=== PATIENT | female | born 1950 | race Caucasian/White ===

== ENCOUNTER → 2017-08-28 05:00 | Outpatient (REF) | payer MEDICARE, SELFPAY ==
[2017-08-28 09:52] LABS: Valproic Acid (Depakene) Level 62 ug/mL (50-100)
[2017-08-28 09:57] LABS: AST(SGOT) 18 U/L (15-37); Alanine Aminotransfer ALT/SGPT 29 U/L (13-56); Albumin, Serum 3.3 g/dL (3.2-5.0); Alkaline Phosphatase 72 U/L (45-117); Bilirubin, Direct < 0.05 mg/dL (0.00-0.30); Globulin 3.5 g/dL (2.2-4.2); Protein, Total 6.8 g/dL (6.4-8.2)
== END ==
LOC: OLS.WHLBEN 05:00
PROVIDERS: Visit Provider Family Medicine
DX: Z79.899 Other long term (current) drug therapy (principal)
CPT/HCPCS: 36415; 80076; 80164

== ENCOUNTER → 2017-11-21 05:00 | Outpatient (REF) | payer MEDICARE, SELFPAY ==
[2017-11-21 08:14] LABS: Hemoglobin 13.1 g/dl (12.0-15.0); Mean Corp Hgb Conc 33.6 g/gl (32-36); Mean Corpuscular Hgb 31.6 pg (27.0-32.0); Mean Platelet Vol. 10.7 fl (6.2-12.0); Platelet Count 261 K/mm3 (150-450); RBC Distribution Width CV 14.1 % (11.6-14.6); Red Blood Count 4.15 M/mm3 (4.2-5.4); White Blood Count 9.6 K/mm3 (4.4-11.0)
[2017-11-21 08:21] LABS: Scan Indicated on CBC? Y/N NO
[2017-11-21 08:26] LABS: Albumin, Serum 3.5 g/dL (3.2-5.0); BUN 10 mg/dL (7-18); BUN/Creat Ratio 14.9 RATIO (10-20); Creatinine, Serum 0.67 mg/dL (0.55-1.02); EST Glomerular Filtration Rate 93 mL/min (>60); Est Glom Filt Rate - Afr Amer 113 mL/min (>60); Glucose 112 mg/dL (74-106); Protein, Total 7.2 g/dL (6.4-8.2)
[2017-11-21 08:27] LABS: AST(SGOT) 11 U/L (15-37); Alanine Aminotransfer ALT/SGPT 20 U/L (13-56); Alkaline Phosphatase 77 U/L (45-117); Anion Gap 8 (5-15); Bilirubin, Direct < 0.05 mg/dL (0.00-0.30); Calcium,Total 8.9 mg/dL (8.5-10.1); Chloride 98 mmol/L (98-107); Cholesterol 105 mg/dL (200); Globulin 3.7 g/dL (2.2-4.2); High Density Lipoprotein 34 mg/dL; Potassium 4.7 mmol/L (3.5-5.1); Sodium Level 135 mmol/L (136-145); Total Bilirubin < 0.10 mg/dL (0.20-1.00); Triglycerides 156 mg/dL; Very Low Density Lipoprotein 31 mg/dL (5-40)
[2017-11-21 08:28] LABS: Valproic Acid (Depakene) Level 60 ug/mL (50-100)
[2017-11-21 08:49] LABS: Vitamin D,25 Hydroxy 42.1 ng/mL (29.95-100.01)
[2017-11-21 08:50] LABS: Hemoglobin A1c 6.9 % (4.2-6.3)
== END ==
LOC: OLS.WHLBEN 05:00
PROVIDERS: Visit Provider Family Medicine
DX: E11.9 Type 2 diabetes mellitus without complications (principal); I10 Essential (primary) hypertension; E78.5 Hyperlipidemia, unspecified; E55.9 Vitamin D deficiency, unspecified
CPT/HCPCS: 36415; 80048; 80061; 80076; 80164; 82306; 83036; 85027

== ENCOUNTER → 2017-12-22 07:20 | Outpatient (REF) | payer MEDICARE, SELFPAY ==
[2017-12-23 16:24] LABS: Mucous, Urine 0 SEEN /hpf (<or=2+); Red Blood Cells-Urine 0 SEEN /hpf (0-5)
[2017-12-24 08:56] LABS: Anion Gap 10 (5-15); BUN 11 mg/dL (7-18); BUN/Creat Ratio 17.5 RATIO (10-20); Calcium,Total 8.5 mg/dL (8.5-10.1); Chloride 95 mmol/L (98-107); Creatinine, Serum 0.63 mg/dL (0.55-1.02); EST Glomerular Filtration Rate 101 mL/min (>60); Est Glom Filt Rate - Afr Amer 122 mL/min (>60); Glucose 106 mg/dL (74-106); Potassium 4.2 mmol/L (3.5-5.1); Sodium Level 133 mmol/L (136-145)
[2017-12-24 08:57] LABS: Thyroid Stim Hormone (TSH) 2.75 uIU/mL (0.358-3.74)
[2017-12-25 07:11] LABS: Bacteria RARE /hpf (None Seen); Color, Urine Yellow (Yellow); Glucose, Dipstick NEGATIVE (Normal); Ketone-Dipstick Negative (Negative); Leukocyte Esterase-Dipstick 25 /ul (Negative); Nitrite-Dipstick Negative (Negative); Occult Blood-Urine Negative /ul (Negative); Protein-Dipstick Negative (Negative); Specific Gravity, Urine 1.015 (1.002-1.030); Squamous Epithelial Cells - UA 0-5 SEEN /hpf (5-10); Urine Bilirubin Dipstick Negative (Negative); Urine Clarity Clear (Clear); Urine Urobilinogen Normal (Normal); White Blood Cells 0-5 SEEN /hpf (0-5)
[2017-12-25 20:26] LABS: Hematocrit 38.5 % (37-47); Mean Corp Hgb Conc 33.8 g/gl (32-36); Mean Corpuscular Hgb 31.3 pg (27.0-32.0); Mean Corpuscular Volume 92.5 fL (81-99); Platelet Count 258 K/mm3 (150-450); RBC Distribution Width CV 14.4 % (11.6-14.6); RBC Distribution Width SD 49.2 fl (35.1-43.9); Red Blood Count 4.16 M/mm3 (4.2-5.4); White Blood Count 9.6 K/mm3 (4.4-11.0)
[2017-12-25 20:27] LABS: Mean Platelet Vol. 10.5 fl (6.2-12.0); Scan Indicated on CBC? Y/N NO
== END ==
LOC: OLS.WHLBEN 07:20
PROVIDERS: Visit Provider Family Medicine
DX: I10 Essential (primary) hypertension (principal); E03.9 Hypothyroidism, unspecified; R41.0 Disorientation, unspecified
CPT/HCPCS: 36415; 80048; 81001; 84443; 85027; 87086; 87088

== ENCOUNTER → 2018-01-09 05:00 | Outpatient (REF) | payer MEDICARE, SELFPAY ==
[2018-01-09 07:06] LABS: Valproic Acid (Depakene) Level 81 ug/mL (50-100)
== END ==
LOC: OLS.WHLBEN 05:00
PROVIDERS: Visit Provider Family Medicine
DX: Z79.899 Other long term (current) drug therapy (principal)
CPT/HCPCS: 36415; 80164

== ENCOUNTER → 2018-01-28 05:00 | Outpatient (REF) | payer MEDICARE, SELFPAY ==
[2018-01-28 09:28] LABS: Hematocrit 38.9 % (37-47); Hemoglobin 13.1 g/dl (12.0-15.0); Mean Corp Hgb Conc 33.7 g/gl (32-36); Mean Corpuscular Hgb 31.6 pg (27.0-32.0); Mean Platelet Vol. 10.9 fl (6.2-12.0); Platelet Count 257 K/mm3 (150-450); RBC Distribution Width CV 14.2 % (11.6-14.6); RBC Distribution Width SD 46.9 fl (35.1-43.9); Red Blood Count 4.14 M/mm3 (4.2-5.4); White Blood Count 8.8 K/mm3 (4.4-11.0)
[2018-01-28 09:38] LABS: Scan Indicated on CBC? Y/N NO
[2018-01-28 09:48] LABS: AST(SGOT) 13 U/L (15-37); Alanine Aminotransfer ALT/SGPT 18 U/L (13-56); Albumin, Serum 3.5 g/dL (3.2-5.0); Alkaline Phosphatase 74 U/L (45-117); Anion Gap 10 (5-15); BUN 10 mg/dL (7-18); BUN/Creat Ratio 15.3 RATIO (10-20); Calcium,Total 8.6 mg/dL (8.5-10.1); Chloride 98 mmol/L (98-107); Creatinine, Serum 0.65 mg/dL (0.55-1.02); EST Glomerular Filtration Rate 97 mL/min (>60); Est Glom Filt Rate - Afr Amer 117 mL/min (>60); Globulin 3.5 g/dL (2.2-4.2); Glucose 96 mg/dL (74-106); Sodium Level 136 mmol/L (136-145); Thyroid Stim Hormone (TSH) 4.45 uIU/mL (0.358-3.74)
== END ==
LOC: OLS.WHLBEN 05:00
PROVIDERS: Visit Provider Family Medicine
DX: I10 Essential (primary) hypertension (principal); E78.5 Hyperlipidemia, unspecified
CPT/HCPCS: 36415; 80053; 84443; 85027

== ENCOUNTER → 2018-02-25 05:00 | Outpatient (REF) | payer MEDICARE, MEDICAID, SELFPAY ==
[2018-02-25 09:39] LABS: Valproic Acid (Depakene) Level 83 ug/mL (50-100)
[2018-02-25 09:52] LABS: AST(SGOT) 15 U/L (15-37); Alanine Aminotransfer ALT/SGPT 18 U/L (13-56); Albumin, Serum 3.6 g/dL (3.2-5.0); Alkaline Phosphatase 76 U/L (45-117); Bilirubin, Direct 0.05 mg/dL (0.00-0.30); Globulin 3.9 g/dL (2.2-4.2); Protein, Total 7.5 g/dL (6.4-8.2); Thyroid Stim Hormone (TSH) 3.71 uIU/mL (0.358-3.74)
== END ==
LOC: OLS.WHLBEN 05:00
PROVIDERS: Visit Provider Family Medicine
DX: E78.5 Hyperlipidemia, unspecified (principal); E03.9 Hypothyroidism, unspecified; Z79.899 Other long term (current) drug therapy
CPT/HCPCS: 36415; 80076; 80164; 84443

== ENCOUNTER → 2018-03-06 16:00 | Outpatient (REF) | payer MEDICARE, SELFPAY ==
[2018-03-07 09:16] LABS: Color, Urine Yellow (Yellow); Glucose, Dipstick Normal (Normal); Ketone-Dipstick Negative (Negative); Leukocyte Esterase-Dipstick 100 /ul (Negative); Nitrite-Dipstick Negative (Negative); Occult Blood-Urine Negative /ul (Negative); Protein-Dipstick Negative (Negative); Urine Bilirubin Dipstick Negative (Negative); Urine Clarity Sl. Cloudy (Clear); Urine Urobilinogen Normal (Normal)
== END ==
LOC: OLS.WHLBEN 16:00
PROVIDERS: Visit Provider Family Medicine
DX: R10.2 Pelvic and perineal pain (principal); R41.0 Disorientation, unspecified
CPT/HCPCS: 81002; 87086; 87088

== ENCOUNTER → 2018-05-21 05:00 | Outpatient (REF) | payer MEDICARE, SELFPAY ==
[2018-05-21 08:48] LABS: Hematocrit 41.3 % (37-47); Hemoglobin 13.6 g/dl (12.0-15.0); Mean Corp Hgb Conc 32.9 g/gl (32-36); Mean Corpuscular Hgb 31.7 pg (27.0-32.0); Mean Corpuscular Volume 96.3 fL (81-99); Mean Platelet Vol. 11.1 fl (6.2-12.0); Platelet Count 294 K/mm3 (150-450); RBC Distribution Width CV 14.3 % (11.6-14.6); RBC Distribution Width SD 48.8 fl (35.1-43.9); Red Blood Count 4.29 M/mm3 (4.2-5.4); White Blood Count 9.9 K/mm3 (4.4-11.0)
[2018-05-21 08:52] LABS: Scan Indicated on CBC? Y/N NO
[2018-05-21 09:02] LABS: Valproic Acid (Depakene) Level 73 ug/mL (50-100)
[2018-05-21 09:11] LABS: Vitamin D,25 Hydroxy 29.2 ng/mL (29.95-100.01)
[2018-05-21 09:32] LABS: AST(SGOT) 11 U/L (15-37); Alanine Aminotransfer ALT/SGPT 20 U/L (13-56); Albumin, Serum 3.6 g/dL (3.2-5.0); Alkaline Phosphatase 74 U/L (45-117); Anion Gap 10 (5-15); BUN 19 mg/dL (7-18); BUN/Creat Ratio 28.1 RATIO (10-20); Bilirubin, Direct < 0.05 mg/dL (0.00-0.30); Chloride 101 mmol/L (98-107); Creatinine, Serum 0.68 mg/dL (0.55-1.02); EST Glomerular Filtration Rate 92 mL/min (>60); Est Glom Filt Rate - Afr Amer 112 mL/min (>60); Globulin 3.9 g/dL (2.2-4.2); Glucose 104 mg/dL (74-106); Potassium 4.3 mmol/L (3.5-5.1); Protein, Total 7.5 g/dL (6.4-8.2); Sodium Level 137 mmol/L (136-145)
== END ==
LOC: OLS.WHLBEN 05:00
PROVIDERS: Visit Provider Family Medicine
DX: E11.9 Type 2 diabetes mellitus without complications (principal); I10 Essential (primary) hypertension; E78.5 Hyperlipidemia, unspecified; Z79.899 Other long term (current) drug therapy
CPT/HCPCS: 36415; 80048; 80076; 80164; 82306; 85027

== ENCOUNTER → 2018-07-03 11:03 | Outpatient (CLI) | payer MEDICARE, SELFPAY ==
[2018-07-03 12:13] LABS: Vitamin B12 1578 pg/mL (211-911)
[2018-07-03 12:16] LABS: Anion Gap 9 (5-15); Chloride 100 mmol/L (98-107); Potassium 4.5 mmol/L (3.5-5.1); Sodium Level 137 mmol/L (136-145); Thyroid Stim Hormone (TSH) 2.18 uIU/mL (0.358-3.74)
[2018-07-04 23:53] LABS: Rapid Plasmin Reagin (RPR) NONREACTIVE (NONREACTIVE)
--- OUTSIDE RECORDS SUMMARY | 2018-10-04 15:23 | XMS RPT_ITS ---
:1950 Author Organization OHIP Support Name Relationship Address Phone ABDIAZIZ HOYOSNIE Unavailable [phone] + [place] [address] ANNE MARIE, PRUDENCE Unavailable [address] + [place] [address] [employer] Unavailable [address] + [place] [address] Crilow, Vijaya Unavailable [address] + [place] [address] Anne Marie, Prudence Unavailable [address] + [place] [address] [employer] Unavailable [address] + [place] [address] Crilow, Vijaya Unavailable [address] + [place] [address] Anne Marie, Prudence Unavailable [address] + [place] [address] [employer] Unavailable [address] + [place] [address] CRILOW, VIJAYA Unavailable [address] + [place] [address] ANNE MARIE, PRUDENCE Unavailable [address] + [place] [address] [employer] Unavailable [address] + [place] [address] Crilow, Vijaya Unavailable [address] + [place] [address] Anne Marie, Prudence Unavailable [address] + [place] [address] [employer] Unavailable [address] + [place] [address] Crilow, Vijaya Unavailable [address] + [place] [address] Anne Marie, Prudence Unavailable [address] + [place] [address] [employer] Unavailable [address] + [place] [address] Crilow, Vijaya Unavailable [address] + [place] [address] Anne Marie, Prudence Unavailable [address] + [place] [address] [employer] Unavailable [address] + [place] [address] Crilow, Vijaya Unavailable [address] + [place] [address] Anne Marie, Prudence Unavailable [address] + [place] [address] [employer] Unavailable [address] + [place] [address] Crilow, Vijaya Unavailable [address] + [place] [address] Anne Marie, Prudence Unavailable [address] + [place] [address] [employer] Unavailable [address] + [place] [address] Care Team Providers Name Role Phone Russell Montalvo Attending Unavailable Russell Montalvo Referring Magdy Novak Primary Care Unavailable Magdy Mcbride Attending Unavailable Mcbride, Magdy Attending Unavailable Mcbride, Magdy Attending Unavailable Mcbride, Magdy Attending Unavailable Mcbride, Magdy Attending Unavailable Mcbride, Magdy Attending Unavailable Mcbride, Magdy Attending Unavailable McbrideMagdy Attending Unavailable PROBLEMS PROBLEMS DATE TYPE CONDITION / CODE ATTENDING STATUS SOURCE 04/26/2018 Unknown G47.51 - Magdy Mcbride [facility] ar[facility]als [facility] Hospital G47.51(ICD-10) Repository 07/17/2018 Unknown E78.5 - Magdy Mcbride Hyperlipidemia, Community unspecified / Hospital E78.5(ICD-10) Repository 04/05/2018 Unknown I10 - Essential Magdy Mcbride (primary) [facility] hypertension / Hospital I10(ICD-10) Repository 04/04/2018 Unknown Z79.899 - Other Magdy Mcbride terminal gauger (current) [facility] drug therapy / Hospital Z79.899(ICD-10) Repository 03/06/2018 Unknown E03.9 - Magdy Mcbride Hypothyroidism, [facility] unspecified / Hospital E03.9(ICD-10) Repository 02/28/2018 Unknown E11.9 - Type 2 Magdy Mcbride diabetes mellitus Community without Hospital complications / Repository E11.9(ICD-10) PROCEDURES PROCEDURES No Procedure Records FoundRESULTS RESULTS VITAMIN B12 Collected: 07/03/2018 Status: F Source: [place] 11:07 AM [facility] [place] REPOSITORY TYPE CODE TESTS RESULT OUT OF REFERENCE UNITS RANGE LAB L503.0105 211-911 pg/mL High Vitamin B12 1578 Performed By: #### L503.0105 #### [facility] [address] [place], [place], [address] ELECTROLYTE PANEL Collected: 07/03/2018 Status: F Source: [place] 11:07 AM [facility] [place] REPOSITORY TYPE CODE TESTS RESULT OUT OF RANGE REFERENCE UNITS LAB L501.5300 136-145 mmol/L Normal NA 137 LAB L501.5600 3.5-5.1 mmol/L Normal K 4.5 LAB L501.5900 98-107 mmol/L Normal CL 100 LAB L501.6100 21.0-32.0 mmol/L Normal CO2 28.0 LAB L501.6200 5-15 Normal GAP 9 Performed By: #### L501.5294, L501.9520 #### [facility] [address] [place], [place], [address] THYROID STIM HORMONE Collected: 07/03/2018 Status: F Source: [place] (TSH) 11:07 AM [facility] [place] REPOSITORY TYPE CODE TESTS RESULT OUT OF RANGE REFERENCE UNITS LAB L501.9520 0.358-3.74 uIU/mL Normal TSH 2.18 Performed By: #### L501.5294, L501.9520 #### [facility] [address] [place], [place], [address] RAPID PLASMIN REAGIN Collected: 07/03/2018 Status: F Source: [place] (RPR) 11:07 AM [facility] [place] REPOSITORY TYPE CODE TESTS RESULT OUT OF REFERENCE UNITS RANGE LAB L700.5000 NONREACTIVE NONREACTIVE Normal RPR Performed By: #### L700.5000 #### [facility] [address] [place], [address] CBC-COMPLETE BLOOD CNT Collected: 05/21/2018 Status: F Source: [place] NO DIFF 6:55 AM [facility] [place] REPOSITORY Order Comment: 207 TYPE CODE TESTS RESULT OUT OF RANGE REFERENCE UNITS LAB L100.1000 4.4-11.0 K/mm3 Normal WBC 9.9 LAB L100.1200 4.2-5.4 M/mm3 Normal RBC 4.29 LAB L100.1300 12.0-15.0 g/dl Normal HGB 13.6 LAB L100.1400 37-47 % Normal HCT 41.3 LAB L100.1500 81-99 fL Normal MCV 96.3 LAB L100.1600 27.0-32.0 pg Normal MCH 31.7 LAB L100.1700 32-36 g/gl Normal MCHC 32.9 LAB L100.1810 11.6-14.6 % Normal RDW CV 14.3 LAB L100.1820 35.1-43.9 fl High RDW SD 48.8 LAB L100.1900 150-450 K/mm3 Normal PLT 294 LAB L100.2000 6.2-12.0 fl Normal MPV 11.1 Performed By: #### L100.0500 #### [facility] [address] [place], [place], [address] VALPROIC ACID Collected: 05/21/2018 Status: F Source: [place] (DEPAKENE) LEVEL 6:55 AM [facility] [place] REPOSITORY Order Comment: 207 TYPE CODE TESTS RESULT OUT OF RANGE REFERENCE UNITS LAB L501.8100 50-100 ug/mL Normal VALPROIC ACID 73 Performed By: #### L501.8100 #### [facility] [place], [address] VITAMIN D,25 HYDROXY Collected: 05/21/2018 Status: F Source: [place] 6:55 AM [facility] [place] REPOSITORY Order Comment: 207 TYPE CODE TESTS RESULT OUT OF REFERENCE UNITS RANGE LAB L506.1000 29.95-100.01 ng/mL Low Vitamin D 29.2 25-OH Result Comment: Vitamin D 25(OH) Status Range Deficiency <20 ng/mL (50nmol/L) Insuffciency 20 - 30 ng/mL (50 - 75 nmol/L) Sufficiency 30 - 100 ng/mL (75 - 250 nmol/L) Toxicity >100 ng/mL (>250 nmol/L) Performed By: #### L506.1000 #### [facility] [address] [place], [address] BASIC METABOLIC Collected: 05/21/2018 Status: F Source: [place] PROFILE (BMP) 6:55 AM [facility] [place] REPOSITORY Order Comment: 207 TYPE CODE TESTS RESULT OUT OF RANGE REFERENCE UNITS LAB L501.0100 74-106 mg/dL Normal GLU 104 Result Comment: Fasting Glucose result from 100 to 125 mg/dL suggests IMPAIRED HOMEOSTASIS per A.D.A. criteria. Please note revised GLUCOSE reference range effective 2017. LAB L501.1000 7-18 mg/dL High BUN 19 LAB L501.1100 0.55-1.02 mg/dL Normal CREAT,SERUM 0.68 Result Comment: The validity of the calculated GFR AND GFRAA in patients over 70 years has not been determined. Clinical correlation is essential. LAB L501.1110 >60 mL/min Normal EST GFR 92 Result Comment: Non- GFR Calc LAB L501.1115 >60 mL/min Normal EST GFR - AA 112 Result Comment: GFR Calc LAB L501.1300 10-20 RATIO High BUN/CRE 28.1 LAB L501.2200 8.5-10.1 mg/dL CA Normal 9.0 LAB L501.5300 136-145 mmol/L NA Normal 137 LAB L501.5600 3.5-5.1 mmol/L K Normal 4.3 LAB L501.5900 98-107 mmol/L CL Normal 101 LAB L501.6100 21.0-32.0 mmol/L Normal CO2 26.0 LAB L501.6200 5-15 Normal GAP 10 Performed By: #### L500.2500, L500.3400 #### [facility] [address] [place], [address] LIVER PROFILE Collected: 05/21/2018 Status: F Source: [place] 6:55 AM [facility] [place] REPOSITORY Order Comment: 207 TYPE CODE TESTS RESULT OUT OF RANGE REFERENCE UNITS LAB L501.1500 6.4-8.2 g/dL Normal T PROT 7.5 LAB L501.1800 3.2-5.0 g/dL Normal ALB 3.6 LAB L501.1950 2.2-4.2 g/dL Normal GLOB 3.9 LAB L501.4100 15-37 U/L Low AST 11 LAB L501.4305 45-117 U/L Normal ALK P 74 LAB L501.4405 13-56 U/L Normal ALT 20 LAB L501.4600 0.20-1.00 mg/dL Normal T BILI 0.20 LAB L501.4700 0.00-0.30 mg/dL Normal D BILI < 0.05 Performed By: #### L500.2500, L500.3400 #### [facility] [address] [place], [place], [address] URINALYSIS, ROUTINE Collected: 03/06/2018 Status: F Source: [place] (DIPSTICK) 4:00 PM [facility] [place] REPOSITORY Order Comment: How was Urine Obtained? Urine, Random TYPE CODE TESTS RESULT OUT OF RANGE REFERENCE UNITS LAB L400.3000 Yellow COLOR Normal Yellow LAB L400.3050 Clear Normal CLARITY Sl. Cloudy LAB L400.3200 Normal mg/dl Normal GLUCOSE, UR Normal LAB L400.3300 Negative mg/dL Normal BILIRUBIN URINE Negative LAB L400.3400 Negative mg/dl Normal KETONE UR Negative LAB L400.3465 1.002-1.030 Normal SP.GR. DIPSTX 1.020 LAB L400.3550 5.0 - 8.0 pH UR Normal 6.0 LAB L400.3600 Negative mg/dl PROT Normal DIPSTX Negative LAB L400.3700 Normal mg/dl Normal UROBILI Normal LAB L400.3750 Negative Normal NITRITE UR Negative LAB L400.3780 Negative /ul Normal OCCULT BLOOD-UR Negative LAB L400.3800 Negative /ul High LEUK ESTERASE 100 Performed By: #### L400.2011 #### [facility] [address] [place], [place], [address] Observed: 03/06/2018 Status: F Source: [place] CULTURE, URINE 4:00 PM [facility] [place] REPOSITORY Urine Culture Below infection level. ORGANISM 1: Mixed Gram Pos AND Gram Neg Org [place] Count <1000 Performed By: #### M100.0650 #### [facility] [address] [place], [address] VALPROIC ACID Collected: 02/25/2018 Status: F Source: [place] (DEPAKENE) LEVEL 7:55 AM [facility] [place] REPOSITORY Order Comment: 207 TYPE CODE TESTS RESULT OUT OF RANGE REFERENCE UNITS LAB L501.8100 50-100 ug/mL Normal VALPROIC ACID 83 Performed By: #### L501.8100 #### [facility] [place], [address] LIVER PROFILE Collected: 02/25/2018 Status: F Source: [place] 7:55 AM [facility] [place] REPOSITORY Order Comment: 207 TYPE CODE TESTS RESULT OUT OF RANGE REFERENCE UNITS LAB L501.1500 6.4-8.2 g/dL Normal T PROT 7.5 LAB L501.1800 3.2-5.0 g/dL Normal ALB 3.6 LAB L501.1950 2.2-4.2 g/dL Normal GLOB 3.9 LAB L501.4100 15-37 U/L Normal AST 15 LAB L501.4305 45-117 U/L Normal ALK P 76 LAB L501.4405 13-56 U/L Normal ALT 18 LAB L501.4600 0.20-1.00 mg/dL Normal T BILI 0.20 LAB L501.4700 0.00-0.30 mg/dL Normal D BILI 0.05 Performed By: #### L500.3400, L501.9520 #### [facility] [address] [place], [address] THYROID STIM HORMONE Collected: 02/25/2018 Status: F Source: [place] (TSH) 7:55 AM [facility] [place] REPOSITORY Order Comment: 207 TYPE CODE TESTS RESULT OUT OF RANGE REFERENCE UNITS LAB L501.9520 0.358-3.74 uIU/mL Normal TSH 3.71 Performed By: #### L500.3400, L501.9520 #### [facility] [address] [place], [place], [address] CBC-COMPLETE BLOOD CNT Collected: 01/28/2018 Status: F Source: [place] NO DIFF 6:55 AM [facility] [place] REPOSITORY Order Comment: 207 TYPE CODE TESTS RESULT OUT OF RANGE REFERENCE UNITS LAB L100.1000 4.4-11.0 K/mm3 Normal WBC 8.8 LAB L100.1200 4.2-5.4 M/mm3 Low RBC 4.14 LAB L100.1300 12.0-15.0 g/dl Normal HGB 13.1 LAB L100.1400 37-47 % Normal HCT 38.9 LAB L100.1500 81-99 fL Normal MCV 94.0 LAB L100.1600 27.0-32.0 pg Normal MCH 31.6 LAB L100.1700 32-36 g/gl Normal MCHC 33.7 LAB L100.1810 11.6-14.6 % Normal RDW CV 14.2 LAB L100.1820 35.1-43.9 fl High RDW SD 46.9 LAB L100.1900 150-450 K/mm3 Normal PLT 257 LAB L100.2000 6.2-12.0 fl Normal MPV 10.9 Performed By: #### L100.0500 #### [facility] [address] [place], [place], [address] COMPREHENSIVE METABOLIC Collected: 01/28/2018 Status: F Source: [place] PROFIL 6:55 AM [facility] [place] REPOSITORY Order Comment: 207 TYPE CODE TESTS RESULT OUT OF RANGE REFERENCE UNITS LAB L501.0100 74-106 mg/dL Normal GLU 96 Result Comment: Please note revised GLUCOSE reference range effective 2017. LAB L501.1000 7-18 mg/dL Normal BUN 10 LAB L501.1100 0.55-1.02 mg/dL Normal CREAT,SERUM 0.65 Result Comment: The validity of the calculated GFR AND GFRAA in patients over 70 years has not been determined. Clinical correlation is essential. LAB L501.1110 >60 mL/min Normal EST GFR 97 Result Comment: Non- GFR Calc LAB L501.1115 >60 mL/min Normal EST GFR - AA 117 Result Comment: GFR Calc LAB L501.1300 10-20 RATIO Normal BUN/CRE 15.3 LAB L501.1500 6.4-8.2 g/dL T Normal PROT 7.0 LAB L501.1800 3.2-5.0 g/dL Normal ALB 3.5 LAB L501.1950 2.2-4.2 g/dL Normal GLOB 3.5 LAB L501.2000 0.9-2.4 RATIO Normal A/G 1.0 LAB L501.2200 8.5-10.1 mg/dL CA Normal 8.6 LAB L501.4100 15-37 U/L Low AST 13 LAB L501.4305 45-117 U/L Normal ALK P 74 LAB L501.4405 13-56 U/L Normal ALT 18 LAB L501.4600 0.20-1.00 mg/dL T Normal BILI 0.20 LAB L501.5300 136-145 mmol/L NA Normal 136 LAB L501.5600 3.5-5.1 mmol/L K Normal 4.0 LAB L501.5900 98-107 mmol/L CL Normal 98 LAB L501.6100 21.0-32.0 mmol/L Normal CO2 28.0 LAB L501.6200 5-15 Normal GAP 10 Performed By: #### L500.4050, L501.9520 #### [facility] [address] [place], [place], [address] THYROID STIM HORMONE Collected: 01/28/2018 Status: F Source: [place] (TSH) 6:55 AM [facility] [place] REPOSITORY Order Comment: 207 TYPE CODE TESTS RESULT OUT OF RANGE REFERENCE UNITS LAB L501.9520 0.358-3.74 uIU/mL High TSH 4.45 Performed By: #### L500.4050, L501.9520 #### [facility] [address] [place], [address] VALPROIC ACID Collected: 01/09/2018 Status: F Source: [place] (DEPAKENE) LEVEL 5:40 AM [facility] [place] REPOSITORY Order Comment: ROOM 207 TYPE CODE TESTS RESULT OUT OF RANGE REFERENCE UNITS LAB L501.8100 50-100 ug/mL Normal VALPROIC ACID 81 Performed By: #### L501.8100 #### [facility] [address] [place], [place], [address] BASIC METABOLIC Collected: 12/22/2017 Status: F Source: [place] PROFILE (BMP) 7:20 AM [facility] [place] REPOSITORY Order Comment: RESULT(S) PREVIOUSLY REPORTED ON MANUAL REQUISITION DURING DOWNTIME. TYPE CODE TESTS RESULT OUT OF RANGE REFERENCE UNITS LAB L501.0100 74-106 mg/dL Normal GLU 106 Result Comment: Fasting Glucose result from 100 to 125 mg/dL suggests IMPAIRED HOMEOSTASIS per A.D.A. criteria. Please note revised GLUCOSE reference range effective 2017. LAB L501.1000 7-18 mg/dL Normal BUN 11 LAB L501.1100 0.55-1.02 mg/dL Normal CREAT,SERUM 0.63 Result Comment: The validity of the calculated GFR AND GFRAA in patients over 70 years has not been determined. Clinical correlation is essential. LAB L501.1110 >60 mL/min Normal EST GFR 101 LAB L501.1115 >60 mL/min Normal EST GFR - AA 122 LAB L501.1300 10-20 RATIO Normal BUN/CRE 17.5 LAB L501.2200 8.5-10.1 mg/dL Normal CA 8.5 LAB L501.5300 136-145 mmol/L Low NA 133 LAB L501.5600 3.5-5.1 mmol/L Normal K 4.2 LAB L501.5900 98-107 mmol/L Low CL 95 LAB L501.6100 21.0-32.0 mmol/L Normal CO2 28.0 LAB L501.6200 5-15 Normal GAP 10 Performed By: #### L500.2500, L501.9520 #### [facility] [address] [place], [address] THYROID STIM HORMONE Collected: 12/22/2017 Status: F Source: [place] (TSH) 7:20 AM [facility] [place] REPOSITORY Order Comment: RESULT(S) PREVIOUSLY REPORTED ON MANUAL REQUISITION DURING DOWNTIME. TYPE CODE TESTS RESULT OUT OF RANGE REFERENCE UNITS LAB L501.9520 0.358-3.74 uIU/mL Normal TSH 2.75 Performed By: #### L500.2500, L501.9520 #### [facility] [address] [place], [place], [address] CBC-COMPLETE BLOOD CNT Collected: 12/22/2017 Status: F Source: [place] NO DIFF 7:20 AM [facility] [place] REPOSITORY Order Comment: RESULT(S) PREVIOUSLY REPORTED ON MANUAL REQUISITION DURING DOWNTIME. TYPE CODE TESTS RESULT OUT OF RANGE REFERENCE UNITS LAB L100.1000 4.4-11.0 K/mm3 Normal WBC 9.6 LAB L100.1200 4.2-5.4 M/mm3 Low RBC 4.16 LAB L100.1300 12.0-15.0 g/dl Normal HGB 13.0 LAB L100.1400 37-47 % Normal HCT 38.5 LAB L100.1500 81-99 fL Normal MCV 92.5 LAB L100.1600 27.0-32.0 pg Normal MCH 31.3 LAB L100.1700 32-36 g/gl Normal MCHC 33.8 LAB L100.1810 11.6-14.6 % Normal RDW CV 14.4 LAB L100.1820 35.1-43.9 fl High RDW SD 49.2 LAB L100.1900 150-450 K/mm3 Normal PLT 258 LAB L100.2000 6.2-12.0 fl Normal MPV 10.5 Performed By: #### L100.0500 #### [facility] [place], [place], [address] Observed: 12/21/2017 Status: F Source: [place] CULTURE, URINE 9:00 PM [facility] [place] REPOSITORY Urine Culture Below infection level. ORGANISM 1: Mixed Gram Positive Organisms [place] Count 1000-10,000 Performed By: #### M100.0650 #### [facility] [address] [place], [place], [address] URINALYSIS, COMPLETE Collected: 12/21/2017 Status: F Source: [place] 9:00 PM [facility] [place] REPOSITORY Order Comment: RESULT(S) PREVIOUSLY REPORTED ON MANUAL REQUISITION DURING DOWNTIME. How was Urine Obtained? CLEAN CATCH TYPE CODE TESTS RESULT OUT OF RANGE REFERENCE UNITS LAB L400.3000 Yellow COLOR Normal Yellow LAB L400.3050 Clear Normal CLARITY Clear LAB L400.3200 Normal mg/dl Normal GLUCOSE, UR NEGATIVE LAB L400.3300 Negative mg/dL Normal BILIRUBIN URINE Negative LAB L400.3400 Negative mg/dl Normal KETONE UR Negative LAB L400.3465 1.002-1.030 Normal SP.GR. DIPSTX 1.015 LAB L400.3550 5.0 - 8.0 pH UR Normal 6.0 LAB L400.3600 Negative mg/dl PROT Normal DIPSTX Negative LAB L400.3700 Normal mg/dl Normal UROBILI Normal LAB L400.3750 Negative Normal NITRITE UR Negative LAB L400.3780 Negative /ul Normal OCCULT BLOOD-UR Negative LAB L400.3800 Negative /ul High LEUK 25 ESTERASE LAB L400.4050 0-5 /hpf WBC Normal 0-5 SEEN LAB L400.4100 0-5 /hpf 0 Normal RBC-UA SEEN LAB L400.4150 5-10 /hpf SQUAM Normal EPI 0-5 SEEN LAB L400.4300 None Seen /hpf Normal BACTERIA RARE LAB L400.4350 <or=2+ /hpf 0 Normal MUCUS, URINE SEEN Performed By: #### L400.0001 #### [facility] [address] [place], [address] CBC-COMPLETE BLOOD CNT Collected: 11/21/2017 Status: F Source: [place] NO DIFF 7:10 AM [facility] [place] REPOSITORY Order Comment: ROOM 207 TYPE CODE TESTS RESULT OUT OF RANGE REFERENCE UNITS LAB L100.1000 4.4-11.0 K/mm3 Normal WBC 9.6 LAB L100.1200 4.2-5.4 M/mm3 Low RBC 4.15 LAB L100.1300 12.0-15.0 g/dl Normal HGB 13.1 LAB L100.1400 37-47 % Normal HCT 39.0 LAB L100.1500 81-99 fL Normal MCV 94.0 LAB L100.1600 27.0-32.0 pg Normal MCH 31.6 LAB L100.1700 32-36 g/gl Normal MCHC 33.6 LAB L100.1810 11.6-14.6 % Normal RDW CV 14.1 LAB L100.1820 35.1-43.9 fl High RDW SD 47.0 LAB L100.1900 150-450 K/mm3 Normal PLT 261 LAB L100.2000 6.2-12.0 fl Normal MPV 10.7 Performed By: #### L100.0500 #### [facility] [address] [place], [place], [address] BASIC METABOLIC Collected: 11/21/2017 Status: F Source: [place] PROFILE (BMP) 7:10 AM [facility] [place] REPOSITORY Order Comment: ROOM 207 TYPE CODE TESTS RESULT OUT OF RANGE REFERENCE UNITS LAB L501.0100 74-106 mg/dL High GLU 112 Result Comment: Fasting Glucose result from 100 to 125 mg/dL suggests IMPAIRED HOMEOSTASIS per A.D.A. criteria. Please note revised GLUCOSE reference range effective 2017. LAB L501.1000 7-18 mg/dL Normal BUN 10 LAB L501.1100 0.55-1.02 mg/dL Normal CREAT,SERUM 0.67 Result Comment: The validity of the calculated GFR AND GFRAA in patients over 70 years has not been determined. Clinical correlation is essential. LAB L501.1110 >60 mL/min Normal EST GFR 93 Result Comment: Non- GFR Calc LAB L501.1115 >60 mL/min Normal EST GFR - AA 113 Result Comment: GFR Calc LAB L501.1300 10-20 RATIO Normal BUN/CRE 14.9 LAB L501.2200 8.5-10.1 mg/dL CA Normal 8.9 LAB L501.5300 136-145 mmol/L Low NA 135 LAB L501.5600 3.5-5.1 mmol/L K Normal 4.7 LAB L501.5900 98-107 mmol/L CL Normal 98 LAB L501.6100 21.0-32.0 mmol/L Normal CO2 29.0 LAB L501.6200 5-15 Normal GAP 8 Performed By: #### L500.2500, L500.3400, L500.4100 #### [facility] [address] [place], [address] LIVER PROFILE Collected: 11/21/2017 Status: F Source: [place] 7:10 AM [facility] REPOSITORY Order Comment: ROOM 207 TYPE CODE TESTS RESULT OUT OF RANGE REFERENCE UNITS LAB L501.1500 6.4-8.2 g/dL Normal T PROT 7.2 LAB L501.1800 3.2-5.0 g/dL Normal ALB 3.5 LAB L501.1950 2.2-4.2 g/dL Normal GLOB 3.7 LAB L501.4100 15-37 U/L Low AST 11 LAB L501.4305 45-117 U/L Normal ALK P 77 LAB L501.4405 13-56 U/L Normal ALT 20 LAB L501.4600 0.20-1.00 mg/dL Low T BILI < 0.10 LAB L501.4700 0.00-0.30 mg/dL Normal D BILI < 0.05 Performed By: #### L500.2500, L500.3400, L500.4100 #### [facility] [address] [place], [address] LIPID PROFILE Collected: 11/21/2017 Status: F Source: [place] 7:10 AM [facility] [place] REPOSITORY Order Comment: ROOM 207 TYPE CODE TESTS RESULT OUT OF RANGE REFERENCE UNITS LAB L501.4900 200 mg/dL Normal CHOL 105 Result Comment: <200 mg/dL Desirable 200-240 mg/dL Borderline >240 mg/dL High Risk LAB L501.5000 mg/dL Normal TRIG 156 Result Comment: The drugs N-Acetylcysteine and Metamizole may falsely depress this assay. Serum Triglycerides Reference Interval Normal <150 mg/dL Borderline high 150 - 199 mg/dL High 200 - 499 mg/dL Very High > or = 500 mg/dL LAB L501.6400 mg/dL Low HDL 34 Result Comment: The drugs N-Acetylcysteine and Metamizole may falsely depress this assay. Reference Range HDL <40 mg/dL Low HDL Cholesterol HDL >or= 60 mg/dL High HDL Cholesterol LAB L501.6500 0-130 mg/dL Normal LDL 40 LAB L501.6600 5-40 mg/dL Normal VLDL 31 Performed By: #### L500.2500, L500.3400, L500.4100 #### [facility] [address] [place], [address] VALPROIC ACID Collected: 11/21/2017 Status: F Source: [place] (DEPAKENE) LEVEL 7:10 AM [facility] REPOSITORY Order Comment: ROOM 207 TYPE CODE TESTS RESULT OUT OF RANGE REFERENCE UNITS LAB L501.8100 50-100 ug/mL Normal VALPROIC ACID 60 Performed By: #### L501.8100 #### [facility] [address] [place], [address] VITAMIN D,25 HYDROXY Collected: 11/21/2017 Status: F Source: [place] 7:10 AM [facility] REPOSITORY Order Comment: ROOM 207 TYPE CODE TESTS RESULT OUT OF RANGE REFERENCE UNITS LAB L506.1000 29.95-100.01 ng/mL Normal Vitamin D 42.1 25-OH Result Comment: Vitamin D 25(OH) Status Range Deficiency <20 ng/mL (50nmol/L) Insuffciency 20 - 30 ng/mL (50 - 75 nmol/L) Sufficiency 30 - 100 ng/mL (75 - 250 nmol/L) Toxicity >100 ng/mL (>250 nmol/L) Performed By: #### [id number] #### [facility] [address] [place], [address] HEMOGLOBIN A1C Collected: 11/21/2017 Status: F Source: [place] 7:10 AM [facility] [place] REPOSITORY Order Comment: ROOM 207 TYPE CODE TESTS RESULT OUT OF RANGE REFERENCE UNITS LAB L501.9985 4.2-6.3 % High HGB A1C 6.9 Performed By: #### [id number] #### [facility] [address] [place], [address] VALPROIC ACID Collected: 08/28/2017 Status: F Source: MIR[place] (DEPAKENE) LEVEL 5:30 AM [facility] [place] REPOSITORY Order Comment: ROOM 207 TYPE CODE TESTS RESULT OUT OF RANGE REFERENCE UNITS LAB L501.8100 50-100 ug/mL Normal VALPROIC ACID 62 Performed By: #### [id number] #### [facility] [address] [place], [address] LIVER PROFILE Collected: 08/28/2017 Status: F Source: [place] 5:30 AM [facility] [facility] REPOSITORY Order Comment: ROOM 207 TYPE CODE TESTS RESULT OUT OF RANGE REFERENCE UNITS LAB L501.1500 6.4-8.2 g/dL Normal T PROT 6.8 LAB L501.1800 3.2-5.0 g/dL Normal ALB 3.3 LAB L501.1950 2.2-4.2 g/dL Normal GLOB 3.5 LAB L501.4100 15-37 U/L Normal AST 18 LAB L501.4305 45-117 U/L Normal ALK P 72 LAB L501.4405 13-56 U/L Normal ALT 29 Result Comment: Please note revised ALT reference range effective 2017. LAB L501.4600 0.20-1.00 mg/dL Normal T BILI 0.30 LAB L501.4700 0.00-0.30 mg/dL Normal D < BILI 0.05 Performed By: #### L500.3400 #### [facility] [address], [address] ALLERGIES ALLERGIES DATE TYPE / CODE NAME / CODE REACTION SEVERITY SOURCE 02/23/2014 Drug Penicillins/F Unknown Unknown [facility] Allergy/4160 [id number](RXN Hospital 21814(SNOMED ORM) Repository CT) 02/23/2014 Drug Sulfa Unknown Unknown [facility] Allergy/4160 ([facility] [address]86(SNOMED Antibiotics)/ Repository CT) [id number](RX NORM) ENCOUNTERS ENCOUNTERS ADMIT/DISCHARGE ACCOUNT ADMITTING ENCOUNTER LOCATION SOURCE NUMBER CLASS 07/03/2018 [id number] Ambulatory [address] ing:LAB Repository 05/21/2018 [id number] Ambulatory [address] ing:OLS.LBE Repository N 03/06/2018 [id number] Ambulatory [address] ing:OLS.WHLBE Repository N 02/25/2018 [id number] Ambulatory [facility] 4 [facility] ing:OLS.WHLBE Repository N 01/28/2018 [id number] Ambulatory Thiells Thiells 0 [facility] ing:OLS.WHLBE Repository N 01/09/2018 [id number] Ambulatory Thiells Thiells 1 [facility] ing:OLS.WHLBE Repository N 12/22/2017 [id number] Ambulatory Thiells Thiells 8 [facility] ing:OLS.WHLBE Repository N 11/21/2017 [id number] Ambulatory Mirna Thiells 7 [facility] ing:OLS.WHLBE Repository N 08/28/2017 [id number] Ambulatory Mirna Thiells 1 [facility] ing:OLS.WHLBE Repository N PAYERS PAYERS ENCOUNTER GUARANTOR PAYER SUBSCRIBER SOURCE 07/03/2018 MIREYA Ritter Primary MIREYA Ritter Mirna [id number] Insurance:MYCARE CRSC REIDENBACHDOB: [facility] *IN [id number] Number: Repository [place], [place] [id number] [address]Gbu: (330) Date:[id number] [phone] () CLAIMS [address] [place] [address]NK: 07/03/2018 Secondary NOT GIVENUNK Mirna Insurance:SELF PAY [facility] Number: Effective Repository Date:2018-07-03 05/21/2018 Mireya Ritter Primary NOT GIVENUNK [place] [id number] Insurance:SELF PAY [facility] Number: Effective Repository Healthy Date:2018-05-21 [place], [place] [address]Crw: (HP) 03/06/2018 Mireya Ritter Primary Mireya J Mirna [id number] Insurance:MYCARE CRSC ReidenbachDOB: [facility] *IN [facility] [id number] Valley [facility] Number: Repository Healthy [id number] [place] Date:[id number] [address]Zkx: (330) CLAIM[phone] (HP) [address], [place] [address]JM: 03/06/2018 Secondary NOT GIVENUNK Mirna Insurance:SELF PAY [facility] Number: Effective Repository Date:2018-03-06 02/25/2018 MIREYA Ritter Primary MIREYA Ritter [place] [id number] Insurance:MEDICARE REIDENBACHDOB: [facility] PART A [facility] [id number]. [facility] HEALTHY Number: Repository [place], [place] [id number]: (330) Date:2018-02-25 [facility]-8640 (HP) 02/25/2018 Secondary MIREYA J Mirna Insurance:CARESOURCEP REIDENBACHDOB: [facility] Number: [id number] Hospital [id number] Repository Date:2018-02-25[address]ATTN: [place] [address]MM: 02/25/2018 Tertiary NOT GIVENUNK Thiells Insurance:SELF PAY [facility] Number: Effective Repository Date:2018-02-25 01/28/2018 Mireya Ritter Primary Mireya Ritter [place] [id number] Insurance:MYCARE CRSC ReidenbachDOB: [facility] *IN [facility] [id number] Valley Regional Medical Center Number: Repository Healthy [id number] [place] Date:[id number] [address]Noq: (330) [phone] (HP) [address] [address]NM: 01/28/2018 Secondary NOT GIVENUNK Thiells Insurance:SELF PAY [facility] Number: Effective Repository Date:2018-01-28 01/09/2018 Mireya Ritter Primary Mireya Ritter [place] [id number] Insurance:MYCARE CRSC ReidenbachDOB: [facility] *IN [facility] [id number] Valley Regional Medical Center Number: Repository Healthy [id number] [place] Date:[id number] [address]Dwa: (330) [phone] (HP) [place] [address]YG: 01/09/2018 Secondary NOT GIVENUNK Thiells Insurance:SELF PAY [facility] Number: Effective Repository Date:2018-01-09 12/22/2017 Mireya J Primary Mireya Jaureguioster [id number] Insurance:MYCARE CRSC ReidenbachDOB: [facility] *IN [facility] [id number] Valley Regional Medical Center Number: Repository Healthy [id number] [facility] Date:[id number] [id number]: (330) [phone] (HP) [place] [address]EC: 12/22/2017 Secondary NOT GIVENUNK Mirna Insurance:SELF PAY [facility] Number: Effective Repository Date:2017-12-22 11/21/2017 Mireya Ritter Primary Mireya Ritter Th[place] [id number] Insurance:MYCARE CRSC ReidenbachDOB: [facility] *IN [facility] [id number] Valley Regional Medical Center Number: Repository Healthy [id number] [facility] Date:[id number] [address]Xoo: (330) [phone] (HP) [address], [place] [address]PF: 11/21/2017 Secondary NOT GIVENUNK Mirna Insurance:SELF PAY [facility] Number: Effective Repository Date:2017-11-21 08/28/2017 Mireya Ritter Primary Mireya Jaureguioster [id number] Insurance:MEDICARE ReidenbachDOB: [facility] PART A [facility] [id number] Valley Regional Medical Center Number: Repository Healthy [id number] [facility] Date:2017-08-28 [address]Mlj: (HP) 08/28/2017 Secondary Mireya Bradley Insurance:MYCARE CRSC ReidenbachDOB: Community *IN [facility] [id number] Hospital Number: Repository [id number] Date:[id number] [place]S [address] [address]ZR: 08/28/2017 Tertiary NOT GIVENUNK Mirna Insurance:SELF PAY [facility] Number: Effective Repository Date:2017-08-28
== END ==
PROVIDERS: Family Provider Family Medicine; PCP Family Medicine; Referring Provider Psychiatry & Neurology Neurology; Visit Provider Psychiatry & Neurology Neurology
DX: F03.90 Unspecified dementia, unspecified severity, without behavioral disturbance, psychotic disturbance, mood disturbance, and anxiety (principal)
CPT/HCPCS: 36415; 80051; 82607; 84443; 86592

== ENCOUNTER → 2018-08-27 05:00 | Outpatient (REF) | payer MEDICARE, MEDICAID, SELFPAY ==
[2018-08-27 07:30] LABS: Absolute Lymphocyte Count 2.55 X10^3/ul (0.83-4.51); Basophil# 0.02 X10^3/uL; Basophil% 0.2 % (0-1); Eosinophil# 0.14 X10^3/uL; Eosinophils% 1.3 % (0-5); Hematocrit 39.9 % (37-47); Hemoglobin 12.6 g/dl (12.0-15.0); Lymphocyte # 2.55 X10^3/ul (4.0); Lymphocyte % 24.1 % (19-41); Mean Corp Hgb Conc 31.6 g/gl (32-36); Mean Corpuscular Hgb 31.2 pg (27.0-32.0); Mean Corpuscular Volume 98.8 fL (81-99); Mean Platelet Vol. 10.3 fl (6.2-12.0); Monocyte% 8.5 % (0-10); Neutrophil # 6.96 X10^3/uL (2.7-7.7); Neutrophil % 65.6 % (47-70); Platelet Count 228 K/mm3 (150-450); RBC Distribution Width CV 14.5 % (11.6-14.6); RBC Distribution Width SD 52.7 fl (35.1-43.9); Red Blood Count 4.04 M/mm3 (4.2-5.4); White Blood Count 10.6 K/mm3 (4.4-11.0)
[2018-08-27 07:31] LABS: POSITIVE COUNT NO; POSITIVE DIFFERENTIAL NO; POSITIVE MORPHOLOGY NO
[2018-08-27 07:43] LABS: Valproic Acid (Depakene) Level 74 ug/mL (50-100)
[2018-08-27 07:55] LABS: AST(SGOT) 13 U/L (15-37); Alanine Aminotransfer ALT/SGPT 12 U/L (13-56); Albumin, Serum 2.8 g/dL (3.2-5.0); Alkaline Phosphatase 57 U/L (45-117); Anion Gap 13 (5-15); BUN 9 mg/dL (7-18); BUN/Creat Ratio 15.7 RATIO (10-20); Bilirubin, Direct 0.06 mg/dL (0.00-0.30); Chloride 103 mmol/L (98-107); Creatinine, Serum 0.57 mg/dL (0.55-1.02); EST Glomerular Filtration Rate 112 mL/min (>60); Est Glom Filt Rate - Afr Amer 135 mL/min (>60); Globulin 3.4 g/dL (2.2-4.2); Glucose 76 mg/dL (74-106); Potassium 4.3 mmol/L (3.5-5.1); Protein, Total 6.2 g/dL (6.4-8.2); Sodium Level 136 mmol/L (136-145)
== END ==
LOC: OLS.WHLBEN 05:00
PROVIDERS: Visit Provider Family Medicine
DX: Z79.899 Other long term (current) drug therapy (principal); K52.9 Noninfective gastroenteritis and colitis, unspecified
CPT/HCPCS: 36415; 80048; 80076; 80164; 85025

== ENCOUNTER → 2018-11-19 05:00 | Outpatient (REF) | payer MEDICARE, SELFPAY ==
[2018-11-19 08:08] LABS: Absolute Lymphocyte Count 2.79 X10^3/ul (0.83-4.51); Absolute Neutrophil Count 6.1 X10^3/uL (2.0-7.7); Basophil# 0.01 X10^3/uL; Basophil% 0.1 % (0-1); Eosinophil# 0.06 X10^3/uL; Eosinophils% 0.6 % (0-5); Hematocrit 40.2 % (37-47); Hemoglobin 13.6 g/dl (12.0-15.0); Lymphocyte # 2.79 X10^3/ul (4.0); Mean Corp Hgb Conc 33.8 g/gl (32-36); Mean Corpuscular Hgb 31.9 pg (27.0-32.0); Mean Corpuscular Volume 94.1 fL (81-99); Mean Platelet Vol. 10.3 fl (6.2-12.0); Monocyte# 0.62 X10^3/uL; Monocyte% 6.4 % (0-10); Neutrophil # 6.12 X10^3/uL (2.7-7.7); Neutrophil % 63.7 % (47-70); Platelet Count 255 K/mm3 (150-450); RBC Distribution Width CV 14.4 % (11.6-14.6); RBC Distribution Width SD 49.1 fl (35.1-43.9); Red Blood Count 4.27 M/mm3 (4.2-5.4); White Blood Count 9.6 K/mm3 (4.4-11.0)
[2018-11-19 08:09] LABS: POSITIVE COUNT NO; POSITIVE DIFFERENTIAL NO; POSITIVE MORPHOLOGY NO
[2018-11-19 08:17] LABS: Anion Gap 9 (5-15); BUN 14 mg/dL (7-18); BUN/Creat Ratio 22.5 RATIO (10-20); Calcium,Total 8.8 mg/dL (8.5-10.1); Chloride 100 mmol/L (98-107); Cholesterol 122 mg/dL (200); Creatinine, Serum 0.62 mg/dL (0.55-1.02); EST Glomerular Filtration Rate 102 mL/min (>60); Est Glom Filt Rate - Afr Amer 123 mL/min (>60); Glucose 117 mg/dL (74-106); High Density Lipoprotein 39 mg/dL; Phosphorus 3.9 mg/dL (2.5-4.9); Sodium Level 135 mmol/L (136-145); Triglycerides 144 mg/dL; Very Low Density Lipoprotein 29 mg/dL (5-40)
[2018-11-19 08:29] LABS: Valproic Acid (Depakene) Level 76 ug/mL (50-100)
[2018-11-19 08:52] LABS: Vitamin D,25 Hydroxy 40.5 ng/mL (29.95-100.01)
== END ==
LOC: OLS.WHLBEN 05:00
PROVIDERS: Visit Provider Family Medicine
DX: Z79.899 Other long term (current) drug therapy (principal)
CPT/HCPCS: 36415; 80048; 80061; 80164; 82306; 84100; 85025

== ENCOUNTER → 2018-11-19 09:26 | Outpatient (CLI) | payer MEDICARE, SELFPAY ==
--- NOTE | 2018-11-19 09:43 | BD_ITS ---
STUDY: DUAL ENERGY X-RAY ABSORPTIOMETRY / DXA REASON FOR EXAM: Female, 68 years old. The patient is postmenopausal. TECHNIQUE: Bone Mineral Density (BMD) measurements of lumbar spine and bilateral hips were obtained. COMPARISON: Comparison is made with prior study dated February 03, 2010. FINDINGS: Lumbar Spine (L1-L4): g/cm2 (1.188) / T-score (0.2) / Z-score (1.8) Findings are suggestive of normal bone density with a low fracture risk. Left Femur Total: g/cm2 (1.094) / T-score (0.7) / Z-score (2.0) Left Femoral Neck: g/cm2 (0.971) / T-score (-0.5) / Z-score (1.0) Right Femur Total: g/cm2 (1.083) / T-score (0.6) / Z-score (1.9) Right Femoral Neck: g/cm2 (0.907) / T-score (-0.9) / Z-score (0.6) The T-Scores on the most recent prior examination were: Lumbar Spine (L1-L4): There has been improvement of bone density since the previous examination. Left Femur Total: which represents an improvement of 0.3%. Right Femur Total: which represents an improvement of 2.9%. BD/Dexa Bone Density Study IMPRESSION: The patient is considered normal as outlined below according to World Buster Organization (WHO) criteria with a low fracture risk. There has been improvement of bone density since the previous examination. Reference Information: The T-score is the number of standard deviations above or below the standard which is normal for young adults at their peak bone mineral density. The World Health Organization (WHO) interprets the T-scores as follows: Above -1 Normal bone density Between -1 and -2.5 Osteopenia Equal to / or below -2.5 Osteoporosis As a practical clinical guideline, osteopenia may be graded as follows: Mild -1 through -1.5 Moderate -1.6 through -2.0 Severe -2.1 through -2.4 The Z-score is the number of standard deviations above or below age-matched controls. A Z-score of less than -1.5 would be considered abnormal. References: 1. NIH Osteoporosis and Related Bone Diseases http://www.osteo.org 2. International Society for Clinical Densitometry http://www.iscd.org 3. National Osteoporosis Foundation http://www.nof.org Electronically Signed: Barrett Liu, at 16:00 EDT , Service support ,
== END ==
PROVIDERS: Family Provider Family Medicine; PCP Family Medicine; Referring Provider Family Medicine; Visit Provider Family Medicine
DX: Z78.0 Asymptomatic menopausal state (principal); Z79.899 Other long term (current) drug therapy
CPT/HCPCS: 36415; 77080; 80048; 80061; 80164; 82306; 84100; 85025

== ENCOUNTER → 2019-01-28 | Outpatient (REF) | payer MEDICARE, SELFPAY ==
[2019-01-28 07:52] LABS: Anion Gap 6 (5-15); BUN 36 mg/dL (7-18); BUN/Creat Ratio 42.2 RATIO (10-20); Calcium,Total 8.4 mg/dL (8.5-10.1); Chloride 101 mmol/L (98-107); Creatinine, Serum 0.85 mg/dL (0.55-1.02); EST Glomerular Filtration Rate 71 mL/min (>60); Est Glom Filt Rate - Afr Amer 85 mL/min (>60); Glucose 135 mg/dL (74-106); Potassium 3.8 mmol/L (3.5-5.1); Sodium Level 133 mmol/L (136-145)
[2019-01-28 08:37] LABS: Absolute Lymphocyte Count 2.04 X10^3/uL (0.83-4.51); Absolute Neutrophil Count 6.3 X10^3/uL (2.0-7.7); Basophil# 0.09 X10^3/uL; Basophil% 0.9 % (0-1); Eosinophil# 0.15 X10^3/uL; Eosinophils% 1.6 % (0-5); Hematocrit 36.9 % (37-47); Lymphocyte # 2.04 X10^3/ul (4.0); Lymphocyte % 21.2 % (19-41); Mean Corp Hgb Conc 32.5 g/dL (32-36); Mean Corpuscular Hgb 31.7 pg (27.0-32.0); Mean Corpuscular Volume 97.4 fL (81-99); Mean Platelet Vol. 10.9 fl (6.2-12.0); Monocyte# 1.01 X10^3/uL; Monocyte% 10.5 % (0-10); Neutrophil # 6.26 X10^3/uL (2.7-7.7); POSITIVE MORPHOLOGY YES; Platelet Count 234 K/mm3 (150-450); RBC Distribution Width CV 13.9 % (11.6-14.6); RBC Distribution Width SD 49.5 fl (35.1-43.9); Red Blood Count 3.79 M/mm3 (4.2-5.4); White Blood Count 9.6 K/mm3 (4.4-11.0)
[2019-01-28 08:42] LABS: Differential Indicated SCAN CRITERIA MET; POSITIVE COUNT NO; POSITIVE DIFFERENTIAL NO
== END | disposition home or self-care (01) ==
LOC: OLS.WHLBEN 05:00
PROVIDERS: Visit Provider Family Medicine
DX: R53.83 Other fatigue (principal)
CPT/HCPCS: 36415; 80048; 85025

== ENCOUNTER → 2019-02-19 05:00 | Outpatient (REF) | payer MEDICARE, SELFPAY ==
[2019-02-19 07:36] LABS: Valproic Acid (Depakene) Level 68 ug/mL (50-100)
[2019-02-19 07:43] LABS: AST(SGOT) 9 U/L (15-37); Alanine Aminotransfer ALT/SGPT 15 U/L (13-56); Albumin, Serum 3.3 g/dL (3.2-5.0); Alkaline Phosphatase 71 U/L (45-117); Bilirubin, Direct < 0.05 mg/dL (0.00-0.30); Globulin 3.6 g/dL (2.2-4.2); Protein, Total 6.9 g/dL (6.4-8.2)
== END ==
LOC: OLS.WHLBEN 05:00
PROVIDERS: Visit Provider Family Medicine
DX: E11.9 Type 2 diabetes mellitus without complications (principal); R14.1 Gas pain; K21.9 Gastro-esophageal reflux disease without esophagitis; M25.512 Pain in left shoulder; M25.522 Pain in left elbow; R26.2 Difficulty in walking, not elsewhere classified; M62.81 Muscle weakness (generalized); R48.8 Other symbolic dysfunctions
CPT/HCPCS: 36415; 80076; 80164

== ENCOUNTER → 2019-03-26 20:00 | Outpatient (REF) | payer MEDICARE, SELFPAY ==
[2019-03-27 08:03] LABS: Color, Urine Yellow (Yellow); Glucose, Dipstick Normal (Normal); Ketone-Dipstick Negative (Negative); Leukocyte Esterase-Dipstick 500 /ul (Negative); Nitrite-Dipstick Negative (Negative); Occult Blood-Urine 25 /ul (Negative); Protein-Dipstick 30 mg/dl (Negative); Specific Gravity, Urine 1.015 (1.002-1.030); Urine Bilirubin Dipstick Negative (Negative); Urine Clarity Cloudy (Clear); Urine Urobilinogen Normal (Normal)
== END ==
LOC: OLS.WHLBEN 20:00
PROVIDERS: Visit Provider Family Medicine
DX: R27.8 Other lack of coordination (principal); R14.1 Gas pain; K21.9 Gastro-esophageal reflux disease without esophagitis; R26.2 Difficulty in walking, not elsewhere classified; M62.81 Muscle weakness (generalized); Z47.1 Aftercare following joint replacement surgery
CPT/HCPCS: 81002

== ENCOUNTER → 2019-03-31 05:10 | Outpatient (REF) | payer MEDICARE, SELFPAY | LOC: OLS.WHLBEN 05:10 | PROVIDERS: Visit Provider Family Medicine | DX: R27.8 Other lack of coordination (principal); R48.8 Other symbolic dysfunctions; R14.1 Gas pain; K21.9 Gastro-esophageal reflux disease without esophagitis; R26.2 Difficulty in walking, not elsewhere classified; M62.81 Muscle weakness (generalized) | CPT/HCPCS: 87086; 87088 ==

== ENCOUNTER → 2019-05-22 05:00 | Outpatient (REF) | payer MEDICARE, SELFPAY ==
[2019-05-22 08:17] LABS: Absolute Lymphocyte Count 2.96 X10^3/uL (0.83-4.51); Absolute Neutrophil Count 5.8 X10^3/uL (2.0-7.7); Basophil# 0.06 X10^3/uL; Basophil% 0.6 % (0-1); Eosinophil# 0.11 X10^3/uL; Eosinophils% 1.1 % (0-5); Hemoglobin 12.5 g/dL (12.0-15.0); Lymphocyte # 2.96 X10^3/ul (4.0); Lymphocyte % 30.7 % (19-41); Mean Corp Hgb Conc 32.9 g/dL (32-36); Mean Corpuscular Hgb 30.6 pg (27.0-32.0); Mean Corpuscular Volume 93.1 fL (81-99); Mean Platelet Vol. 10.4 fl (6.2-12.0); Monocyte# 0.69 X10^3/uL; Monocyte% 7.2 % (0-10); NRBC Flagged by Analyzer 0 % (0-5); Neutrophil # 5.75 X10^3/uL (2.7-7.7); Neutrophil % 59.7 % (47-70); Platelet Count 285 K/mm3 (150-450); RBC Distribution Width CV 14.2 % (11.6-14.6); RBC Distribution Width SD 48.5 fl (35.1-43.9); Red Blood Count 4.08 M/mm3 (4.2-5.4); White Blood Count 9.6 K/mm3 (4.4-11.0)
[2019-05-22 08:30] LABS: Valproic Acid (Depakene) Level 64 ug/mL (50-100)
[2019-05-22 08:35] LABS: AST(SGOT) 9 U/L (15-37); Alanine Aminotransfer ALT/SGPT 17 U/L (13-56); Albumin, Serum 3.3 g/dL (3.2-5.0); Alkaline Phosphatase 70 U/L (45-117); Anion Gap 13 (5-15); BUN 16 mg/dL (7-18); BUN/Creat Ratio 23.7 RATIO (10-20); Bilirubin, Direct 0.05 mg/dL (0.00-0.30); Calcium,Total 8.5 mg/dL (8.5-10.1); Chloride 98 mmol/L (98-107); Cholesterol 135 mg/dL (200); Creatinine, Serum 0.68 mg/dL (0.55-1.02); EST Glomerular Filtration Rate 92 mL/min (>60); Est Glom Filt Rate - Afr Amer 112 mL/min (>60); Globulin 3.7 g/dL (2.2-4.2); Glucose 122 mg/dL (74-106); High Density Lipoprotein 42 mg/dL; Potassium 4.1 mmol/L (3.5-5.1); Sodium Level 135 mmol/L (136-145); Triglycerides 194 mg/dL; Very Low Density Lipoprotein 39 mg/dL (5-40)
[2019-05-22 09:27] LABS: Hemoglobin A1c 7.6 % (4.2-6.3)
[2019-05-22 10:27] LABS: Vitamin D,25 Hydroxy 32.4 ng/mL (29.95-100.01)
== END ==
LOC: OLS.WHLBEN 05:00
PROVIDERS: Visit Provider Family Medicine
DX: E11.9 Type 2 diabetes mellitus without complications (principal); R14.1 Gas pain; K21.9 Gastro-esophageal reflux disease without esophagitis; M25.512 Pain in left shoulder; M25.522 Pain in left elbow; R26.2 Difficulty in walking, not elsewhere classified; M62.81 Muscle weakness (generalized); R48.8 Other symbolic dysfunctions; Z79.899 Other long term (current) drug therapy; I10 Essential (primary) hypertension; E78.5 Hyperlipidemia, unspecified; E55.9 Vitamin D deficiency, unspecified
CPT/HCPCS: 36415; 80048; 80061; 80076; 80164; 82306; 83036; 85025

== ENCOUNTER → 2019-07-17 17:15 | Outpatient (REF) | payer MEDICARE, SELFPAY | LOC: OLS.WHLEAS 17:15 | PROVIDERS: Family Provider Family Medicine; PCP Family Medicine; Visit Provider Family Medicine | DX: R30.0 Dysuria (principal); R48.8 Other symbolic dysfunctions; R50.9 Fever, unspecified; R52 Pain, unspecified; R62.50 Unspecified lack of expected normal physiological development in childhood; R05 Cough; R09.81 Nasal congestion; R11.0 Nausea; R14.1 Gas pain | CPT/HCPCS: 87086; 87088 ==

== ENCOUNTER → 2019-08-21 05:00 | Outpatient (REF) | payer MEDICARE, MEDICAID, SELFPAY ==
[2019-08-21 08:25] LABS: Valproic Acid (Depakene) Level 46 ug/mL (50-100)
[2019-08-21 08:32] LABS: AST(SGOT) 18 U/L (15-37); Alanine Aminotransfer ALT/SGPT 22 U/L (13-56); Albumin, Serum 2.4 g/dL (3.2-5.0); Alkaline Phosphatase 55 U/L (45-117); Bilirubin, Direct < 0.05 mg/dL (0.00-0.30); Globulin 3.7 g/dL (2.2-4.2); Protein, Total 6.1 g/dL (6.4-8.2); Total Bilirubin < 0.10 mg/dL (0.20-1.00)
== END ==
LOC: OLS.WHLEAS 05:00
PROVIDERS: PCP Family Medicine; Visit Provider Family Medicine
DX: F32.9 Major depressive disorder, single episode, unspecified (principal); E78.5 Hyperlipidemia, unspecified; F01.50 Vascular dementia, unspecified severity, without behavioral disturbance, psychotic disturbance, mood disturbance, and anxiety; R62.50 Unspecified lack of expected normal physiological development in childhood; R13.12 Dysphagia, oropharyngeal phase; I10 Essential (primary) hypertension
CPT/HCPCS: 36415; 80076; 80164

== ENCOUNTER → 2019-11-20 05:30 | Outpatient (REF) | payer MEDICARE, SELFPAY ==
[2019-11-20 09:03] LABS: Absolute Lymphocyte Count 2.86 X10^3/uL (0.83-4.51); Basophil# 0.06 X10^3/uL; Basophil% 0.6 % (0-1); Eosinophil# 0.13 X10^3/uL; Eosinophils% 1.3 % (0-5); Hematocrit 37.6 % (37-47); Lymphocyte # 2.86 X10^3/ul (4.0); Lymphocyte % 29.4 % (19-41); Mean Corp Hgb Conc 31.9 g/dL (32-36); Mean Corpuscular Hgb 32.1 pg (27.0-32.0); Mean Corpuscular Volume 100.5 fL (81-99); Mean Platelet Vol. 11.2 fl (6.2-12.0); Monocyte# 0.56 X10^3/uL; Monocyte% 5.8 % (0-10); NRBC Flagged by Analyzer 0 % (0-5); Neutrophil # 6.01 X10^3/uL (2.7-7.7); Neutrophil % 61.9 % (47-70); Platelet Count 246 K/mm3 (150-450); RBC Distribution Width CV 13.8 % (11.6-14.6); RBC Distribution Width SD 50.5 fl (35.1-43.9); Red Blood Count 3.74 M/mm3 (4.2-5.4); White Blood Count 9.7 K/mm3 (4.4-11.0)
[2019-11-20 09:21] LABS: AST(SGOT) 24 U/L (15-37); Alanine Aminotransfer ALT/SGPT 28 U/L (13-56); Alkaline Phosphatase 75 U/L (45-117); Anion Gap 10 (5-15); BUN 12 mg/dL (7-18); BUN/Creat Ratio 17.8 RATIO (10-20); Bilirubin, Direct 0.06 mg/dL (0.00-0.30); Calcium,Total 8.4 mg/dL (8.5-10.1); Chloride 104 mmol/L (98-107); Cholesterol 142 mg/dL (200); Creatinine, Serum 0.67 mg/dL (0.55-1.02); EST Glomerular Filtration Rate 93 mL/min (>60); Est Glom Filt Rate - Afr Amer 112 mL/min (>60); Globulin 3.7 g/dL (2.2-4.2); Glucose 197 mg/dL (74-106); High Density Lipoprotein 33 mg/dL; Protein, Total 6.7 g/dL (6.4-8.2); Sodium Level 139 mmol/L (136-145); Triglycerides 256 mg/dL; Very Low Density Lipoprotein 51 mg/dL (5-40)
[2019-11-20 09:25] LABS: Hemoglobin A1c 9.1 % (4.2-6.3)
[2019-11-20 09:27] LABS: Vitamin D,25 Hydroxy 43.2 ng/mL
[2019-11-20 09:28] LABS: Valproic Acid (Depakene) Level 41 ug/mL (50-100)
== END ==
LOC: OLS.WHLEAS 05:30
PROVIDERS: PCP Family Medicine; Visit Provider Family Medicine
DX: F32.9 Major depressive disorder, single episode, unspecified (principal); F01.50 Vascular dementia, unspecified severity, without behavioral disturbance, psychotic disturbance, mood disturbance, and anxiety; K21.9 Gastro-esophageal reflux disease without esophagitis; K59.00 Constipation, unspecified; M81.0 Age-related osteoporosis without current pathological fracture; E78.5 Hyperlipidemia, unspecified; Z79.899 Other long term (current) drug therapy
CPT/HCPCS: 36415; 80048; 80061; 80076; 80164; 82306; 83036; 85025

== ENCOUNTER → 2020-02-19 05:00 | Outpatient (REF) | payer MEDICARE, SELFPAY ==
[2020-02-19 07:46] LABS: AST(SGOT) 40 U/L (15-37); Alanine Aminotransfer ALT/SGPT 37 U/L (13-56); Albumin, Serum 2.7 g/dL (3.2-5.0); Alkaline Phosphatase 73 U/L (45-117); Bilirubin, Direct 0.08 mg/dL (0.00-0.30); Globulin 3.7 g/dL (2.2-4.2); Protein, Total 6.4 g/dL (6.4-8.2); Valproic Acid (Depakene) Level 56 ug/mL (50-100)
== END ==
LOC: OLS.WHLEAS 05:00
PROVIDERS: PCP Family Medicine; Referring Provider Family Medicine; Visit Provider Family Medicine
DX: E78.5 Hyperlipidemia, unspecified (principal); F01.50 Vascular dementia, unspecified severity, without behavioral disturbance, psychotic disturbance, mood disturbance, and anxiety; F32.9 Major depressive disorder, single episode, unspecified; K21.9 Gastro-esophageal reflux disease without esophagitis; K59.00 Constipation, unspecified; M81.0 Age-related osteoporosis without current pathological fracture
CPT/HCPCS: 36415; 80076; 80164

== ENCOUNTER → 2020-05-20 05:00 | Outpatient (REF) | payer MEDICARE, SELFPAY ==
[2020-05-20 08:22] LABS: Absolute Lymphocyte Count 2.97 X10^3/uL (0.83-4.51); Absolute Neutrophil Count 5.9 X10^3/uL (2.0-7.7); Basophil# 0.08 X10^3/uL; Basophil% 0.8 % (0-1); Eosinophil# 0.12 X10^3/uL; Eosinophils% 1.2 % (0-5); Hematocrit 37.5 % (37-47); Hemoglobin 11.5 g/dL (12.0-15.0); Lymphocyte # 2.97 X10^3/ul (4.0); Lymphocyte % 30.5 % (19-41); Mean Corp Hgb Conc 30.7 g/dL (32-36); Mean Corpuscular Hgb 31.5 pg (27.0-32.0); Mean Corpuscular Volume 102.7 fL (81-99); Mean Platelet Vol. 10.8 fl (6.2-12.0); Monocyte# 0.61 X10^3/uL; Monocyte% 6.3 % (0-10); NRBC Flagged by Analyzer 0 % (0-5); Neutrophil # 5.88 X10^3/uL (2.7-7.7); Neutrophil % 60.3 % (47-70); Platelet Count 336 K/mm3 (150-450); RBC Distribution Width CV 14.6 % (11.6-14.6); RBC Distribution Width SD 54.3 fl (35.1-43.9); Red Blood Count 3.65 M/mm3 (4.2-5.4); White Blood Count 9.8 K/mm3 (4.4-11.0)
[2020-05-20 08:45] LABS: Hemoglobin A1c 8.7 % (3.8-5.6)
[2020-05-20 08:53] LABS: Valproic Acid (Depakene) Level 65 ug/mL (50-100)
[2020-05-20 08:56] LABS: AST(SGOT) 32 U/L (15-37); Alanine Aminotransfer ALT/SGPT 24 U/L (13-56); Albumin, Serum 2.8 g/dL (3.2-5.0); Alkaline Phosphatase 87 U/L (45-117); Anion Gap 7 (5-15); BUN 14 mg/dL (7-18); BUN/Creat Ratio 23.4 RATIO (10-20); Bilirubin, Direct < 0.05 mg/dL (0.00-0.30); Calcium,Total 9.2 mg/dL (8.5-10.1); Chloride 100 mmol/L (98-107); Cholesterol 147 mg/dL (200); EST Glomerular Filtration Rate 106 mL/min (>60); Est Glom Filt Rate - Afr Amer 128 mL/min (>60); Globulin 4.3 g/dL (2.2-4.2); Glucose 183 mg/dL (74-106); High Density Lipoprotein 42 mg/dL; Potassium 4.5 mmol/L (3.5-5.1); Protein, Total 7.1 g/dL (6.4-8.2); Sodium Level 137 mmol/L (136-145); Triglycerides 255 mg/dL; Very Low Density Lipoprotein 51 mg/dL (5-40)
== END ==
LOC: OLS.WHLEAS 05:00
PROVIDERS: PCP Family Medicine; Referring Provider Family Medicine; Visit Provider Family Medicine
DX: E78.5 Hyperlipidemia, unspecified (principal); F01.50 Vascular dementia, unspecified severity, without behavioral disturbance, psychotic disturbance, mood disturbance, and anxiety; F32.9 Major depressive disorder, single episode, unspecified; K21.9 Gastro-esophageal reflux disease without esophagitis; K59.00 Constipation, unspecified; M81.0 Age-related osteoporosis without current pathological fracture; E11.9 Type 2 diabetes mellitus without complications; Z79.899 Other long term (current) drug therapy
CPT/HCPCS: 36415; 80048; 80061; 80076; 80164; 82306; 83036; 85025

== ENCOUNTER 2020-06-25 23:57 | Inpatient (IN) | payer MEDICARE, MEDICAID, SELFPAY ==
[2020-06-25 23:58] VITALS: BP 143/66; PULSE 137; RESP 35; TEMP 39.6; O2SAT 89; BMI 27.4
[2020-06-26] VITALS (36 sets, daily range): BP systolic 108–159; BP diastolic 63–90; PULSE 96–132; RESP 22–34; TEMP 3.4–39.7; O2SAT 32–97; BMI 21.6
--- NOTE | 2020-06-26 00:03 | EKG12_ITS ---
Test Reason : SOB Blood Pressure : / mmHG Vent. Rate : 125 BPM Atrial Rate : 125 BPM P-R Int : 120 ms QRS Dur : 064 ms QT Int : 280 ms P-R-T Axes : 062 -01 100 degrees QTc Int : 404 ms Sinus tachycardia Nonspecific ST and T wave abnormality Abnormal ECG Confirmed by BERRY MONTENEGRO, JASON ([id number]), video editor JHONATAN REARDON ([id number]) on 06/30/2020 9:25:42 AM Referred By: RADHA Confirmed By:JASON SMART MD
[2020-06-26] MEDS: 0.9% Normal Saline 1,000 ML 999 ML IV (00:13)
[2020-06-26] MEDS: Acetaminophen 650 MG Suppository RECTAL (00:17)
[2020-06-26 00:21] LABS: Hematocrit 38.1 % (37-47); Hemoglobin 11.1 g/dL (12.0-15.0); Mean Corp Hgb Conc 29.1 g/dL (32-36); Mean Corpuscular Hgb 30.7 pg (27.0-32.0); Mean Corpuscular Volume 105.2 fL (81-99); Mean Platelet Vol. 9.7 fl (6.2-12.0); POSITIVE MORPHOLOGY YES; Platelet Count 550 K/mm3 (150-450); RBC Distribution Width CV 15.7 % (11.6-14.6); RBC Distribution Width SD 60.7 fl (35.1-43.9); Red Blood Count 3.62 M/mm3 (4.2-5.4); White Blood Count 15.6 K/mm3 (4.4-11.0)
[2020-06-26 00:27] LABS: Differential Indicated MANUAL DIFF; International Normalized Ratio 1.2; Prothrombin Time (Protime)PT. 15.1 SECONDS (11.7-14.9)
[2020-06-26 00:28] LABS: Partial Thromboplast Time 33.8 Seconds (24.1-36.2)
[2020-06-26 00:36] LABS: Mucous, Urine 0 SEEN /hpf (<or=2+); Red Blood Cells-Urine 0 SEEN /hpf (0-5)
[2020-06-26 00:37] LABS: Color, Urine Yellow (Yellow); Glucose, Dipstick 100 mg/dl (Normal); Ketone-Dipstick 5 mg/dl (Negative); Leukocyte Esterase-Dipstick 500 /ul (Negative); Nitrite-Dipstick Negative (Negative); Occult Blood-Urine 10 /ul (Negative); Protein-Dipstick 30 mg/dl (Negative); Specific Gravity, Urine 1.025 (1.002-1.030); Urine Bilirubin Dipstick Negative (Negative); Urine Clarity Sl. Cloudy (Clear); Urine Urobilinogen Normal (Normal)
[2020-06-26 00:37] LABS: ALB/GLOB Ratio 0.4 RATIO (0.9-2.4); AST(SGOT) 61 U/L (15-37); Alanine Aminotransfer ALT/SGPT 42 U/L (13-56); Albumin, Serum 2.3 g/dL (3.2-5.0); Alkaline Phosphatase 70 U/L (45-117); Anion Gap 7 (5-15); BUN 46 mg/dL (7-18); BUN/Creat Ratio 35.1 RATIO (10-20); Calcium,Total 9.1 mg/dL (8.5-10.1); Chloride 115 mmol/L (98-107); Creatinine, Serum 1.31 mg/dL (0.55-1.02); EST Glomerular Filtration Rate 43 mL/min (>60); Est Glom Filt Rate - Afr Amer 52 mL/min (>60); Estimated Creatinine Clearance 29.52 ml/min; Globulin 5.3 g/dL (2.2-4.2); Glucose 330 mg/dL (74-106); Potassium 4.1 mmol/L (3.5-5.1); Protein, Total 7.6 g/dL (6.4-8.2); Sodium Level 152 mmol/L (136-145)
[2020-06-26 00:39] LABS: Lactic Acid 1.8 mmol/L (0.4-1.9)
[2020-06-26 00:50] LABS: Bacteria 3+ /hpf (None Seen); Squamous Epithelial Cells - UA 0-5 SEEN /hpf (5-10); White Blood Cells 10-25 SEEN /hpf (0-5)
[2020-06-26 00:56] LABS: Total Cells Counted 100 (MANUAL DIFF)
--- NOTE | 2020-06-26 01:00 | RAD_ITS ---
STUDY: X-RAY CHEST REASON FOR EXAM: Female, 70 years old. patient covid positive from [place] [employer] [facility]. patient increased shortness of breath and oxygen need. patient minimally responsive TECHNIQUE: Single AP portable view of the chest. COMPARISON: None. FINDINGS: There is compressive atelectasis in the left lung base. Ill-defined subpleural groundglass opacities are seen more prominent in the lung bases , may represent atypical pneumonia or viral pneumonia (COVID-19 ?). There is a small left pleural effusion. There is moderate cardiac enlargement. Normal mediastinum and mariely. Normal visualized pulmonary arteries. Normal visualized aortic arch and descending thoracic aorta. Normal visualized thoracic spine. There is degenerative osteoarthritis of the bilateral shoulders. There is no demonstrated abnormality of the visualized soft tissue structures of the upper abdomen. RAD/Chest 1 View (Portable) IMPRESSION: There is compressive atelectasis in the left lung base. Ill-defined subpleural groundglass opacities are seen more prominent in the lung bases , may represent atypical pneumonia or viral pneumonia (COVID-19 ?). There is a small left pleural effusion. Electronically Signed: Naa Collins, at 1:31 EST Tel , Service support ,
[2020-06-26 01:01] LABS: Lymphocyte 24 % (19-41); Metamyelocyte 5 % (0-1); Monocyte 4 % (0-10); Neutrophil-Band 15 % (0-5); Neutrophil-Segmented 52 % (47-70)
[2020-06-26 01:01] LABS: Base Excess 1 mmol/L (-2 to +2); Bicarbonate 26.4 mmol/L (22-26); Blood Gas Specimen Type ART; FI02 90; O2 Delivery Device HFNC; PO2 85 mmHG (75-100); SITE R Brach; SO2 96 % (95-99); Total Carbon Dioxide 28 mmol/L; pH 7.39 (7.35-7.45)
[2020-06-26 01:03] LABS: Absolute Lymphocyte Count 3.73 X10^3/uL (0.83-4.51); Absolute Neutrophil Count 10.4 X10^3/uL (2.0-7.7); Lymphocyte # 3.73 X10^3/ul (4.0); Neutrophil # 10.43 X10^3/uL (2.7-7.7)
[2020-06-26 01:04] LABS: Anisocytosis 1+; Macrocytosis 1+; Platelet Estimate SLT INC (ADEQ)
--- NOTE | 2020-06-26 01:05 | CPS ---
PATIENT PLACED ON HIGH FLOW NC PER DR. MORENO.
--- NOTE | 2020-06-26 01:28 | ED.RN ---
[facility] WOULD LIKE UPDATE WITH PATIENT RESULTS PHONE # [phone]
[2020-06-26 02:21] LABS: Probe Check PASS; Specimen Processing Control PASS
[2020-06-26] MEDS: dexAMETHasone 4 MG/ML Vial 8 MG IV (02:23)
--- NOTE | 2020-06-26 02:35 | ED.DCSUM_ITS ---
- ER Visit Summary Date of Service: 06/26/20 Chief Complaint: Fever, altered level of consciousness History of Present Illness: The patient is a 70 F [facility] with fever and shortness of breath. Patient was positive for Covid at the SNF. Apparently she was not answering questions and she is alert to pain. I did speak with the daughter states that this is near her baseline due to her history of a mental developmental delay. She was 80% on 10 L at the prison and they switched her to a nonrebreather in route. Review of systems unable to be obtained from the patient as she does not answer questions. She had a chest x- ray at the prison which apparently did not read any acute on normalities. Urinalysis there was also unremarkable. Physical Examination: Vital signs reviewed. Temperature is 1-3.2. Heart rate 137, respiratory rate 35. She was 88% on 15 L. Well-developed female at her baseline. She has dry mucous membranes. Her pupils are equal. Heart is tachycardic and regular rhythm without murmurs. Lungs have diminished sounds throughout. Abdomen soft and nondistended. Her extremities have no edema. She is lethargic but is responsive to pain. She is maintaining her airway. She has diffuse overall weakness. Test Results: EKG is sinus tachycardia with nonspecific changes. White blood cell count 15.6, sodium 152, creatinine 1.31, urinalysis has 10-25 white blood cells. Her lactate is 1.8. ABG shows 7.3 86/44/84/26. Her rapid Covid antigen was negative, likely due to the longevity of her symptoms. Her PCR Covid did come back positive. 1 view chest x-ray interpreted by radiology and myself as having bilateral groundglass opacities consistent with Covid. Emergency Department Course and Treatment: Patient's Covid is likely causing her sepsis vital signs. Patient was given IV fluids and Tylenol. I will give her some Rocephin for the urinary tract infection. I did give her some Decadron. I had a discussion with the family. She is documented as a DNR CCA. The family would like to discuss with themselves whether the patient would want to be intubated. Right now she is on Airvo which is bring her oxygen saturation to 93 to 94%. She is tolerating this well. I do not feel she needs any BiPAP or intubation at this time. I discussed with hospitalist who will admit the patient. Treatment Plan: [] Disposition: Admit Impression: Acute respiratory failure, COVID-19, UTI, sepsis This note was generated with [employer] dictation software. It may contain incorrect words, spelling, and punctuation that were not noted in review of the chart prior to signing ED Disposition - Plan for ED Patient: Referrals: Magdy Mcbride MD [Primary Care Provider] -
--- NOTE | 2020-06-26 02:59 | PCM.HP.STD ---
Problem List (1) SARS (severe acute respiratory syndrome) Status: Acute (2) Sepsis Status: Acute (3) Diabetes mellitus Status: Chronic (4) Enteritis Status: Chronic (5) Hyperlipemia Status: Chronic (6) Mild cognitive impairment Status: Chronic (7) UTI (lower urinary tract infection) Status: Chronic History of Present Illness Date of Admission: 06/26/20 Chief Complaint: Fever The patient is a 70 year old F with a developmental delay and dementia who lives [place] a [place] [facility] presenting with a fever. As a part of weekly [place] test [place] [facility] [place] patient was found to be Covid positive on June 15, 2020. She began to develop a low-grade fever around June 19, 2020. Her fever kept worsening. Although her fever was initially controlled it got a point where even with Tylenol and ibuprofen her fever continued to be uncontrolled. Patient became lethargic and had a poor appetite. She was short of breath. She was started on dexamethasone and dextrose infusion at the [place] [facility] [place]. En-route to the hospital patient was placed on nonrebreather mask. And with the nonrebreather mask her oxygen saturation was 88 to 89%. Of notes over the years patient has declined mentally and physically. Although she has mental retardation she was able to take care of herself many years ago. She was at an assisted living facility and was receiving some help including help with her medications. However with time she has been needing more help to the point that she is a total assist including feeding. Past Medical History Past Medical History (Chronic Problems): Chronic Problems Mild cognitive impairment (Chronic) Hyperlipemia (Chronic) Enteritis (Chronic) Diabetes mellitus (Chronic) UTI (lower urinary tract infection) (Chronic) Allergies Penicillins Allergy (Verified 02/23/14 10:28) Unknown Sulfa (Sulfonamide Antibiotics) Allergy (Verified 02/23/14 10:28) Unknown Home Medications: Ambulatory Orders Medication Instructions Recorded Alendronate Sodium [Fosamax] 70 mg PO Q7D@0700 02/23/14 Atorvastatin Calcium [Lipitor] 40 mg PO QHS 02/23/14 Calcium Carbonate [Tums] 500 mg PO Q4H PRN PRN 02/23/14 Calcium Carbonate/Vitamin D3 1 each PO DAILY 02/23/14 [Calcium 600-Vit D3 400 Tablet] Ergocalciferol [Vitamin D] 50,000 unit PO Q7D 02/23/14 Ibuprofen [Motrin] 200 mg PO Q6H PRN PRN 02/23/14 Lisinopril [Zestril] 2.5 mg PO DAILY 02/23/14 Multivit-Min/FA/Lycopene/Lut 1 each PO DAILY 02/23/14 [Centrum Silver Tablet] SimETHICONE [Mylicon] 80 mg PO 4X/DAY PRN PRN 02/23/14 Venlafaxine HCl [Effexor] 75 mg PO BID 02/23/14 Aspirin [Aspirin, Baby] 81 mg PO DAILY@0800 06/26/20 Divalproex Sodium 375 mg PO DAILY 06/26/20 Divalproex Sodium 500 mg PO DAILY 06/26/20 Dulaglutide [Trulicity] 0.5 ml SQ QWEEK 06/26/20 Insulin Aspart [Novolog Flexpen] 100 units SQ BID 06/26/20 Memantine HCl 10 mg PO DAILY 06/26/20 Rivastigmine 9.5mg Patch [Exelon 9.5 mg TOPICAL DAILY 06/26/20 9.5MG/24HR PATCH] Sertraline HCl [Zoloft] 100 mg PO DAILY 06/26/20 Sitagliptin Phosphate [Januvia] 100 mg PO DAILY 06/26/20 Zinc Sulfate 220 mg PO DAILY 06/26/20 dexAMETHasone [Dexamethasone] 2 mg PO DAILY 06/26/20 glipiZIDE [Glucotrol] 10 mg PO DAILY@0730 06/26/20 Surgical History: cholecystectomy Psychiatric History: No pertinent psych hx 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 Information was obtained from POA and is in hpi. VTE Information - Inpt Only VTE Present on Admission: No VTE Mechan Device Prophylaxis: None VTE Pharm Prophylaxis ordered?: Yes Patient Problems: Active and Suspected Problems SARS (severe acute respiratory syndrome) (Acute) Sepsis (Acute) - Physical Exam Vitals/I&O's: Vital Signs Temp Pulse Resp BP Pulse Ox 103 F H 132 H 28 H 138/76 H 93 06/26/20 02:10 06/26/20 02:10 06/26/20 02:10 06/26/20 02:10 06/26/20 02:10 Oxygen Flow Rate (L/min) 15 Oxygen Delivery Method Airvo Weight: 63.7 kg Body Mass Index (BMI) 27.4 Finger Stick Blood Glucose 178 Intake and Output for Last 24 Hours 06/24/20 06/25/20 06/26/20 23:59 23:59 23:59 Intake Total 1000 / 1000 Balance 1000 / 1000 General: - - Obtunded HEENT: Atraumatic, Normocephalic Neck: No JVD, Negative Carotid Bruits, Trachea Midline Lungs: Clear to auscultation, Normal air movement, Tachypneic Cardiovascular: Normal S1, Normal S2, No murmurs, Tachycardic Abdomen: Bowel Sounds Present, Soft, Non Tender Extremities: No edema, Capillary Refill Less than 3 Seconds Skin: No rashes, No breakdown Musculoskeletal: No Muscle Wasting Neurological: Cranial nerves II-XII grossly intact Psych/Mental Status: Normal Affect, Appropriate Microbiology Past 72 Hours 06/26/20 00:25 Mucosa - Nose SARS-CoV-2 Antigen (Rapid) - Final Laboratory Results 06/26/20 00:05: WBC 15.6 H, RBC 3.62 L, Hgb 11.1 L, Hct 38.1, MCV 105.2 H, MCH 30.7, MCHC 29.1 L, RDW Std Deviation 60.7 H, RDW Coeff of Kim 15.7 H, Plt Count 550 H, MPV 9.7, Neut % (Auto) Not Reportable, Absolute Neuts (auto) 10.4 H, Absolute Lymphs (auto) 3.73, Total Counted 100, Neutrophils % (Manual) 52, Band Neutrophils % 15 H, Lymphocytes % (Manual) 24, Monocytes % (Manual) 4, Metamyelocytes % 5 H, Diff Path Review May nina, Platelet Estimate SLT INC, Anisocytosis 1+, Macrocytosis 1+ 06/26/20 00:05: PT 15.1 H, INR 1.2, APTT 33.8 06/26/20 00:05: Sodium 152 H, Potassium 4.1, Chloride 115 H, Carbon Dioxide 30.0, Anion Gap 7, BUN 46 H, Creatinine 1.31 H, Estim Creat Clear Calc 29.52, Est GFR (MDRD) Af Amer 52 L, Est GFR (MDRD) Non-Af 43 L, BUN/Creatinine Ratio 35.1 H, Glucose 330 H, Calcium 9.1, Total Bilirubin 0.20, AST 61 H, ALT 42, Alkaline Phosphatase 70, Total Protein 7.6, Albumin 2.3 L, Globulin 5.3 H, Albumin/Globulin Ratio 0.4 L 06/26/20 00:05: Lactic Acid 1.8 06/26/20 00:05: Serum Osmolality Pending 06/26/20 00:30: Urine Color Yellow, Urine Clarity Sl. Cloudy, Urine pH 5.0, Ur Specific [place] 1.025, Urine Protein 30 H, Urine Glucose (UA) 100 H, Urine Ketones 5 H, Urine Occult Blood 10 H, Urine Nitrite Negative, Urine Bilirubin Negative, Urine Urobilinogen Normal, Ur Leukocyte Esterase 500 H, Urine RBC 0 SEEN, Urine WBC 10-25 SEEN, Ur Squamous Epith Cells 0-5 SEEN, Urine Bacteria 3+, Urine Mucus 0 SEEN 06/26/20 00:53: Specimen Type ART, Sample Site R Brach, pH 7.39, Bicarbonate Actual 26.4 H, Total CO2 28, Base Excess 1, O2 Saturation 96, O2 % 90, ABG pCO2 44.0, ABG pO2 85, O2 Delivery Device HFNC 06/26/20 01:15: COVID-19 (SANDIP) Positive Assessment/Plan All Active Problems SARS (severe acute respiratory syndrome) (Acute) Sepsis (Acute) Sepsis secondary to SARS pneumonia; and acute cystitis COVID-19 was positive outpatient. Patient with high-grade fever; tachycardia; tachypnea; leukocytosis; and significant bandemia. No lymphopenia. Impression of chest x-ray by radiologist: Compressive atelectasis in the left lung base. Ill-defined subpleural groundglass opacities are seen more prominent in the lung bases, may represent atypical pneumonia or viral pneumonia (Covid?19?) There is a small left pleural effusion. Actual chest x-ray image was independently interpreted. I agree with radiologist interpretation. Patient is obtunded and cannot take p.o. at this time. Decadron IV ordered. Patient creatinine clearance is marginal to allow for remdesivir. If creatinine clearance improves consider remdesivir. With bandemia and other markers of sepsis while waiting for blood cultures will order vancomycin and cefepime. Of note patient has a kidney injury. Pharmacy to dose vancomycin. Tylenol for fever. Cooling blankets/ice pack if Tylenol is unable to control fever. Follow urine culture and blood culture. Consult pulmonary medicine. KIP/dehydration Creatinine presentation was 1.31. Review of old record shows a creatinine baseline from 0.60 to 0.75. BUN is 46. Sodium is 152. Chloride is 115. Discussed emergent department doctor to order serum osmolality. Serum osmolality returned 351. BUN over creatinine is 35.1. Received normal saline bolus at emergency department. Continue patient on normal saline 100 MLS per hour. Consider changing to half normal saline if patient is fully fluid resuscitated. Trend CMP. Diabetes mellitus with hyperglycemia. Patient noted to have severe elevated blood glucose. On home basal insulin and glipizide. Adjust basal insulin. Hold glipizide in the setting of n.p.o. status. Accu-Chek every 4 hours with correction scale insulin. Mood disorder Discussed with POA why patient is on valproic acid. POA. denied the patient has seizure. POA recalls that patient was started on valproic acid for mood disorder. Will check valproic acid level. Hold off valproic acid in the setting of n.p.o. and patient being obtunded. DVT prophylaxis Subcutaneous Lovenox. Patient's sister (Vijaya De Los Santos) who is the POA wants to be notified routinely on patient's care. Her phone number is [phone]. Vijaya De Los Santos discussed with ED doctor patient was a DNR CCA and further decisions will be made on intubation. Admitting physician called the POA who stated that after discussion with the rest of the family patient will be DNR CCA with no intubation. Different code types were discussed with POA. Okay with POA to continue patient on noninvasive positive pressure ventilation. Time to discuss CODE STATUS was 16 minutes. Inpatient E&M: 75815 Init Hosp L3 Procedures: 88585 Advncd Care Plan 30 Min
[2020-06-26 03:07] LABS: Osmolality, Serum 351 mOsm/KG (280-301)
[2020-06-26] MEDS: Ceftriaxone 1 GM/50 ML BAG IV (03:28)
--- NOTE | 2020-06-26 05:05 | PCS.PANDOC ---
PANDEMIC DOCUMENTATION INITIATED: Date: 06/26/2020 Time: 3224
--- NOTE | 2020-06-26 05:10 | NURSING ---
Pt unable to answer safety questions at this time.
--- NOTE | 2020-06-26 05:13 | NURSING ---
Ice packs placed to groin and underarms at this time per MD order. Rectal Tylenol given in ED. Pt on continuous core temp monitoring. Will continue to monitor.
[2020-06-26 05:36] LABS: Valproic Acid (Depakene) Level 62 ug/mL (50-100)
[2020-06-26] MEDS: 0.9% Normal Saline 1,000 ML 100 ML IV (05:43)
[2020-06-26] MEDS: Vancomycin IV 1,000 MG/200 ML BAG 200 MG IV (05:44)
[2020-06-26] MEDS: Insulin Lispro 100 UNIT/ML INSULN.PEN SC ×5 (05:49→22:05)
[2020-06-26 06:13] LABS: Absolute Lymphocyte Count 1.45 X10^3/uL (0.83-4.51); Absolute Neutrophil Count 11.7 X10^3/uL (2.0-7.7); Basophil# 0.01 X10^3/uL; Basophil% 0.1 % (0-1); Eosinophil# 0.04 X10^3/uL; Eosinophils% 0.3 % (0-5); Hematocrit 36.5 % (37-47); Hemoglobin 10.6 g/dL (12.0-15.0); Lymphocyte # 1.45 X10^3/ul (4.0); Lymphocyte % 10.1 % (19-41); Mean Corpuscular Volume 106.7 fL (81-99); Mean Platelet Vol. 10.1 fl (6.2-12.0); Monocyte# 0.62 X10^3/uL; Monocyte% 4.3 % (0-10); NRBC Flagged by Analyzer 0.1 % (0-5); Neutrophil % 81.1 % (47-70); POSITIVE MORPHOLOGY YES; Platelet Count 441 K/mm3 (150-450); RBC Distribution Width CV 15.8 % (11.6-14.6); RBC Distribution Width SD 62.4 fl (35.1-43.9); Red Blood Count 3.42 M/mm3 (4.2-5.4); White Blood Count 14.4 K/mm3 (4.4-11.0)
[2020-06-26 06:15] LABS: Differential Indicated SCAN CRITERIA MET
--- NOTE | 2020-06-26 06:19 | PCM.RX.CS ---
Consult Pharmacy has been consulted to manage selected antiobiotic: Vancomycin Type of Consult: New start Suspected Infection: Sepsis Prior Doses of Antibiotics Received/Current Regimen: Medications Vancomycin HCl (Vancomycin) 1,000 mg in 200 mls @ 200 mls/hr IV X1 ONE Stop: 06/26/20 06:59 Last Admin: 06/26/20 05:44 Dose: 200 mls/hr Documented by: Vancomycin HCl 750 mg/ Sodium (Chloride) 265 mls @ 250 mls/hr IV Q24H LYN to start 06/27/20 0600 Microbiology: Microbiology 06/26/20 00:25 Mucosa - Nose SARS-CoV-2 Antigen (Rapid) - Final Weight used for dosin.7 kg Estimated Creatinine Clearance: 29.52 Goal Trough: 15-20 mcg/mL Pharmacy Plan for Drug Dosing: Pharmacy Service will continue to monitor and adjust dosing as required. Follow-Up Labs: Trough Vancomycin - draw 30 minutes before 3rd dose Labs to be done on [date and time ordered]: 06/28/20 6104
[2020-06-26 06:34] LABS: Differential Comment SCANNED
[2020-06-26 06:56] LABS: ALB/GLOB Ratio 0.4 RATIO (0.9-2.4); AST(SGOT) 62 U/L (15-37); Alanine Aminotransfer ALT/SGPT 39 U/L (13-56); Albumin, Serum 2.1 g/dL (3.2-5.0); Alkaline Phosphatase 65 U/L (45-117); Anion Gap 6 (5-15); BUN 43 mg/dL (7-18); BUN/Creat Ratio 39.8 RATIO (10-20); Calcium,Total 8.4 mg/dL (8.5-10.1); Chloride 116 mmol/L (98-107); Creatinine, Serum 1.08 mg/dL (0.55-1.02); EST Glomerular Filtration Rate 54 mL/min (>60); Est Glom Filt Rate - Afr Amer 65 mL/min (>60); Estimated Creatinine Clearance 46.67 ml/min; Globulin 5.1 g/dL (2.2-4.2); Glucose 348 mg/dL (74-106); Protein, Total 7.2 g/dL (6.4-8.2); Sodium Level 148 mmol/L (136-145)
[2020-06-26] MEDS: 0.45% Normal Saline 1,000 ML 60 ML IV (07:59)
[2020-06-26 09:39] LABS: Procalcitonin 3.93 ng/mL (0.00-0.09)
[2020-06-26 09:51] LABS: Bedside Glucose 335 mg/dL (70-110)
[2020-06-26] MEDS: dexAMETHasone 10 MG/ML Vial 6 MG IV (10:29)
[2020-06-26] MEDS: Enoxaparin 30 MG/0.3 ML Syringe SC (10:31)
[2020-06-26] MEDS: Rivastigmine 9.5mg Patch 1 PATCH TD (10:32)
[2020-06-26 10:46] LABS: Bedside Glucose 308 mg/dL (70-110)
--- NOTE | 2020-06-26 12:14 | CON.PCM_ITS ---
Problem List (1) SARS (severe acute respiratory syndrome) Status: Acute (2) Mild cognitive impairment Status: Chronic (3) Hyperlipemia Status: Chronic (4) Diabetes mellitus Status: Chronic (5) UTI (lower urinary tract infection) Status: Chronic Reason for Consult Date of Consultation: 06/26/20 Reason for Consultation: Respiratory failure History of Present Illness: The patient is a 70 year old F with past medical history listed below, who presented from a [facility]dc secondary to fever and progressive shortness of breath. Patient had tested positive for COVID-19 at the outside facility and was not able to answer questions. Patient reportedly has mild developmental delay, but was requiring 80% on 10 L at the fdc, so was transferred for evaluation. Chest x-ray and urinalysis at the outside facility was relatively unremarkable per report. On presentation to the ER, patient was tachycardic at 137 bpm and 88% on 15 L. Patient had dry mucous membranes and lungs were diminished without wheezing. Laboratory work-up showed a leukocytosis of 15.6, sodium of 152 and creatinine of 131. Lactate was 1.8. Patient's rapid Covid test was negative and this was thought to be secondary to longevity of symptoms. PCR did come back positive. Groundglass opacities reported on chest x-ray when she was in the ER. Patient was given Tylenol, IV fluids and Rocephin. Patient did get Decadron. Patient reportedly was not open to BiPAP or intubation at this time. Airvo did improve saturations to 93 to 94%. Patient is unable to provide any additional history at this time. Patient will open her eyes to voice and states that she is short of breath and deny pain. Patient did wince with palpation of the left lower extremity. Past Medical History Past Medical History (Chronic Problems): Chronic Problems Mild cognitive impairment (Chronic) Hyperlipemia (Chronic) Enteritis (Chronic) Diabetes mellitus (Chronic) UTI (lower urinary tract infection) (Chronic) Allergies honey Allergy (Verified 06/26/20 08:01) PT UNABLE TO RESPOND-NEEDS F/U hydroxyzine [From Vistaril] Allergy (Verified 06/26/20 03:33) PT UNABLE TO RESPOND-NEEDS F/U metformin Allergy (Verified 06/26/20 03:33) PT UNABLE TO RESPOND-NEEDS F/U Penicillins Allergy (Verified 12/12/20 03:32) Unknown Sulfa (Sulfonamide Antibiotics) Allergy (Verified 06/26/20 03:32) Unknown Home Medications: Ambulatory Orders Medication Instructions Recorded Atorvastatin Calcium [Lipitor] 40 mg PO QHS 02/23/14 Calcium Carbonate/Vitamin D3 1 each PO DAILY 02/23/14 [Calcium 600-Vit D3 400 Tablet] Ergocalciferol [Vitamin D] 2,000 unit PO DAILY 02/23/14 Multivit-Min/FA/Lycopene/Lut 1 each PO DAILY 02/23/14 [Centrum Silver Tablet] Venlafaxine HCl [Effexor] 75 mg PO BID 02/23/14 Acetaminophen [Pain Relief] 650 mg PO Q4H PRN PRN 06/26/20 Acidophilus 1 cap PO DAILY 06/26/20 Aspirin [Aspirin, Baby] 81 mg PO DAILY@0800 06/26/20 Azithromycin 1 tab PO DAILY 06/26/20 Divalproex Sodium 375 mg PO DAILY 06/26/20 Divalproex Sodium 500 mg PO QHS 06/26/20 Dulaglutide [Trulicity] 0.5 ml SQ QWEEK 06/26/20 Insulin Aspart [Novolog Flexpen] units SQ .COMPLEX 06/26/20 Ketoconazole 1 applic TOPICAL BID PRN 06/26/20 Loperamide [Imodium] 2 mg PO PRN PRN 06/26/20 Memantine HCl 10 mg PO BID 06/26/20 Rivastigmine 9.5mg Patch [Exelon 9.5 mg TOPICAL DAILY 06/26/20 9.5MG/24HR PATCH] Sertraline HCl [Zoloft] 100 mg PO QHS 06/26/20 Sitagliptin Phosphate [Januvia] 100 mg PO DAILY 06/26/20 Zinc Sulfate 220 mg PO DAILY 06/26/20 Zofran 4 mg PO Q6H PRN 06/26/20 dexAMETHasone [Dexamethasone] 1 tab PO BID 06/26/20 glipiZIDE [Glucotrol] 10 mg PO DAILY@0730 06/26/20 Surgical History: cholecystectomy Psychiatric History: No pertinent psych hx 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 Chest x-ray shows either left lower lobe collapse versus pleural effusion. Patient does not have a history of echocardiogram or pulmonary function tests are available for review at this time. - Physical Exam Vitals/I&O's: Vital Signs Temp Pulse Resp BP Pulse Ox 38.5 C H 114 H 28 H 139/70 H 95 06/26/20 10:00 06/26/20 10:00 06/26/20 10:00 06/26/20 10:00 06/26/20 10:00 Oxygen Flow Rate (L/min) 60 Oxygen Delivery Method Airvo Weight: 61.689 kg Body Mass Index (BMI) 21.6 Finger Stick Blood Glucose 178 Intake and Output for Last 24 Hours 06/24/20 06/25/20 06/26/20 23:59 23:59 23:59 Intake Total 1591.67 / 1591.67 Output Total 650 / 650 Balance 941.67 / 941.67 General: - - RASS -1. Opens eyes to voice, but slow to vocalize. Resting comfortably on my arrival. HEENT: Atraumatic, PERRLA, EOMI, - - Microcephaly appreciated Oral: Moist Mucosa, No Gingival or Mucosal Lesions/ Ulcerations Neck: Supple, No JVD, No Nodes, Trachea Midline Lungs: No rhonchi, No wheeze, No rales, Diminished - Left base, - - Symmetric expansion. No dullness to percussion. Cardiovascular: Normal S1, Normal S2, No murmurs, No rub noted, No Gallop, Tachycardic Abdomen: Bowel Sounds Present, Soft, Non Tender, Non-Distended Extremities: No clubbing, No cyanosis, No edema, Capillary Refill Less than 3 Seconds Skin: No rashes, No breakdown Musculoskeletal: Tenderness - Palpation of the left lower extremity Lymphatic: No Cervical, Supraclavicular, or Inguinal Adenopathy Neurological: Cranial nerves II-XII grossly intact, Neuro grossly intact - Nonfocal exam, but not very interactive. Spontaneous movement of all extremities and sensation appears to be intact Psych/Mental Status: Flat Affect Microbiology Past 72 Hours 06/26/20 00:25 Mucosa - Nose SARS-CoV-2 Antigen (Rapid) - Final Laboratory Results 06/26/20 00:05: WBC 15.6 H, RBC 3.62 L, Hgb 11.1 L, Hct 38.1, MCV 105.2 H, MCH 30.7, MCHC 29.1 L, RDW Std Deviation 60.7 H, RDW Coeff of Kim 15.7 H, Plt Count 550 H, MPV 9.7, Neut % (Auto) Not Reportable, Absolute Neuts (auto) 10.4 H, Absolute Lymphs (auto) 3.73, Total Counted 100, Neutrophils % (Manual) 52, Band Neutrophils % 15 H, Lymphocytes % (Manual) 24, Monocytes % (Manual) 4, Metamyelocytes % 5 H, Diff Path Review November, Platelet Estimate SLT INC, Anisocytosis 1+, Macrocytosis 1+ 06/26/20 00:05: PT 15.1 H, INR 1.2, APTT 33.8 06/26/20 00:05: Sodium 152 H, Potassium 4.1, Chloride 115 H, Carbon Dioxide 30.0, Anion Gap 7, BUN 46 H, Creatinine 1.31 H, Estim Creat Clear Calc 29.52, Est GFR (MDRD) Af Amer 52 L, Est GFR (MDRD) Non-Af 43 L, BUN/Creatinine Ratio 35.1 H, Glucose 330 H, Calcium 9.1, Total Bilirubin 0.20, AST 61 H, ALT 42, Alkaline Phosphatase 70, Total Protein 7.6, Albumin 2.3 L, Globulin 5.3 H, Albumin/Globulin Ratio 0.4 L 06/26/20 00:05: Lactic Acid 1.8 06/26/20 00:05: Serum Osmolality 351 H 06/26/20 00:05: Procalcitonin 3.93 H 06/26/20 00:05: Valproic Acid 62 06/26/20 00:30: Urine Color Yellow, Urine Clarity Sl. Cloudy, Urine pH 5.0, Ur Specific [place] 1.025, Urine Protein 30 H, Urine Glucose (UA) 100 H, Urine Ketones 5 H, Urine Occult Blood 10 H, Urine Nitrite Negative, Urine Bilirubin Negative, Urine Urobilinogen Normal, Ur Leukocyte Esterase 500 H, Urine RBC 0 SE EN, Urine WBC 10-25 SEEN, Ur Squamous Epith Cells 0-5 SEEN, Urine Bacteria 3+, Urine Mucus 0 SEEN 06/26/20 00:53: Specimen Type ART, Sample Site R Brach, pH 7.39, Bicarbonate Actual 26.4 H, Total CO2 28, Base Excess 1, O2 Saturation 96, O2 % 90, ABG pCO2 44.0, ABG pO2 85, O2 Delivery Device HFNC 06/26/20 01:15: COVID-19 (SANDIP) Positive 06/26/20 05:10: WBC 14.4 H, RBC 3.42 L, Hgb 10.6 L, Hct 36.5 L, MCV 106.7 H, MCH 31.0, MCHC 29.0 L, RDW Std Deviation 62.4 H, RDW Coeff of Kim 15.8 H, Plt Count 441, MPV 10.1, Immature Gran % (Auto) 4.100 H, Neut % (Auto) 81.1 H, Lymph % (Auto) 10.1 L, [place] % (Auto) 4.3, Eos % (Auto) 0.3, Baso % (Auto) 0.1, Absolute Neuts (auto) 11.7 H, Absolute Lymphs (auto) 1.45, Nucleated RBC % 0.1, Differential Comment SCANNED 06/26/20 05:10: Sodium 148 H, Potassium 4.0, Chloride 116 H, Carbon Dioxide 26.0, Anion Gap 6, BUN 43 H, Creatinine 1.08 H, Estim Creat Clear Calc 46.67, Est GFR (MDRD) Af Amer 65, Est GFR (MDRD) Non-Af 54 L, BUN/Creatinine Ratio 39.8 H, Glucose 348 H, Calcium 8.4 L, Total Bilirubin 0.30, AST 62 H, ALT 39, Alkaline Phosphatase 65, Total Protein 7.2, Albumin 2.1 L, Globulin 5.1 H, Albumin/Globulin Ratio 0.4 L 06/26/20 05:38: POC Glucose 335 H 06/26/20 10:26: POC Glucose 308 H Current Medications Acetaminophen (Acetaminophen 650 Mg Suppository) 650 mg RECTAL Q4H PRN PRN PRN Reason: Pain Score 1-10/Temp > 100.7 F Dexamethasone Sodium Phosphate (Dexamethasone 10 Mg/Ml Vial) 6 mg IV DAILY LYN Last Admin: 06/26/20 10:29 Dose: 6 mg Documented by: Dextrose (Dextrose 50%-Water 25 Gm/50 Ml Disp.Syrin) 0 gm IV X1 PRN; Protocol PRN Reason: Hypoglycemia Enoxaparin Sodium (Enoxaparin 30 Mg/0.3 Ml Syringe) 30 mg SC DAILY [facility] Last Admin: 06/26/20 10:31 Dose: 30 mg Documented by: Glucagon (Glucagon 1 Mg/Ml Syringe) 1 mg IM .X1 PRN PRN Reason: Hypoglycemia Cefepime HCl 2 gm/ Sodium (Chloride) 100 mls @ 200 mls/hr IV Q12 LYN Last Infusion: 06/26/20 09:41 Dose: Infused Documented by: Vancomycin IV Pharmacy to Dose (1 ea/ Sodium Chloride) 500 mls @ 250 mls/hr IV X1 PRN; Protocol PRN Reason: Rx to Dose Vancomycin HCl 750 mg/ Sodium (Chloride) 265 mls @ 250 mls/hr IV Q24H LYN Sodium Chloride () 1,000 mls @ 60 mls/hr IV .[id number] LYN Last Infusion: 06/26/20 10:30 Dose: 0 mls/hr Documented by: Remdesivir 100 mg/ Sodium (Chloride) 250 mls @ 125 mls/hr IV DAILY [facility] Stop: 06/30/20 11:59 Insulin Glargine (Insulin Glargine 100 Units/Ml Pen) 30 units SC BID [facility] Last Admin: 06/26/20 05:50 Dose: 30 u Documented by: Insulin Human Lispro (Insulin Lispro 100 Unit/Ml Insuln.Pen) 0 unit SC Q4 [facility]; Protocol Last Admin: 06/26/20 10:31 Dose: 6 u Documented by: Ondansetron HCl (Ondansetron 4 Mg/2 Ml Vial) 4 mg IV Q8H PRN PRN PRN Reason: NAUSEA/VOMITING Rivastigmine (Rivastigmine 9.5mg Patch) 1 patch TD DAILY [facility] Last Admin: 06/26/20 10:32 Dose: 1 patch Documented by: Sodium Chloride (0.9% Saline Lock 10 Ml Syringe) 10 - 40 ml IV UD PRN PRN Reason: SALINE FLUSH Clinical Impression(s) from Imaging Studies Chest X-Ray 06/26/20 01:00 IMPRESSION: There is compressive atelectasis in the left lung base. Ill-defined subpleural groundglass opacities are seen more prominent in the lung bases , may represent atypical pneumonia or viral pneumonia (COVID-19 ?). There is a small left pleural effusion. Electronically Signed: Naa Collins, at 1:31 EST Tel , Service support , Assessment/Plan All Active Problems SARS (severe acute respiratory syndrome) (Acute) Sepsis (Acute) RECOMMENDATIONS: 1. Continue empiric antibiotics pending urine culture 2. Possible CTA tomorrow if acute kidney injury improves 3. Wean oxygen as tolerated 4. Continue Decadron. Possible Remdesivir in the future if kidney function improves IMPRESSIONS: 1. Acute hypoxic respiratory failure secondary to COVID-19 pneumonia Patient COVID-19 positive with significant hypoxia and supplemental oxygen requirements. Patient reportedly has had symptoms for quite some time, but given severity of illness and CODE STATUS, it is reasonable to proceed with Decadron and remdesivir. Chest x-ray shows a possible left pleural effusion, but PE would also be a concern. Would attempt to improve renal function for the next 24 hours to see if the CTA could be obtained to evaluate lung parenchyma and see if a thoracentesis could be helpful. Other possibility would include a mucous plug, but it is unclear if patient would tolerate vest therapy. Patient reportedly does not have a history of obstructive lung disease. Patient did have some pain of the left lower extremity on palpation, but no cord could be palpated. A CTA of the chest would offer multiple pieces of information to see if full anticoagulation would be indicated. 2. Severe sepsis Unclear if COVID-19 is the only infection. Patient does have cultures pending. Given severity of illness, reasonable to initiate on broad-spectrum antibiotics as patient does live in an extended care facility. Control fever to decrease metabolic demand given hypoxic respiratory failure. 3. Acute kidney injury Baseline creatinine appears to be approximately 0.7. Patient does have hypernatremia and hyperchloremia suggestive of prerenal etiology. Patient did receive normal saline. We will have to monitor closely as this could complicate respiratory failure. If kidney injury resolves over the next 24 hours, possibly discontinue IV fluids and obtain a CTA of the chest for better characterization of lung involvement. 4. Diabetes mellitus?uncontrolled/hyperglycemia/mood disorder/developmental delay/marginal history Complicates care, management, recovery and prognosis. Patient is on basal insulin at this time, but this will likely need to be increased given Decadron therapy. Patient appears to be tolerating current interventions. Could consider Haldol as an IV option until mental status improves. Inpatient E&M: 85756 Init Hosp L3
[2020-06-26 14:01] LABS: Bedside Glucose 262 mg/dL (70-110)
--- NOTE | 2020-06-26 15:15 | CASEMGMT ---
Addendum entered by Marysol Flanagan 06/26/20 15:50: As per pt's sister, pt's positive COVID test at [facility] was on 06/15/20. FRANKY Nagy Original Note: SW reviewed chart, pt is here from [facility]. SW faxed updates to [facility]. 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 She states she is pt's POA for healthcare(the POA form we have on file states brother Toribio is POA, but this form is from 1996). Vijaya states [facility] should have the papers stating she is POA on file. SW offered support to pt's sister. SW spoke w/Sophie at [facility], pt may need precert prior to returning, will need to let her know when pt is ready and then she will see if precert is needed. Also, she is checking on more current POA papers and will fax them over if they are available. SW will continue to follow for discharge back to [facility] when appropriate. FRANKY Nagy
[2020-06-26 18:21] LABS: Bedside Glucose 248 mg/dL (70-110)
[2020-06-26] MEDS: Menthol/Lanolin/Calamine/Znox 113 GM Tube 1 APPLIC TOPICAL (22:06)
[2020-06-26 22:30] LABS: Bedside Glucose 160 mg/dL (70-110)
[2020-06-27] VITALS (28 sets, daily range): BP systolic 113–140; BP diastolic 61–79; PULSE 84–118; RESP 19–35; TEMP 3.5–39.1; O2SAT 88–97
[2020-06-27] MEDS: Acetaminophen 650 MG Suppository RECTAL ×3 (02:11→12:48)
[2020-06-27] MEDS: 0.45% Normal Saline 1,000 ML 60 ML IV (02:16)
[2020-06-27 05:30] LABS: Bedside Glucose 113 mg/dL (70-110)
[2020-06-27 06:33] LABS: Absolute Lymphocyte Count 2.28 X10^3/uL (0.83-4.51); Absolute Neutrophil Count 11.6 X10^3/uL (2.0-7.7); Basophil# 0.14 X10^3/uL; Basophil% 0.9 % (0-1); Hematocrit 34.1 % (37-47); Lymphocyte # 2.28 X10^3/ul (4.0); Lymphocyte % 15.2 % (19-41); Mean Corp Hgb Conc 29.3 g/dL (32-36); Mean Corpuscular Hgb 30.6 pg (27.0-32.0); Mean Corpuscular Volume 104.3 fL (81-99); Mean Platelet Vol. 10.1 fl (6.2-12.0); Monocyte# 0.53 X10^3/uL; Monocyte% 3.5 % (0-10); NRBC Flagged by Analyzer 0.4 % (0-5); Neutrophil % 77.3 % (47-70); POSITIVE MORPHOLOGY YES; Platelet Count 406 K/mm3 (150-450); RBC Distribution Width CV 15.3 % (11.6-14.6); RBC Distribution Width SD 59.1 fl (35.1-43.9); Red Blood Count 3.27 M/mm3 (4.2-5.4)
[2020-06-27 06:41] LABS: Bedside Glucose 122 mg/dL (70-110)
[2020-06-27 06:46] LABS: Differential Indicated SCAN CRITERIA MET
[2020-06-27 07:01] LABS: Macrocytosis 2+; Platelet Estimate ADEQUATE (ADEQ)
[2020-06-27 07:41] LABS: ALB/GLOB Ratio 0.4 RATIO (0.9-2.4); AST(SGOT) 83 U/L (15-37); Alanine Aminotransfer ALT/SGPT 43 U/L (13-56); Albumin, Serum 1.9 g/dL (3.2-5.0); Alkaline Phosphatase 70 U/L (45-117); Anion Gap 6 (5-15); BUN 32 mg/dL (7-18); BUN/Creat Ratio 52.8 RATIO (10-20); Chloride 120 mmol/L (98-107); Creatinine, Serum 0.61 mg/dL (0.55-1.02); EST Glomerular Filtration Rate 104 mL/min (>60); Est Glom Filt Rate - Afr Amer 126 mL/min (>60); Estimated Creatinine Clearance 50.41 ml/min; Globulin 4.8 g/dL (2.2-4.2); Glucose 128 mg/dL (74-106); Potassium 3.3 mmol/L (3.5-5.1); Protein, Total 6.7 g/dL (6.4-8.2); Sodium Level 152 mmol/L (136-145)
--- NOTE | 2020-06-27 08:02 | PN_ITS ---
Patient Problems: Active and Suspected Problems SARS (severe acute respiratory syndrome) (Acute) Sepsis (Acute) Subjective: Chief complaint: Follow-up after admission for acute COVID-19 pneumonia, sepsis, acute hypoxic respiratory failure and acute kidney injury. Patient seen and examined. No acute events overnight. Today, patient is more alert, opening eyes spontaneously, talking incoherently. She has been having spikes of fever, tachycardia, blood pressure stable. She is on Airvo FiO2 of 90%. - Physical Exam Vitals/I&O's: Vital Signs Temp Pulse Resp BP Pulse Ox 102.2 F H 115 H 33 H 126/64 H 89 06/27/20 07:00 06/27/20 07:00 06/27/20 07:00 06/27/20 07:00 06/27/20 07:00 Oxygen Flow Rate (L/min) 60 Oxygen Delivery Method Airvo Weight: 136 lb 0.015 oz Body Mass Index (BMI) 21.6 Finger Stick Blood Glucose 178 Intake and Output for Last 24 Hours 06/25/20 06/26/20 06/27/20 23:59 23:59 23:59 Intake Total 2481.67 / 2481.67 725 / 725 Output Total 1150 / 1150 250 / 250 Balance 1331.67 / 1331.67 475 / 475 General: Alert, Cooperative, - - Moderately short of breath. HEENT: Atraumatic, PERRLA, EOMI, Normocephalic Oral: Moist Mucosa, No Gingival or Mucosal Lesions/ Ulcerations Neck: Supple, No JVD, Negative Carotid Bruits, Trachea Midline, Thyroid Normal Size and Texture Lungs: No rhonchi, No wheeze, No rales, Diminished, Short of Breath, - - Decreased breath sounds bilateral Cardiovascular: Regular rate, Regular Rhythm, Normal S1, Normal S2, PMI Normal, Tachycardic Abdomen: Bowel Sounds Present, Soft, Non Tender, Non-Distended, No Hepato- splenomegaly Extremities: No clubbing, No cyanosis, No edema Skin: No rashes, No breakdown Lymphatic: No Cervical, Supraclavicular, or Inguinal Adenopathy Neurological: Cranial nerves II-XII grossly intact, - - No obvious focal deficits, patient is not following commands appropriately. Psych/Mental Status: Flat Affect Microbiology Past 72 Hours 06/26/20 00:25 Mucosa - Nose SARS-CoV-2 Antigen (Rapid) - Final Laboratory Results 06/26/20 00:05: Procalcitonin 3.93 H 06/26/20 05:38: POC Glucose 335 H 06/26/20 10:26: POC Glucose 308 H 06/26/20 13:45: POC Glucose 262 H 06/26/20 17:41: POC Glucose 248 H 06/26/20 22:01: POC Glucose 160 H 06/27/20 02:10: POC Glucose 113 H 06/27/20 05:59: WBC 15.0 H, RBC 3.27 L, Hgb 10.0 L, Hct 34.1 L, MCV 104.3 H, MCH 30.6, MCHC 29.3 L, RDW Std Deviation 59.1 H, RDW Coeff of Kmi 15.3 H, Plt Count 406, MPV 10.1, Immature Gran % (Auto) 3.100 H, Neut % (Auto) 77.3 H, Lymph % (Auto) 15.2 L, [place] % (Auto) 3.5, Eos % (Auto) 0.0, Baso % (Auto) 0.9, Absolute Neuts (auto) 11.6 H, Absolute Lymphs (auto) 2.28, Nucleated RBC % 0.4, Platelet Estimate ADEQUATE, Macrocytosis 2+ 06/27/20 05:59: Sodium 152 H, Potassium 3.3 L, Chloride 120 H, Carbon Dioxide 26.0, Anion Gap 6, BUN 32 H, Creatinine 0.61, Estim Creat Clear Calc 50.41, Est GFR (MDRD) Af Amer 126, Est GFR (MDRD) Non-Af 104, BUN/Creatinine Ratio 52.8 H, Glucose 128 H, Calcium 8.0 L, Total Bilirubin 0.30, AST 83 H, ALT 43, Alkaline Phosphatase 70, Total Protein 6.7, Albumin 1.9 L, Globulin 4.8 H, Albumin/Globulin Ratio 0.4 L 06/27/20 06:10: POC Glucose 122 H Clinical Impression(s) from Imaging Studies Chest X-Ray 06/26/20 01:00 IMPRESSION: There is compressive atelectasis in the left lung base. Ill-defined subpleural groundglass opacities are seen more prominent in the lung bases , may represent atypical pneumonia or viral pneumonia (COVID-19 ?). There is a small left pleural effusion. Electronically Signed: Naa Collins, at 1:31 EST Tel , Service support , Current Medications Acetaminophen (Acetaminophen 650 Mg Suppository) 650 mg RECTAL Q4H PRN PRN PRN Reason: Pain Score 1-10/Temp > 100.7 F Last Admin: 06/27/20 06:12 Dose: 650 mg Documented by: Calamine/Phenol (Menthol/Lanolin/Calamine/Znox 113 Gm Tube) 1 applic TOPICAL BID LYN; Protocol Last Admin: 06/26/20 22:06 Dose: 1 applicatio Documented by: Dexamethasone Sodium Phosphate (Dexamethasone 10 Mg/Ml Vial) 6 mg IV DAILY [facility] Last Admin: 06/26/20 10:29 Dose: 6 mg Documented by: Dextrose (Dextrose 50%-Water 25 Gm/50 Ml Disp.Syrin) 0 gm IV X1 PRN; Protocol PRN Reason: Hypoglycemia Glucagon (Glucagon 1 Mg/Ml Syringe) 1 mg IM .X1 PRN PRN Reason: Hypoglycemia Cefepime HCl 2 gm/ Sodium (Chloride) 100 mls @ 200 mls/hr IV Q12 [facility] Last Infusion: 06/26/20 22:33 Dose: Infused Documented by: Vancomycin IV Pharmacy to Dose (1 ea/ Sodium Chloride) 500 mls @ 250 mls/hr IV X1 PRN; Protocol PRN Reason: Rx to Dose Vancomycin HCl 750 mg/ Sodium (Chloride) 265 mls @ 250 mls/hr IV Q24H [facility] Last Infusion: 06/27/20 07:24 Dose: Infused Documented by: Remdesivir 100 mg/ Sodium (Chloride) 250 mls @ 125 mls/hr IV DAILY [facility] Stop: 06/30/20 11:59 Insulin Glargine (Insulin Glargine 100 Units/Ml Pen) 30 units SC BID [facility] Last Admin: 06/26/20 22:04 Dose: 30 u Documented by: Insulin Human Lispro (Insulin Lispro 100 Unit/Ml Insuln.Pen) 0 unit SC Q4 [facility]; Protocol Last Admin: 06/27/20 06:12 Dose: Not Given Documented by: Ondansetron HCl (Ondansetron 4 Mg/2 Ml Vial) 4 mg IV Q8H PRN PRN PRN Reason: NAUSEA/VOMITING Rivastigmine (Rivastigmine 9.5mg Patch) 1 patch TD DAILY [facility] Last Admin: 06/26/20 10:32 Dose: 1 patch Documented by: Sodium Chloride (0.9% Saline Lock 10 Ml Syringe) 10 - 40 ml IV UD PRN PRN Reason: SALINE FLUSH Medical Necessity - Tobacco Use Smoking Status: Never smoker Assessment/Plan All Active Problems SARS (severe acute respiratory syndrome) (Acute) Sepsis (Acute) This is a 70 years old female patient presented to the emergency room because of fever, shortness of breath and change in mental status, found to have acute bilateral COVID-19 pneumonia, acute cystitis with sepsis complicated by acute hypoxic respiratory failure, found to have acute cystitis and acute kidney injury as well as encephalopathy. #1 acute bilateral COVID-19 pneumonia/sepsis: She is on IV dexamethasone and remdesivir as well as empiric IV antibiotics cefepime and vancomycin. She is on Lovenox twice daily subcu. Today, she is febrile, tachycardic, blood pressure is maintained, dyspneic and tachypneic, on airvo with FiO2 of 90%. Yesterday, she was on nasal cannula, high flow. Patient is dyspneic and tachypneic. Blood culture and urine culture are pending. Pulmonology on the case. Infectious disease consulted. Plan to continue same treatment, repeat CBC and CMP tomorrow morning. #2 acute hypoxic respiratory failure: Secondary to #1. Currently, she is on airvo FiO2 of 90%, she has been requiring more oxygen. She is febrile tachycardic. She is on medications as above. Plan as above. #3 acute kidney injury/mild hypernatremia: Due to dehydration and poor oral intake. She received some IV fluids, creatinine improved. Potassium is low, sodium slightly elevated. Plan to discontinue IV fluids, clear liquids, repeat BMP tomorrow morning. #4 encephalopathy: Patient does have a history of MRDD and cognitive impairment. Apparently, she is confused, incoherent at baseline which may be worsened by acute infection with COVID-19. Plan for supportive treatment as above. #5 type 2 diabetes mellitus: Blood sugar has been under fair control. She is on Lantus and sliding scale. #6 MRDD/cognitive impairment/dementia: Continue Exelon patch, supportive treatment. #7 bipolar disorder/depression: Depakote, Effexor and Zoloft because of encephalopathy. #8 CODE STATUS: DNR CCA, no intubation. #9 DVT prophylaxis: Subcu Lovenox twice daily. This note was generated with Dotflux dictation software. It may contain incorrect words, spelling, and punctuation that were not noted in checking the note before signing. Inpatient E&M: 36004 Subs Hosp L3
--- NOTE | 2020-06-27 09:07 | PCM.PN.PUL ---
Patient Problems: Active and Suspected Problems SARS (severe acute respiratory syndrome) (Acute) Sepsis (Acute) Subjective: Patient did okay overnight. Patient did have to be transitioned to Airvo to maintain saturations. Patient with high fevers overnight. Patient continues to complain of pain with any palpation. - Physical Exam Vitals/I&O's: Vital Signs Temp Pulse Resp BP Pulse Ox 39.0 C H 115 H 33 H 126/64 H 89 06/27/20 07:00 06/27/20 07:00 06/27/20 07:00 06/27/20 07:00 06/27/20 07:00 Oxygen Flow Rate (L/min) 60 Oxygen Delivery Method Airvo Weight: 61.689 kg Body Mass Index (BMI) 21.6 Finger Stick Blood Glucose 178 Intake and Output for Last 24 Hours 06/25/20 06/26/20 06/27/20 23:59 23:59 23:59 Intake Total 2481.67 / 2481.67 804 / 804 Output Total 1150 / 1150 250 / 250 Balance 1331.67 / 1331.67 554 / 554 General: Alert, Confused, Non-Cooperative, - - No accessory muscle use noted. Not vocalizing in full sentences to assess conversational dyspnea HEENT: Atraumatic, PERRLA, EOMI, Normocephalic, - - No scleral icterus or injection noted Oral: Moist Mucosa, No Gingival or Mucosal Lesions/ Ulcerations Neck: Supple, No JVD, No Nodes, Trachea Midline Lungs: No rhonchi, No wheeze, No rales, Diminished, - - Difficult to assess secondary to patient cooperation Cardiovascular: Normal S1, Normal S2, No murmurs, No rub noted, No Gallop, Tachycardic Abdomen: Bowel Sounds Present, Soft, Non Tender, Non-Distended, Obese Extremities: No clubbing, No cyanosis, No edema Skin: - - No change from previous Lymphatic: No Cervical, Supraclavicular, or Inguinal Adenopathy Neurological: Cranial nerves II-XII grossly intact, Neuro grossly intact Psych/Mental Status: Anxious, Restless Microbiology Past 72 Hours 06/26/20 00:25 Mucosa - Nose SARS-CoV-2 Antigen (Rapid) - Final Laboratory Results 06/26/20 00:05: Procalcitonin 3.93 H 06/26/20 05:38: POC Glucose 335 H 06/26/20 10:26: POC Glucose 308 H 06/26/20 13:45: POC Glucose 262 H 06/26/20 17:41: POC Glucose 248 H 06/26/20 22:01: POC Glucose 160 H 06/27/20 02:10: POC Glucose 113 H 06/27/20 05:59: WBC 15.0 H, RBC 3.27 L, Hgb 10.0 L, Hct 34.1 L, MCV 104.3 H, MCH 30.6, MCHC 29.3 L, RDW Std Deviation 59.1 H, RDW Coeff of Kim 15.3 H, Plt Count 406, MPV 10.1, Immature Gran % (Auto) 3.100 H, Neut % (Auto) 77.3 H, Lymph % (Auto) 15.2 L, [place] % (Auto) 3.5, Eos % (Auto) 0.0, Baso % (Auto) 0.9, Absolute Neuts (auto) 11.6 H, Absolute Lymphs (auto) 2.28, Nucleated RBC % 0.4, Platelet Estimate ADEQUATE, Macrocytosis 2+ 06/27/20 05:59: Sodium 152 H, Potassium 3.3 L, Chloride 120 H, Carbon Dioxide 26.0, Anion Gap 6, BUN 32 H, Creatinine 0.61, Estim Creat Clear Calc 50.41, Est GFR (MDRD) Af Amer 126, Est GFR (MDRD) Non-Af 104, BUN/Creatinine Ratio 52.8 H, Glucose 128 H, Calcium 8.0 L, Total Bilirubin 0.30, AST 83 H, ALT 43, Alkaline Phosphatase 70, Total Protein 6.7, Albumin 1.9 L, Globulin 4.8 H, Albumin/Globulin Ratio 0.4 L 06/27/20 06:10: POC Glucose 122 H Current Medications Acetaminophen (Acetaminophen 650 Mg Suppository) 650 mg RECTAL Q4H PRN PRN PRN Reason: Pain Score 1-10/Temp > 100.7 F Last Admin: 06/27/20 06:12 Dose: 650 mg Documented by: Calamine/Phenol (Menthol/Lanolin/Calamine/Znox 113 Gm Tube) 1 applic TOPICAL BID [facility]; Protocol Last Admin: 06/26/20 22:06 Dose: 1 applicatio Documented by: Dexamethasone Sodium Phosphate (Dexamethasone 10 Mg/Ml Vial) 6 mg IV DAILY [facility] Last Admin: 06/26/20 10:29 Dose: 6 mg Documented by: Dextrose (Dextrose 50%-Water 25 Gm/50 Ml Disp.Syrin) 0 gm IV X1 PRN; Protocol PRN Reason: Hypoglycemia Enoxaparin Sodium (Enoxaparin 30 Mg/0.3 Ml Syringe) 30 mg SC BID LYN Glucagon (Glucagon 1 Mg/Ml Syringe) 1 mg IM .X1 PRN PRN Reason: Hypoglycemia Cefepime HCl 2 gm/ Sodium (Chloride) 100 mls @ 200 mls/hr IV Q12 [facility] Last Admin: 06/27/20 08:43 Dose: 200 mls/hr Documented by: Vancomycin IV Pharmacy to Dose (1 ea/ Sodium Chloride) 500 mls @ 250 mls/hr IV X1 PRN; Protocol PRN Reason: Rx to Dose Vancomycin HCl 750 mg/ Sodium (Chloride) 265 mls @ 250 mls/hr IV Q24H [facility] Last Infusion: 06/27/20 07:24 Dose: Infused Documented by: Remdesivir 100 mg/ Sodium (Chloride) 250 mls @ 125 mls/hr IV DAILY [facility] Stop: 06/30/20 11:59 Potassium Chloride () 10 meq in 100 mls @ 100 mls/hr IV BOLUS Q1H [facility] Stop: 06/27/20 10:59 Insulin Glargine (Insulin Glargine 100 Units/Ml Pen) 30 units SC BID [facility] Last Admin: 06/26/20 22:04 Dose: 30 u Documented by: Insulin Human Lispro (Insulin Lispro 100 Unit/Ml Insuln.Pen) 0 unit SC Q4 [facility]; Protocol Last Admin: 06/27/20 06:12 Dose: Not Given Documented by: Ondansetron HCl (Ondansetron 4 Mg/2 Ml Vial) 4 mg IV Q8H PRN PRN PRN Reason: NAUSEA/VOMITING Rivastigmine (Rivastigmine 9.5mg Patch) 1 patch TD DAILY [facility] Last Admin: 06/26/20 10:32 Dose: 1 patch Documented by: Sodium Chloride (0.9% Saline Lock 10 Ml Syringe) 10 - 40 ml IV UD PRN PRN Reason: SALINE FLUSH Medical Necessity - Tobacco Use Smoking Status: Never smoker Assessment/Plan All Active Problems SARS (severe acute respiratory syndrome) (Acute) Sepsis (Acute) RECOMMENDATIONS: 1. Continue empiric antibiotics pending urine culture 2. Consider CTA 3. Wean oxygen as tolerated. Hold IV fluids 4. Continue Decadron. Okay to initiate remdesivir from my perspective 5. Consider discussion about goals of therapy for BiPAP IMPRESSIONS: 1. Acute hypoxic respiratory failure secondary to COVID-19 pneumonia Patient COVID-19 positive with significant hypoxia and supplemental oxygen requirements. Patient reportedly has had symptoms for quite some time, but given severity of illness and CODE STATUS, it is reasonable to proceed with Decadron and remdesivir. Chest x-ray shows a possible left pleural effusion, but PE would also be a concern. With improved renal function, CTA of the chest may be helpful for characterization of lung parenchyma. It is unclear the patient would tolerate BiPAP therapy if necessary given her response to physical exam. May need to address with family about goals of therapy if patient has aggression. Hold IV fluids. 2. Severe sepsis Unclear if COVID-19 is the only infection. Patient does have cultures pending. Given severity of illness, reasonable to initiate on broad-spectrum antibiotics as patient does live in an extended care facility. Control fever to decrease metabolic demand given hypoxic respiratory failure. Sinus tachycardia likely secondary to fever. 3. Acute kidney injury Baseline creatinine appears to be approximately 0.7. Patient does have hypernatremia and hyperchloremia suggestive of prerenal etiology. Patient did receive normal saline. We will have to monitor closely as this could complicate respiratory failure. If kidney injury resolves over the next 24 hours, possibly discontinue IV fluids and obtain a CTA of the chest for better characterization of lung involvement. 4. Diabetes mellitus?uncontrolled/hyperglycemia/mood disorder/developmental delay/marginal history Complicates care, management, recovery and prognosis. Patient is on basal insulin at this time, but this will likely need to be increased given Decadron therapy. Patient appears to be tolerating current interventions. Could consider Haldol as an IV option until mental status improves. Inpatient E&M: [id number] [facility] L3
[2020-06-27] MEDS: Potassium Chloride 10mEq/100mL 10 MEQ/100 ML IV.SOLN. 100 MEQ IV BOLUS ×2 (09:48→12:55)
[2020-06-27] MEDS: dexAMETHasone 10 MG/ML Vial 6 MG IV (09:54)
[2020-06-27] MEDS: Rivastigmine 9.5mg Patch 1 PATCH TD (09:55)
[2020-06-27] MEDS: Enoxaparin 30 MG/0.3 ML Syringe SC ×2 (09:55→22:18)
[2020-06-27] MEDS: Menthol/Lanolin/Calamine/Znox 113 GM Tube 1 APPLIC TOPICAL ×2 (10:01→22:17)
[2020-06-27 10:15] LABS: Bedside Glucose 140 mg/dL (70-110)
[2020-06-27] MEDS: Insulin Lispro 100 UNIT/ML INSULN.PEN SC ×2 (15:16→18:09)
[2020-06-27 17:30] LABS: Bedside Glucose 171 mg/dL (70-110)
[2020-06-27 18:15] LABS: Bedside Glucose 168 mg/dL (70-110)
[2020-06-27 22:36] LABS: Bedside Glucose 143 mg/dL (70-110)
[2020-06-28] VITALS (17 sets, daily range): BP systolic 109–133; BP diastolic 52–68; PULSE 84–94; RESP 18–24; TEMP 36.3–36.7; O2SAT 90–97
--- NOTE | 2020-06-28 00:51 | CPS ---
decreased fi02 to 84%
[2020-06-28 02:01] LABS: Bedside Glucose 119 mg/dL (70-110)
[2020-06-28 06:32] LABS: Absolute Lymphocyte Count 2.09 X10^3/uL (0.83-4.51); Absolute Neutrophil Count 10.7 X10^3/uL (2.0-7.7); Basophil# 0.06 X10^3/uL; Basophil% 0.4 % (0-1); Hemoglobin 9.6 g/dL (12.0-15.0); Lymphocyte # 2.09 X10^3/ul (4.0); Lymphocyte % 15.5 % (19-41); Mean Corp Hgb Conc 29.1 g/dL (32-36); Mean Corpuscular Hgb 30.6 pg (27.0-32.0); Mean Corpuscular Volume 105.1 fL (81-99); Mean Platelet Vol. 10.8 fl (6.2-12.0); Monocyte# 0.35 X10^3/uL; Monocyte% 2.6 % (0-10); NRBC Flagged by Analyzer 0.1 % (0-5); Neutrophil # 10.65 X10^3/uL (2.7-7.7); Neutrophil % 79.1 % (47-70); POSITIVE MORPHOLOGY YES; Platelet Count 321 K/mm3 (150-450); RBC Distribution Width CV 15.1 % (11.6-14.6); RBC Distribution Width SD 59.1 fl (35.1-43.9); Red Blood Count 3.14 M/mm3 (4.2-5.4); White Blood Count 13.5 K/mm3 (4.4-11.0)
[2020-06-28 06:33] LABS: Differential Indicated SCAN CRITERIA MET
[2020-06-28] MEDS: Insulin Lispro 100 UNIT/ML INSULN.PEN SC ×4 (06:48→18:00)
[2020-06-28 06:56] LABS: ALB/GLOB Ratio 0.4 RATIO (0.9-2.4); AST(SGOT) 85 U/L (15-37); Alanine Aminotransfer ALT/SGPT 47 U/L (13-56); Albumin, Serum 1.8 g/dL (3.2-5.0); Alkaline Phosphatase 75 U/L (45-117); Anion Gap 6 (5-15); BUN 35 mg/dL (7-18); BUN/Creat Ratio 59.6 RATIO (10-20); Chloride 121 mmol/L (98-107); Creatinine, Serum 0.59 mg/dL (0.55-1.02); EST Glomerular Filtration Rate 108 mL/min (>60); Est Glom Filt Rate - Afr Amer 131 mL/min (>60); Estimated Creatinine Clearance 50.41 ml/min; Globulin 4.5 g/dL (2.2-4.2); Glucose 145 mg/dL (74-106); Potassium 3.4 mmol/L (3.5-5.1); Protein, Total 6.3 g/dL (6.4-8.2); Sodium Level 153 mmol/L (136-145)
[2020-06-28 06:57] LABS: Vancomycin, Trough Level 4.5 ug/mL (5.0-15.0)
[2020-06-28 07:10] LABS: Bedside Glucose 157 mg/dL (70-110)
--- NOTE | 2020-06-28 07:58 | PCM.PROGNOTE ---
Patient Problems: Active and Suspected Problems SARS (severe acute respiratory syndrome) (Acute) Sepsis (Acute) Subjective: Chief complaint: Follow-up after admission for acute COVID-19 pneumonia, sepsis, acute hypoxic respiratory failure and acute kidney injury. Patient seen and examined. No acute events overnight. Small, she is more interactive. Fully alert and awake. Was able to lift her right hand upon request. She has been having spikes of fever overnight, this morning she is afebrile, heart rate stable, blood pressure stable, remained on airvo. - Physical Exam Vitals/I&O's: Vital Signs Temp Pulse Resp BP Pulse Ox 97.3 F L 87 24 H 114/56 L 90 06/28/20 07:06 06/28/20 07:06 06/28/20 07:06 06/28/20 07:06 06/28/20 07:06 Oxygen Flow Rate (L/min) 60 Oxygen Delivery Method Airvo Weight: 136 lb 0.015 oz Body Mass Index (BMI) 21.6 Finger Stick Blood Glucose 178 Intake and Output for Last 24 Hours 06/26/20 06/27/20 06/28/20 23:59 23:59 23:59 Intake Total 2481.67 / 2481.67 1454 / 1454 0 / 0 Output Total 1150 / 1150 675 / 825 300 / 300 Balance 1331.67 / 1331.67 779 / 629 -300 / -300 General: Alert, Cooperative, - - Moderately short of breath. HEENT: Atraumatic, PERRLA, EOMI, Normocephalic Oral: Moist Mucosa, No Gingival or Mucosal Lesions/ Ulcerations Neck: Supple, No JVD, Negative Carotid Bruits, Trachea Midline, Thyroid Normal Size and Texture Lungs: No rhonchi, No wheeze, No rales, Diminished, Short of Breath, - - Decreased breath sounds bilateral. Cardiovascular: Regular rate, Regular Rhythm, Normal S1, Normal S2, PMI Normal Abdomen: Bowel Sounds Present, Soft, Non Tender, Non-Distended, No Hepato-splenomegaly, Obese Extremities: No clubbing, No cyanosis, No edema Skin: No rashes, No breakdown Lymphatic: No Cervical, Supraclavicular, or Inguinal Adenopathy Neurological: Cranial nerves II-XII grossly intact, Neuro grossly intact Psych/Mental Status: Restless Microbiology Past 72 Hours 06/26/20 00:30 Urine Catheter - Catheter Urine Culture - Preliminary Culture exhibits no growth. 06/26/20 00:25 Mucosa - Nose SARS-CoV-2 Antigen (Rapid) - Final Laboratory Results 06/27/20 09:57: POC Glucose 140 H 06/27/20 15:15: POC Glucose 171 H 06/27/20 18:04: POC Glucose 168 H 06/27/20 22:28: POC Glucose 143 H 06/28/20 01:42: POC Glucose 119 H 06/28/20 05:30: Vancomycin Trough 4.5 L 06/28/20 05:30: WBC 13.5 H, RBC 3.14 L, Hgb 9.6 L, Hct 33.0 L, MCV 105.1 H, MCH 30.6, MCHC 29.1 L, RDW Std Deviation 59.1 H, RDW Coeff of Kim 15.1 H, Plt Count 321, MPV 10.8, Immature Gran % (Auto) 2.400 H, Neut % (Auto) 79.1 H, Lymph % (Auto) 15.5 L, [place] % (Auto) 2.6, Eos % (Auto) 0.0, Baso % (Auto) 0.4, Absolute Neuts (auto) 10.7 H, Absolute Lymphs (auto) 2.09, Nucleated RBC % 0.1 06/28/20 05:30: Sodium 153 H, Potassium 3.4 L, Chloride 121 H, Carbon Dioxide 26.0, Anion Gap 6, BUN 35 H, Creatinine 0.59, Estim Creat Clear Calc 50.41, Est GFR (MDRD) Af Amer 131, Est GFR (MDRD) Non-Af 108, BUN/Creatinine Ratio 59.6 H, Glucose 145 H, Calcium 8.0 L, Total Bilirubin 0.30, AST 85 H, ALT 47, Alkaline Phosphatase 75, Total Protein 6.3 L, Albumin 1.8 L, Globulin 4.5 H, Albumin/Globulin Ratio 0.4 L 06/28/20 06:48: POC Glucose 157 H Current Medications Acetaminophen (Acetaminophen 650 Mg Suppository) 650 mg RECTAL Q4H PRN PRN PRN Reason: Pain Score 1-10/Temp > 100.7 F Last Admin: 06/27/20 12:48 Dose: 650 mg Documented by: Calamine/Phenol (Menthol/Lanolin/Calamine/Znox 113 Gm Tube) 1 applic TOPICAL BID [facility]; Protocol Last Admin: 06/27/20 22:17 Dose: 1 applicatio Documented by: Dexamethasone Sodium Phosphate (Dexamethasone 10 Mg/Ml Vial) 6 mg IV DAILY [facility] Last Admin: 06/27/20 09:54 Dose: 6 mg Documented by: Dextrose (Dextrose 50%-Water 25 Gm/50 Ml Disp.Syrin) 0 gm IV X1 PRN; Protocol PRN Reason: Hypoglycemia Enoxaparin Sodium (Enoxaparin 30 Mg/0.3 Ml Syringe) 30 mg SC BID [facility] Last Admin: 06/27/20 22:18 Dose: 30 mg Documented by: Glucagon (Glucagon 1 Mg/Ml Syringe) 1 mg IM .X1 PRN PRN Reason: Hypoglycemia Cefepime HCl 2 gm/ Sodium (Chloride) 100 mls @ 200 mls/hr IV Q12 [facility] Last Infusion: 06/27/20 22:50 Dose: Infused Documented by: Vancomycin IV Pharmacy to Dose (1 ea/ Sodium Chloride) 500 mls @ 250 mls/hr IV X1 PRN; Protocol PRN Reason: Rx to Dose Vancomycin HCl 750 mg/ Sodium (Chloride) 265 mls @ 250 mls/hr IV Q24H [facility] Last Admin: 06/28/20 06:50 Dose: 250 mls/hr Documented by: Remdesivir 100 mg/ Sodium (Chloride) 250 mls @ 125 mls/hr IV DAILY [facility] Stop: 06/30/20 11:59 Last Infusion: 06/27/20 13:15 Dose: Infused Documented by: Insulin Glargine (Insulin Glargine 100 Units/Ml Pen) 30 units SC BID [facility] Last Admin: 06/27/20 22:30 Dose: Not Given Documented by: Insulin Human Lispro (Insulin Lispro 100 Unit/Ml Insuln.Pen) 0 unit SC Q4 [facility]; Protocol Last Admin: 06/28/20 06:48 Dose: 2 u Documented by: Ondansetron HCl (Ondansetron 4 Mg/2 Ml Vial) 4 mg IV Q8H PRN PRN PRN Reason: NAUSEA/VOMITING Rivastigmine (Rivastigmine 9.5mg Patch) 1 patch TD DAILY [facility] Last Admin: 06/27/20 09:55 Dose: 1 patch Documented by: Sodium Chloride (0.9% Saline Lock 10 Ml Syringe) 10 - 40 ml IV UD PRN PRN Reason: SALINE FLUSH Medical Necessity - Tobacco Use Smoking Status: Never smoker Assessment/Plan All Active Problems SARS (severe acute respiratory syndrome) (Acute) Sepsis (Acute) This is a 70 years old female patient presented to the emergency room because of fever, shortness of breath and change in mental status, found to have acute bilateral COVID-19 pneumonia, acute cystitis with sepsis complicated by acute hypoxic respiratory failure, found to have acute cystitis and acute kidney injury as well as encephalopathy. #1 acute bilateral COVID-19 pneumonia/sepsis: She is on IV dexamethasone and remdesivir as well as empiric IV antibiotics cefepime and vancomycin. She is on Lovenox twice daily subcu. this morning, she is afebrile, heart rate stable, blood pressure improved, remains Airvo. blood culture is pending. Urine culture showed no growth. Pulmonology on the case. Infectious disease consulted. We may need to de-escalate IV antibiotics. Plan to continue same treatment. #2 acute hypoxic respiratory failure: Secondary to #1. Currently, she is on airvo FiO2 of 86 %, she has been requiring more oxygen. Today, she is afebrile, heart rate stabilized, blood pressure stable. Plan as above. #3 acute kidney injury/mild hypernatremia: Due to dehydration and poor oral intake. She received some IV fluids. Today's BUN is 35, creatinine 0.59, improved. Potassium is still low at 3.5. Currently, she is off of IV fluids. #4 encephalopathy: Patient does have a history of MRDD and cognitive impairment. Apparently, she is confused, incoherent at baseline which may be worsened by acute infection with COVID-19. Her mentation has been improving slowly, today she is fully alert and awake, trying to follow commands. #5 type 2 diabetes mellitus: Blood sugar has been under fair control. She is on Lantus and sliding scale. #6 MRDD/cognitive impairment/dementia: Continue Exelon patch, supportive treatment. #7 bipolar disorder/depression: Depakote, Effexor and Zoloft because of encephalopathy. #8 CODE STATUS: DNR CCA, no intubation. #9 DVT prophylaxis: Subcu Lovenox twice daily. This note was generated with [employer] software. It may contain incorrect words, spelling, and punctuation that were not noted in checking the note before signing. Inpatient E&M: 78420 [facility] L2
--- NOTE | 2020-06-28 08:11 | PCM.RX.CS ---
Consult Pharmacy has been consulted to manage selected antiobiotic: Vancomycin Type of Consult: Follow-up Suspected Infection: Sepsis Labs: Sodium 153 mmol/L (136-145) H 06/28/20 05:30 Potassium 3.4 mmol/L (3.5-5.1) L 06/28/20 05:30 Chloride 121 mmol/L (98-107) H 06/28/20 05:30 Carbon Dioxide 26.0 mmol/L (21.0-32.0) 06/28/20 05:30 Anion Gap 6 (5-15) 06/28/20 05:30 BUN 35 mg/dL (7-18) H 06/28/20 05:30 Creatinine 0.59 mg/dL (0.55-1.02) 06/28/20 05:30 Est GFR (MDRD) Af Amer 131 mL/min (>60) 06/28/20 05:30 Est GFR (MDRD) Non-Af 108 mL/min (>60) 06/28/20 05:30 BUN/Creatinine Ratio 59.6 RATIO (10-20) H 06/28/20 05:30 Glucose 145 mg/dL (74-106) H 06/28/20 05:30 Vancomycin Trough 4.5 ug/mL (5.0-15.0) L 06/28/20 05:30 Microbiology: Microbiology 06/26/20 00:30 Urine Catheter - Catheter Urine Culture - Preliminary Culture exhibits no growth. 06/26/20 00:25 Mucosa - Nose SARS-CoV-2 Antigen (Rapid) - Final Goal Trough: 15-20 mcg/mL Pharmacy Plan for Drug Dosing: VANCOMYCIN LEVEL RECEIVED Current Vancomycin Dose: 750mg q24h (0600) Number of Doses Received: 1000mg x1, 750mg x2 Vancomycin Level: 4.5 Hours Since Last Dose: ~11.5 Renal Function: SrCr 0.59 Renal Function Trend: SrCr is Decreasing (was 1.31) Lab/Micro: Vancomycin Plan/Comments: change dose to 500mg q12h () Pending Level: 06/30/20 @ 0530 Pharmacy Service will continue to monitor and adjust dosing as required. Follow-Up Labs: Trough Vancomycin - 06/3030
[2020-06-28] MEDS: Menthol/Lanolin/Calamine/Znox 113 GM Tube 1 APPLIC TOPICAL ×2 (09:35→21:15)
[2020-06-28] MEDS: dexAMETHasone 10 MG/ML Vial 6 MG IV (09:36)
[2020-06-28] MEDS: Rivastigmine 9.5mg Patch 1 PATCH TD (09:38)
[2020-06-28] MEDS: Enoxaparin 30 MG/0.3 ML Syringe SC ×2 (09:47→21:16)
--- NOTE | 2020-06-28 09:47 | CASEMGMT ---
VIRGINIE faxed updates to [place]. Jesika HINOJOSA DISABILITY ATTORNEY
[2020-06-28 11:05] LABS: Bedside Glucose 159 mg/dL (70-110)
[2020-06-28 13:23] LABS: Pathologist Review Reviewed
[2020-06-28 15:56] LABS: Bedside Glucose 266 mg/dL (70-110)
--- NOTE | 2020-06-28 16:10 | CHAPLAIN ---
Type of Pastoral Visit ___ Initial Visit ___ Follow-up Visit ___ On-call Visit ___ General Patient Visit ___ Spiritual Assessment ___ Family Conference ___ Bereavement ___ Rapid Response ___ Code Blue _x__ Other (describe below) Pastoral Care Referral From ___ Patient _x__ Family ___ Nurse ___ Physician ___ Clean Out Driller ___ Services Mgr ___ Other (describe below) Sacrament/Intervention ___ Active listening ___ Anointing ___ Mu-Ism ___ Bereavement ___ Communion ___ Diamond exploration ___ ___ Life review ___ Prayer ___ Reconciliation ___ Sacrament of Sick ___ Supportive presence ___ Wedding _x__ Other (describe below) Pastoral Comments consulted with patient's RN to ask about how to give support; RN states pt is unable to answer questions and talk on the phone; This russian language professor requested RN to notify pt of support and prayers; RN will do
--- NOTE | 2020-06-28 16:58 | PCM.HP.ID ---
Problem List (1) SARS (severe acute respiratory syndrome) Status: Acute Reason for Consult: covid Consulted by: Dr. Holt History of Present Illness: The patient is a 70 year old F presented 06/26 with fever, cough, altered mental status. Started on vanc/cefepime/remdesivir/dex. Covid (+). Mental status slowly improving, but pt unable to provide history or ROS. - Medical History Past Medical History (Chronic Problems): Chronic Problems Mild cognitive impairment (Chronic) Hyperlipemia (Chronic) Enteritis (Chronic) Diabetes mellitus (Chronic) UTI (lower urinary tract infection) (Chronic) Allergies/Adverse Reactions: Allergies honey Allergy (Verified 06/26/20 08:01) PT UNABLE TO RESPOND-NEEDS F/U hydroxyzine [From Vistaril] Allergy (Verified 06/26/20 03:33) PT UNABLE TO RESPOND-NEEDS F/U metformin Allergy (Verified 06/26/20 03:33) PT UNABLE TO RESPOND-NEEDS F/U Penicillins Allergy (Verified 06/26/20 03:32) Unknown Sulfa (Sulfonamide Antibiotics) Allergy (Verified 06/26/20 03:32) Unknown Home Medications: Ambulatory Orders Medication Instructions Recorded Atorvastatin Calcium [Lipitor] 40 mg PO QHS 02/23/14 Calcium Carbonate/Vitamin D3 1 each PO DAILY 02/23/14 [Calcium 600-Vit D3 400 Tablet] Ergocalciferol [Vitamin D] 2,000 unit PO DAILY 02/23/14 Multivit-Min/FA/Lycopene/Lut 1 each PO DAILY 02/23/14 [Centrum Silver Tablet] Venlafaxine HCl [Effexor] 75 mg PO BID 02/23/14 Acetaminophen [Pain Relief] 650 mg PO Q4H PRN PRN 06/26/20 Acidophilus 1 cap PO DAILY 06/26/20 Aspirin [Aspirin, Baby] 81 mg PO DAILY@0800 06/26/20 Azithromycin 1 tab PO DAILY 06/26/20 Divalproex Sodium 375 mg PO DAILY 06/26/20 Divalproex Sodium 500 mg PO QHS 06/26/20 Dulaglutide [Trulicity] 0.5 ml SQ QWEEK 06/26/20 Insulin Aspart [Novolog Flexpen] units SQ .COMPLEX 06/26/20 Ketoconazole 1 applic TOPICAL BID PRN 12/12/20 Loperamide [Imodium] 2 mg PO PRN PRN 06/26/20 Memantine HCl 10 mg PO BID 06/26/20 Rivastigmine 9.5mg Patch [Exelon 9.5 mg TOPICAL DAILY 06/26/20 9.5MG/24HR PATCH] Sertraline HCl [Zoloft] 100 mg PO QHS 06/26/20 Sitagliptin Phosphate [Januvia] 100 mg PO DAILY 06/26/20 Zinc Sulfate 220 mg PO DAILY 06/26/20 Zofran 4 mg PO Q6H PRN 06/26/20 dexAMETHasone [Dexamethasone] 1 tab PO BID 06/26/20 glipiZIDE [Glucotrol] 10 mg PO DAILY@0730 06/26/20 - Social History Tobacco Use: non-smoker Vital Signs Temp Pulse Resp BP Pulse Ox 97.6 F L 86 20 H 116/61 92 06/28/20 15:45 06/28/20 15:45 06/28/20 15:45 06/28/20 15:45 06/28/20 15:45 Oxygen Flow Rate (L/min) 60 Oxygen Delivery Method Airvo Weight: 61.689 kg Body Mass Index (BMI) 21.6 Finger Stick Blood Glucose 178 Microbiology Past 72 Hours 06/26/20 00:30 Urine Culture - Final Urine Catheter - Catheter Culture exhibits no growth. 06/26/20 00:25 Blood Culture - Preliminary Blood Culture (Wb) - Right Forearm No growth in 48 hours. 06/26/20 00:05 Blood Culture - Preliminary Blood Culture (Wb) - Left Forearm No growth in 48 hours. 06/26/20 00:25 SARS-CoV-2 Antigen (Rapid) - Final Mucosa - Nose Laboratory Tests Past 24 Hrs 06/26/20 06/28/20 06/28/20 00:05 05:30 05:30 WBC 13.5 H RBC 3.14 L Hgb 9.6 L Hct 33.0 L MCV 105.1 H MCH 30.6 MCHC 29.1 L RDW Std Deviation 59.1 H RDW Coeff of Kim 15.1 H Plt Count 321 MPV 10.8 Immature Gran % (Auto) 2.400 H Neut % (Auto) 79.1 H Lymph % (Auto) 15.5 L [place] % (Auto) 2.6 Eos % (Auto) 0.0 Baso % (Auto) 0.4 Absolute Neuts (auto) 10.7 H Absolute Lymphs (auto) 2.09 Nucleated RBC % 0.1 [address] Review Reviewed Sodium Potassium Chloride Carbon Dioxide Anion Gap BUN Creatinine Estim Creat Clear Calc Est GFR (MDRD) Af Amer Est GFR (MDRD) Non-Af BUN/Creatinine Ratio Glucose Calcium Total Bilirubin AST ALT Alkaline Phosphatase Total Protein Albumin Globulin Albumin/Globulin Ratio Vancomycin Trough 4.5 L 06/28/20 05:30 WBC RBC Hgb Hct MCV MCH MCHC RDW Std Deviation RDW Coeff of Kim Plt Count MPV Immature Gran % (Auto) Neut % (Auto) Lymph % (Auto) [place] % (Auto) Eos % (Auto) Baso % (Auto) Absolute Neuts (auto) Absolute Lymphs (auto) Nucleated RBC % Diff Path Review Sodium 153 H Potassium 3.4 L Chloride 121 H Carbon Dioxide 26.0 Anion Gap 6 BUN 35 H Creatinine 0.59 Estim Creat Clear Calc 50.41 Est GFR (MDRD) Af Amer 131 Est GFR (MDRD) Non-Af 108 BUN/Creatinine Ratio 59.6 H Glucose 145 H Calcium 8.0 L Total Bilirubin 0.30 AST 85 H ALT 47 Alkaline Phosphatase 75 Total Protein 6.3 L Albumin 1.8 L Globulin 4.5 H Albumin/Globulin Ratio 0.4 L Vancomycin Trough - Other Studies Radiology: [] reviewed Other Studies: [] Route of nutrition/ use of supplements: [] Nutritional Intake: [] IV Site: [] Culp Catheter: [] - Physical Exam General: Confused - unable to answer questions HEENT: Atraumatic, PERRLA, EOMI Neck: Supple, No Nodes Lungs: Diminished Cardiovascular: Regular rate, Regular Rhythm Abdomen: Soft, Non Tender, Non-Distended Extremities: No edema Skin: No rashes IV Site: Peripheral, without redness Musculoskeletal: No Tenderness to Palpation of Joints or Extremities Neurological: Cranial nerves II-XII grossly intact - Assessment/Plan Antibiotics: [] Assessment/Plan: [] Active and Suspected Problems SARS (severe acute respiratory syndrome) (Acute) Sepsis (Acute) covid with hypoxia, encephalopathy, persistent fever - on empiric vanc/cefepime. Cxs neg so far, PCT was 4. Will stop vanc. On dex and remdesivir, lovenox 30mg bid. Will order monitoring labs and d-dimer. Will follow, thank you
[2020-06-28 18:26] LABS: Bedside Glucose 223 mg/dL (70-110)
[2020-06-28] MEDS: 0.9% Saline Lock 10 ML Syringe IV (21:16)
[2020-06-28 21:50] LABS: Bedside Glucose 82 mg/dL (70-110)
[2020-06-28 23:25] LABS: Bedside Glucose 162 mg/dL (70-110)
[2020-06-29] VITALS (22 sets, daily range): BP systolic 96–139; BP diastolic 59–88; PULSE 18–98; RESP 12–28; TEMP 36.3–37.5; O2SAT 90–99
[2020-06-29] MEDS: Insulin Lispro 100 UNIT/ML INSULN.PEN SC ×6 (03:13→22:51)
[2020-06-29 05:11] LABS: Bedside Glucose 159 mg/dL (70-110)
[2020-06-29] MEDS: 0.9% Saline Lock 10 ML Syringe IV (05:25)
[2020-06-29 05:36] LABS: Bedside Glucose 167 mg/dL (70-110)
[2020-06-29 07:10] LABS: Hematocrit 34.1 % (37-47); Hemoglobin 9.7 g/dL (12.0-15.0); Mean Corp Hgb Conc 28.4 g/dL (32-36); Mean Corpuscular Hgb 29.9 pg (27.0-32.0); Mean Corpuscular Volume 105.2 fL (81-99); Mean Platelet Vol. 10.5 fl (6.2-12.0); Platelet Count 312 K/mm3 (150-450); RBC Distribution Width CV 14.9 % (11.6-14.6); RBC Distribution Width SD 59.3 fl (35.1-43.9); Red Blood Count 3.24 M/mm3 (4.2-5.4); White Blood Count 15.1 K/mm3 (4.4-11.0)
[2020-06-29 07:22] LABS: D-Dimer Quantitative (DVT/PE) 2.48 FEU/ug/m (0.27-0.49)
[2020-06-29 07:44] LABS: ALB/GLOB Ratio 0.4 RATIO (0.9-2.4); AST(SGOT) 70 U/L (15-37); Alanine Aminotransfer ALT/SGPT 48 U/L (13-56); Albumin, Serum 1.8 g/dL (3.2-5.0); Alkaline Phosphatase 78 U/L (45-117); Anion Gap 6 (5-15); BUN 33 mg/dL (7-18); Chloride 126 mmol/L (98-107); Creatinine, Serum 0.59 mg/dL (0.55-1.02); EST Glomerular Filtration Rate 108 mL/min (>60); Est Glom Filt Rate - Afr Amer 131 mL/min (>60); Estimated Creatinine Clearance 50.41 ml/min; Globulin 4.4 g/dL (2.2-4.2); Glucose 155 mg/dL (74-106); Potassium 3.5 mmol/L (3.5-5.1); Protein, Total 6.2 g/dL (6.4-8.2); Sodium Level 155 mmol/L (136-145)
--- NOTE | 2020-06-29 08:07 | PN_ITS ---
Patient Problems: Active and Suspected Problems SARS (severe acute respiratory syndrome) (Acute) Sepsis (Acute) Reason for Visit: Follow-up for COVID-19 pneumonia with acute hypoxic respiratory failure. Objective: Seen by ID. No fever overnight. Patient very hypoxic. On 60% FiO2 AIR VO. Patient also has dementia on baseline MRDD. Physical exam General: Alert, Oriented x3, Cooperative HEENT: Atraumatic, PERRLA, EOMI, Normocephalic Oral: No Gingival or Mucosal Lesions/ Ulcerations Neck: Supple, No JVD, Negative Carotid Bruits Lungs: Air entry diminished in bilateral lung bases. No crepitation/rhonchi Cardiovascular: Regular rate, Regular Rhythm, Normal S1, Normal S2, No murmurs Abdomen: Bowel Sounds Present, Soft, Non Tender, Non-Distended : No renal angle tenderness. No suprapubic tenderness. Extremities: No edema, Capillary Refill Less than 3 Seconds Skin: No rashes, No breakdown Musculoskeletal: No Tenderness to Palpation of Joints or Extremities Neurological: Cranial nerves II-XII grossly intact, Deep Tendon Reflexes 2+/4 and Symmetrical, Neuro grossly intact Psych/Mental Status: Normal Affect, Appropriate. Vitals/I&O's: Vital Signs Temp Pulse Resp BP Pulse Ox 98.1 F 81 19 H 115/61 90 06/29/20 06:15 06/29/20 07:55 06/29/20 07:55 06/29/20 06:15 06/29/20 07:55 Oxygen Flow Rate (L/min) 60 Oxygen Delivery Method Airvo Weight: 136 lb 0.015 oz Body Mass Index (BMI) 21.6 Finger Stick Blood Glucose 178 Intake and Output for Last 24 Hours 06/27/20 06/28/20 06/29/20 23:59 23:59 23:59 Intake Total 1454 / 1454 975 / 975 0 / 0 Output Total 675 / 825 1100 / 1250 300 / 300 Balance 779 / 629 -125 / -275 -300 / -300 Microbiology Past 72 Hours 06/26/20 00:30 Urine Catheter - Catheter Urine Culture - Final Culture exhibits no growth. 06/26/20 00:25 Blood Culture (Wb) - Right Forearm Blood Culture - Preliminary No growth in 48 hours. 06/26/20 00:05 Blood Culture (Wb) - Left Forearm Blood Culture - Preliminary No growth in 48 hours. Laboratory Results 06/26/20 00:05: Diff Path Review Reviewed 06/28/20 09:43: POC Glucose 159 H 06/28/20 15:41: POC Glucose 266 H 06/28/20 17:59: POC Glucose 223 H 06/28/20 21:05: POC Glucose 82 06/28/20 23:19: POC Glucose 162 H 06/29/20 03:10: POC Glucose 159 H 06/29/20 05:08: POC Glucose 167 H 06/29/20 06:50: WBC 15.1 H, RBC 3.24 L, Hgb 9.7 L, Hct 34.1 L, MCV 105.2 H, MCH 29.9, MCHC 28.4 L, RDW Std Deviation 59.3 H, RDW Coeff of Kim 14.9 H, Plt Count 312, MPV 10.5 06/29/20 06:50: Sodium 155 H, Potassium 3.5, Chloride 126 H, Carbon Dioxide 23.0, Anion Gap 6, BUN 33 H, Creatinine 0.59, Estim Creat Clear Calc 50.41, Est GFR (MDRD) Af Amer 131, Est GFR (MDRD) Non-Af 108, BUN/Creatinine Ratio 56.0 H, Glucose 155 H, Calcium 8.0 L, Total Bilirubin 0.40, AST 70 H, ALT 48, Alkaline Phosphatase 78, Total Protein 6.2 L, Albumin 1.8 L, Globulin 4.4 H, Albumin/Globulin Ratio 0.4 L 06/29/20 06:50: D-Dimer Quant (PE/DVT) 2.48 H* Current Medications Acetaminophen (Acetaminophen 650 Mg Suppository) 650 mg RECTAL Q4H PRN PRN PRN Reason: Pain Score 1-10/Temp > 100.7 F Last Admin: 06/27/20 12:48 Dose: 650 mg Documented by: Calamine/Phenol (Menthol/Lanolin/Calamine/Znox 113 Gm Tube) 1 applic TOPICAL BID [facility]; Protocol Last Admin: 06/28/20 21:15 Dose: 1 applicatio Documented by: Dexamethasone Sodium Phosphate (Dexamethasone 4 Mg/Ml Vial) 6 mg IV DAILY [facility] Stop: 07/05/20 10:01 Dextrose (Dextrose 50%-Water 25 Gm/50 Ml Disp.Syrin) 0 gm IV X1 PRN; Protocol PRN Reason: Hypoglycemia Enoxaparin Sodium (Enoxaparin 30 Mg/0.3 Ml Syringe) 30 mg SC BID [facility] Last Admin: 06/28/20 21:16 Dose: 30 mg Documented by: Glucagon (Glucagon 1 Mg/Ml Syringe) 1 mg IM .X1 PRN PRN Reason: Hypoglycemia Cefepime HCl 2 gm/ Sodium (Chloride) 100 mls @ 200 mls/hr IV Q12 [facility] Last Infusion: 06/28/20 21:47 Dose: Infused Documented by: Remdesivir 100 mg/ Sodium (Chloride) 250 mls @ 125 mls/hr IV DAILY [facility] Stop: 06/30/20 11:59 Last Infusion: 06/28/20 13:11 Dose: Infused Documented by: Insulin Glargine (Insulin Glargine 100 Units/Ml Pen) 30 units SC BID [facility] Last Admin: 06/28/20 21:16 Dose: Not Given Documented by: Insulin Human Lispro (Insulin Lispro 100 Unit/Ml Insuln.Pen) 0 unit SC Q4 [facility]; Protocol Last Admin: 06/29/20 05:13 Dose: 2 u Documented by: Ondansetron HCl (Ondansetron 4 Mg/2 Ml Vial) 4 mg IV Q8H PRN PRN PRN Reason: NAUSEA/VOMITING Rivastigmine (Rivastigmine 9.5mg Patch) 1 patch TD DAILY [facility] Last Admin: 06/28/20 09:38 Dose: 1 patch Documented by: Sodium Chloride (0.9% Saline Lock 10 Ml Syringe) 10 - 40 ml IV UD PRN PRN Reason: SALINE FLUSH Last Admin: 06/29/20 05:25 Dose: 20 ml Documented by: STROKE Vital Signs/Narrative: Vital Signs Temp Pulse Resp BP Pulse Ox 06/29/20 07:55 81 19 H 90 06/29/20 07:00 83 06/29/20 06:15 98.1 F 78 19 H 115/61 90 06/29/20 04:15 97.4 F L 82 25 H 125/65 H 99 Medical Necessity - Tobacco Use Smoking Status: Never smoker Assessment/Plan All Active Problems SARS (severe acute respiratory syndrome) (Acute) Sepsis (Acute) This is a 70 years old female patient presented to the emergency room because of fever, shortness of breath and change in mental status, found to have acute bilateral COVID-19 pneumonia, acute cystitis with sepsis complicated by acute hypoxic respiratory failure, found to have acute cystitis and acute kidney injury as well as encephalopathy. #1 acute bilateral COVID-19 pneumonia/sepsis: PCT was 4. ID consult reviewed. ID stop vancomycin. On dexamethasone, remdesivir and Lovenox. Continue cefepime. D-dimer 2.48. CT angiogram chest shows dense consolidation in the left lower lobe but no evidence of pulmonary embolism. Urine culture showed no growth. #2 acute hypoxic respiratory failure with 19 bilateral pneumonia. Currently, she is on airvo FiO2 of 90 %. she has been requiring more oxygen. Mild fever T-max 99.5 Fahrenheit. #3 acute kidney injury/mild hypernatremia: Due to dehydration and poor oral intake. K resolved. BUN 33, creatinine 0.59. Continue IV fluid as she had IV contrast to prevent LETA. #4 acute encephalopathy on baseline MRDD and cognitive impairment/mild dementia. Patient is incomprehensible. Apparently, she is confused, incoherent at baseline which may be worsened by acute infection with COVID-19. #5 type 2 diabetes mellitus: Blood sugar has been under fair control. She is on Lantus and sliding scale. #6 MRDD/cognitive impairment/dementia: Continue Exelon patch, supportive treatment. #7 bipolar disorder/depression: Depakote, Effexor and Zoloft because of encephalopathy. #8 CODE STATUS: DNR CCA, no intubation. #9 DVT prophylaxis: Subcu Lovenox twice daily. Clinical Impression(s) from Imaging Studies Chest X-Ray 06/26/20 01:00 IMPRESSION: There is compressive atelectasis in the left lung base. Ill-defined subpleural groundglass opacities are seen more prominent in the lung bases , may represent atypical pneumonia or viral pneumonia (COVID-19 ?). There is a small left pleural effusion. Chest CTA 06/29/20 10:05 IMPRESSION: Dense consolidation of the left lower lobe. There is no evidence of pulmonary embolism. Mild increased markings at the right lung base. Electronically Signed: Barrett Liu, at 11:17 EST , Service support , Inpatient E&M: 13950 Subs Hosp L2
[2020-06-29] MEDS: dexAMETHasone 4 MG/ML Vial 6 MG IV (08:29)
[2020-06-29] MEDS: Enoxaparin 30 MG/0.3 ML Syringe SC (08:29)
[2020-06-29] MEDS: Rivastigmine 9.5mg Patch 1 PATCH TD (08:29)
[2020-06-29] MEDS: Menthol/Lanolin/Calamine/Znox 113 GM Tube 1 APPLIC TOPICAL ×2 (08:30→22:50)
--- NOTE | 2020-06-29 10:05 | CT_ITS ---
STUDY: CTA CHEST REASON FOR EXAM: Female, 70 years old. SUSP PE, MRDD, HYPOXIA, BILAT COVID, SEPSIS RADIATION DOSAGE (If Supplied By Facility): CTDIvol = ( 11.92 ) mGy, DLP = ( 390.05 ) mGycm TECHNIQUE: The examination was performed with the intravenous administration of IV 75mL Isovue-370. Post-processing of the angiographic images was performed, with multiplanar reformation and 3D reconstruction. Individualized dose optimization techniques were used for this CT. COMPARISON: None. FINDINGS: Normal enhancement of the main pulmonary artery and right and left pulmonary arteries. Normal enhancement of the bilateral peripheral pulmonary arteries. There is no demonstrated pulmonary embolism. Normal thoracic aorta and visualized great vessels. There is no demonstrated aortic dissection. Normal heart and pericardium. Normal mediastinum. Normal hilar regions. Normal visualized trachea and bronchi. Volume loss in the left hemithorax. Dense consolidation of the left lower lobe. Minimal increased markings at the right lung base suggestive of atelectasis and/or early infiltrate. Minimal left pleural effusion. Normal chest wall structures. Normal osseous structures. Fatty infiltration of the liver. CT/CTA Chest W/WO Contrast IMPRESSION: Dense consolidation of the left lower lobe. There is no evidence of pulmonary embolism. Mild increased markings at the right lung base. Electronically Signed: Barrett Liu, at 11:17 EST , Service support ,
[2020-06-29 10:16] LABS: Bedside Glucose 180 mg/dL (70-110)
--- NOTE | 2020-06-29 10:18 | CASEMGMT ---
VIRGINIE called [facility] and left a message for Sophie letting her know patient is not returning today. VIRGINIE to continue to follow for d/c back to [facility]. Jesika HINOJOSA MSW
--- NOTE | 2020-06-29 10:40 | CPS ---
Transported pt on a BIPAP to CT scan, pt tolerated well.
[2020-06-29 14:30] LABS: Bedside Glucose 242 mg/dL (70-110)
[2020-06-29] MEDS: 0.9% Normal Saline 1,000 ML 50 ML IV (18:02)
[2020-06-29 20:36] LABS: Bedside Glucose 251 mg/dL (70-110)
[2020-06-29] MEDS: Enoxaparin 40 MG/0.4 ML Syringe SC (22:49)
[2020-06-29 23:06] LABS: Bedside Glucose 174 mg/dL (70-110)
[2020-06-30] VITALS (17 sets, daily range): BP systolic 116–138; BP diastolic 60–69; PULSE 72–108; RESP 18–30; TEMP 35.8–36.6; O2SAT 91–97
[2020-06-30] MEDS: Insulin Lispro 100 UNIT/ML INSULN.PEN SC ×6 (01:29→22:17)
[2020-06-30 01:41] LABS: Bedside Glucose 154 mg/dL (70-110)
[2020-06-30 06:09] LABS: Hematocrit 30.8 % (37-47); Mean Corp Hgb Conc 29.2 g/dL (32-36); Mean Corpuscular Hgb 30.5 pg (27.0-32.0); Mean Corpuscular Volume 104.4 fL (81-99); Mean Platelet Vol. 10.7 fl (6.2-12.0); Platelet Count 334 K/mm3 (150-450); RBC Distribution Width CV 15.2 % (11.6-14.6); RBC Distribution Width SD 58.2 fl (35.1-43.9); Red Blood Count 2.95 M/mm3 (4.2-5.4); White Blood Count 10.8 K/mm3 (4.4-11.0)
[2020-06-30 06:36] LABS: ALB/GLOB Ratio 0.5 RATIO (0.9-2.4); AST(SGOT) 60 U/L (15-37); Alanine Aminotransfer ALT/SGPT 43 U/L (13-56); Albumin, Serum 1.8 g/dL (3.2-5.0); Alkaline Phosphatase 73 U/L (45-117); Anion Gap 7 (5-15); BUN 26 mg/dL (7-18); BUN/Creat Ratio 48.9 RATIO (10-20); Calcium,Total 7.8 mg/dL (8.5-10.1); Chloride 125 mmol/L (98-107); Creatinine, Serum 0.53 mg/dL (0.55-1.02); EST Glomerular Filtration Rate 121 mL/min (>60); Est Glom Filt Rate - Afr Amer 147 mL/min (>60); Estimated Creatinine Clearance 50.41 ml/min; Globulin 3.9 g/dL (2.2-4.2); Glucose 161 mg/dL (74-106); Potassium 3.5 mmol/L (3.5-5.1); Protein, Total 5.7 g/dL (6.4-8.2); Sodium Level 155 mmol/L (136-145)
[2020-06-30 06:40] LABS: Bedside Glucose 166 mg/dL (70-110)
[2020-06-30] MEDS: dexAMETHasone 4 MG/ML Vial 6 MG IV (09:50)
[2020-06-30] MEDS: Enoxaparin 40 MG/0.4 ML Syringe SC ×2 (09:54→22:06)
[2020-06-30] MEDS: Rivastigmine 9.5mg Patch 1 PATCH TD (09:55)
[2020-06-30] MEDS: Menthol/Lanolin/Calamine/Znox 113 GM Tube 1 APPLIC TOPICAL ×2 (09:56→22:05)
--- NOTE | 2020-06-30 10:00 | CASEMGMT ---
VIRGINIE faxed updates to [facility] and wrote on fax face sheet that she is not ready for d/c yet. Jesika HINOJOSA INDUSTRIAL RELATIONS COUNSELOR
[2020-06-30 10:25] LABS: Bedside Glucose 169 mg/dL (70-110)
--- NOTE | 2020-06-30 13:44 | PCM.PN.PUL ---
Patient Problems: Active and Suspected Problems SARS (severe acute respiratory syndrome) (Acute) Sepsis (Acute) Subjective: The patient was seen and examined at the bedside this morning. Events from the last 24 hours have been reviewed. The patient is currently afebrile, hemodynamically stable and maintaining appropriate oxygen saturations on Airvo heated high flow with an FiO2 requirement of 88% and flow rate of 60 L/min. Sodium and chloride are both elevated this morning. The patient has completed her treatment course of remdesivir and remains on Decadron. Objective: The patient's most recent lab work, culture data and imaging studies have all been personally reviewed. - Physical Exam Vitals/I&O's: Vital Signs Temp Pulse Resp BP Pulse Ox 96.5 F L 75 28 H 116/63 96 06/30/20 13:00 06/30/20 13:00 06/30/20 13:00 06/30/20 13:00 06/30/20 13:00 Oxygen Flow Rate (L/min) 60 Oxygen Delivery Method Airvo Weight: 136 lb 0.015 oz Body Mass Index (BMI) 21.6 Finger Stick Blood Glucose 178 Intake and Output for Last 24 Hours 06/28/20 06/29/20 06/30/20 23:59 23:59 23:59 Intake Total 975 / 975 690 / 690 914.17 / 914.17 Output Total 1100 / 1250 800 / 800 975 / 975 Balance -125 / -275 -110 / -110 -60.83 / -60.83 General: Alert, Cooperative, Confused, Disoriented HEENT: Atraumatic, Normocephalic Oral: No Gingival or Mucosal Lesions/ Ulcerations Neck: Supple, No Nodes, Trachea Midline Lungs: Diminished Cardiovascular: Regular rate, Regular Rhythm Abdomen: Bowel Sounds Present, Soft, Non Tender Extremities: No clubbing, No cyanosis, No edema Skin: No breakdown Musculoskeletal: No Tenderness to Palpation of Joints or Extremities Lymphatic: No Cervical, Supraclavicular, or Inguinal Adenopathy Neurological: Cranial nerves II-XII grossly intact Labs (Last 48 Hours) 06/28/20 06/28/20 06/28/20 15:41 17:59 21:05 WBC RBC Hgb Hct MCV MCH MCHC RDW Std Deviation RDW Coeff of Kim Plt Count MPV D-Dimer Quant (PE/DVT) Sodium Potassium Chloride Carbon Dioxide Anion Gap BUN Creatinine Estim Creat Clear Calc Est GFR (MDRD) Af Amer Est GFR (MDRD) Non-Af BUN/Creatinine Ratio Glucose Calcium Total Bilirubin AST ALT Alkaline Phosphatase Total Protein Albumin Globulin Albumin/Globulin Ratio POC Glucose 266 H 223 H 82 06/28/20 06/29/20 06/29/20 23:19 03:10 05:08 WBC RBC Hgb Hct MCV MCH MCHC RDW Std Deviation RDW Coeff of Kim Plt Count MPV D-Dimer Quant (PE/DVT) Sodium Potassium Chloride Carbon Dioxide Anion Gap BUN Creatinine Estim Creat Clear Calc Est GFR (MDRD) Af Amer Est GFR (MDRD) Non-Af BUN/Creatinine Ratio Glucose Calcium Total Bilirubin AST ALT Alkaline Phosphatase Total Protein Albumin Globulin Albumin/Globulin Ratio POC Glucose 162 H 159 H 167 H 06/29/20 06/29/20 06/29/20 06:50 06:50 06:50 WBC 15.1 H RBC 3.24 L Hgb 9.7 L Hct 34.1 L MCV 105.2 H MCH 29.9 MCHC 28.4 L RDW Std Deviation 59.3 H RDW Coeff of Kim 14.9 H Plt Count 312 MPV 10.5 D-Dimer Quant (PE/DVT) 2.48 H* Sodium 155 H Potassium 3.5 Chloride 126 H Carbon Dioxide 23.0 Anion Gap 6 BUN 33 H Creatinine 0.59 Estim Creat Clear Calc 50.41 Est GFR (MDRD) Af Amer 131 Est GFR (MDRD) Non-Af 108 BUN/Creatinine Ratio 56.0 H Glucose 155 H Calcium 8.0 L Total Bilirubin 0.40 AST 70 H ALT 48 Alkaline Phosphatase 78 Total Protein 6.2 L Albumin 1.8 L Globulin 4.4 H Albumin/Globulin Ratio 0.4 L POC Glucose 06/29/20 06/29/20 06/29/20 10:06 14:23 17:50 WBC RBC Hgb Hct MCV MCH MCHC RDW Std Deviation RDW Coeff of Kim Plt Count MPV D-Dimer Quant (PE/DVT) Sodium Potassium Chloride Carbon Dioxide Anion Gap BUN Creatinine Estim Creat Clear Calc Est GFR (MDRD) Af Amer Est GFR (MDRD) Non-Af BUN/Creatinine Ratio Glucose Calcium Total Bilirubin AST ALT Alkaline Phosphatase Total Protein Albumin Globulin Albumin/Globulin Ratio POC Glucose 180 H 242 H 251 H 06/29/20 06/30/20 06/30/20 22:48 01:27 05:48 WBC 10.8 RBC 2.95 L Hgb 9.0 L Hct 30.8 L MCV 104.4 H MCH 30.5 MCHC 29.2 L RDW Std Deviation 58.2 H RDW Coeff of Kim 15.2 H Plt Count 334 MPV 10.7 D-Dimer Quant (PE/DVT) Sodium Potassium Chloride Carbon Dioxide Anion Gap BUN Creatinine Estim Creat Clear Calc Est GFR (MDRD) Af Amer Est GFR (MDRD) Non-Af BUN/Creatinine Ratio Glucose Calcium Total Bilirubin AST ALT Alkaline Phosphatase Total Protein Albumin Globulin Albumin/Globulin Ratio POC Glucose 174 H 154 H 06/30/20 06/30/20 06/30/20 05:48 06:25 09:53 WBC RBC Hgb Hct MCV MCH MCHC RDW Std Deviation RDW Coeff of Kim Plt Count MPV D-Dimer Quant (PE/DVT) Sodium 155 H Potassium 3.5 Chloride 125 H Carbon Dioxide 23.0 Anion Gap 7 BUN 26 H Creatinine 0.53 L Estim Creat Clear Calc 50.41 Est GFR (MDRD) Af Amer 147 Est GFR (MDRD) Non-Af 121 BUN/Creatinine Ratio 48.9 H Glucose 161 H Calcium 7.8 L Total Bilirubin 0.50 AST 60 H ALT 43 Alkaline Phosphatase 73 Total Protein 5.7 L Albumin 1.8 L Globulin 3.9 Albumin/Globulin Ratio 0.5 L POC Glucose 166 H 169 H Microbiology 06/26/20 00:30 Urine Catheter - Catheter Urine Culture - Final Culture exhibits no growth. 06/26/20 00:25 Blood Culture (Wb) - Right Forearm Blood Culture - Preliminary No growth in 48 hours. 06/26/20 00:05 Blood Culture (Wb) - Left Forearm Blood Culture - Preliminary No growth in 48 hours. Clinical Impression(s) from Imaging Studies Chest X-Ray 06/26/20 01:00 IMPRESSION: There is compressive atelectasis in the left lung base. Ill-defined subpleural groundglass opacities are seen more prominent in the lung bases , may represent atypical pneumonia or viral pneumonia (COVID-19 ?). There is a small left pleural effusion. Electronically Signed: Naa Collins, at 1:31 EST Tel , Service support , Chest CTA 06/29/20 10:05 IMPRESSION: Dense consolidation of the left lower lobe. There is no evidence of pulmonary embolism. Mild increased markings at the right lung base. Electronically Signed: Barrett Liu, at 11:17 EST , Service support , Current Medications Acetaminophen (Acetaminophen 650 Mg Suppository) 650 mg RECTAL Q4H PRN PRN PRN Reason: Pain Score 1-10/Temp > 100.7 F Last Admin: 06/27/20 12:48 Dose: 650 mg Documented by: Calamine/Phenol (Menthol/Lanolin/Calamine/Znox 113 Gm Tube) 1 applic TOPICAL BID [facility]; Protocol Last Admin: 06/30/20 09:56 Dose: 1 applicatio Documented by: Dexamethasone Sodium Phosphate (Dexamethasone 4 Mg/Ml Vial) 6 mg IV DAILY [facility] Stop: 07/05/20 10:01 Last Admin: 06/30/20 09:50 Dose: 6 mg Documented by: Dextrose (Dextrose 50%-Water 25 Gm/50 Ml Disp.Syrin) 0 gm IV X1 PRN; Protocol PRN Reason: Hypoglycemia Enoxaparin Sodium (Enoxaparin 40 Mg/0.4 Ml Syringe) 40 mg SC BID [facility] Last Admin: 06/30/20 09:54 Dose: 40 mg Documented by: Glucagon (Glucagon 1 Mg/Ml Syringe) 1 mg IM .X1 PRN PRN Reason: Hypoglycemia Cefepime HCl 2 gm/ Sodium (Chloride) 100 mls @ 200 mls/hr IV Q12 [facility] Last Infusion: 06/30/20 11:18 Dose: Infused Documented by: Insulin Glargine (Insulin Glargine 100 Units/Ml Pen) 30 units SC BID [facility] Last Admin: 06/30/20 09:56 Dose: Not Given Documented by: Insulin Human Lispro (Insulin Lispro 100 Unit/Ml Insuln.Pen) 0 unit SC Q4 [facility]; Protocol Last Admin: 06/30/20 09:53 Dose: 2 u Documented by: Ondansetron HCl (Ondansetron 4 Mg/2 Ml Vial) 4 mg IV Q8H PRN PRN PRN Reason: NAUSEA/VOMITING Rivastigmine (Rivastigmine 9.5mg Patch) 1 patch TD DAILY [facility] Last Admin: 06/30/20 09:55 Dose: 1 patch Documented by: Sodium Chloride (0.9% Saline Lock 10 Ml Syringe) 10 - 40 ml IV UD PRN PRN Reason: SALINE FLUSH Last Admin: 06/29/20 05:25 Dose: 20 ml Documented by: Medical Necessity - Tobacco Use Smoking Status: Never smoker Assessment/Plan All Active Problems SARS (severe acute respiratory syndrome) (Acute) Sepsis (Acute) RECOMMENDATIONS: 1. Continue to wean FiO2 to maintain oxygen saturations at or above 90%. 2. Continue antimicrobials per ID recommendations. 3. Continue Lovenox as ordered. 4. Continue Decadron to complete treatment course. 5. Encourage incentive spirometer use. 6. Attempt diuresis with IV Lasix today. IMPRESSIONS: 1. Acute hypoxemic respiratory failure secondary to COVID-19 pneumonia The patient continues to have significant oxygen requirements. She has completed her treatment courses of remdesivir and remains on Decadron. Antimicrobials are being managed by infectious diseases. At this time, we will make an attempt at gentle diuresis with IV Lasix. Continue to wean supplemental oxygen as tolerated to maintain saturations at or above 90%. 2. Diabetes mellitus/baseline MRDD/hyperlipidemia Complicates care, management, recovery and prognosis. Continue Lantus and sliding scale insulin coverage. This note was generated with [employer] dictation software. It may contain incorrect words, spelling, and punctuation that were not noted in checking the note before signing. Inpatient E&M: [id number] [facility] L3
[2020-06-30] MEDS: Furosemide 40 MG/4 ML Vial IV (14:16)
--- NOTE | 2020-06-30 15:56 | PN_ITS ---
Patient Problems: Active and Suspected Problems SARS (severe acute respiratory syndrome) (Acute) Sepsis (Acute) Reason for Visit: Follow-up for COVID-19 pneumonia and acute hypoxic respiratory failure. Objective: Limited history as patient has cognitive deficit secondary to MRDD and has dementia. Limited comprehension ability Patient still short of breath but looks better than yesterday. On AIR VO. Physical exam General: Awake, cooperative. Orientation cannot be assessed. Patient did not answer simple questions. HEENT: Atraumatic, PERRLA, EOMI, Normocephalic Oral: No Gingival or Mucosal Lesions/ Ulcerations Neck: Supple, No JVD, Negative Carotid Bruits Lungs: Air entry diminished in bilateral lung bases. On high flow oxygen. Tachypneic. No crepitation/rhonchi Cardiovascular: Regular rate, Regular Rhythm, Normal S1, Normal S2, No murmurs Abdomen: Bowel Sounds Present, Soft, Non Tender, Non-Distended : No renal angle tenderness. No suprapubic tenderness. Extremities: No edema, Capillary Refill Less than 3 Seconds Skin: No rashes, No breakdown Musculoskeletal: No Tenderness to Palpation of Joints or Extremities Neurological: Cranial nerves II-XII grossly intact, Deep Tendon Reflexes 2+/4 and Symmetrical, Neuro grossly intact Psych/Mental Status: Cognitive deficit/dementia, MRDD. Vitals/I&O's: Vital Signs Temp Pulse Resp BP Pulse Ox 97.7 F L 83 25 H 123/61 H 92 06/30/20 14:14 06/30/20 15:00 06/30/20 15:00 06/30/20 14:14 06/30/20 15:00 Oxygen Flow Rate (L/min) 60 Oxygen Delivery Method Airvo Weight: 136 lb 0.015 oz Body Mass Index (BMI) 21.6 Finger Stick Blood Glucose 178 Intake and Output for Last 24 Hours 06/28/20 06/29/20 06/30/20 23:59 23:59 23:59 Intake Total 975 / 975 690 / 690 914.17 / 914.17 Output Total 1100 / 1250 800 / 800 975 / 975 Balance -125 / -275 -110 / -110 -60.83 / -60.83 Microbiology Past 72 Hours 06/26/20 00:30 Urine Catheter - Catheter Urine Culture - Final Culture exhibits no growth. 12/12/20 00:25 Blood Culture (Wb) - Right Forearm Blood Culture - Preliminary No growth in 48 hours. 06/26/20 00:05 Blood Culture (Wb) - Left Forearm Blood Culture - Preliminary No growth in 48 hours. Laboratory Results 06/29/20 17:50: POC Glucose 251 H 06/29/20 22:48: POC Glucose 174 H 06/30/20 01:27: POC Glucose 154 H 06/30/20 05:48: WBC 10.8, RBC 2.95 L, Hgb 9.0 L, Hct 30.8 L, MCV 104.4 H, MCH 30.5, MCHC 29.2 L, RDW Std Deviation 58.2 H, RDW Coeff of Kim 15.2 H, Plt Count 334, MPV 10.7 06/30/20 05:48: Sodium 155 H, Potassium 3.5, Chloride 125 H, Carbon Dioxide 23.0, Anion Gap 7, BUN 26 H, Creatinine 0.53 L, Estim Creat Clear Calc 50.41, Est GFR (MDRD) Af Amer 147, Est GFR (MDRD) Non-Af 121, BUN/Creatinine Ratio 48.9 H, Glucose 161 H, Calcium 7.8 L, Total Bilirubin 0.50, AST 60 H, ALT 43, Alkaline Phosphatase 73, Total Protein 5.7 L, Albumin 1.8 L, Globulin 3.9, Albumin/Globulin Ratio 0.5 L 06/30/20 06:25: POC Glucose 166 H 06/30/20 09:53: POC Glucose 169 H Current Medications Acetaminophen (Acetaminophen 650 Mg Suppository) 650 mg RECTAL Q4H PRN PRN PRN Reason: Pain Score 1-10/Temp > 100.7 F Last Admin: 06/27/20 12:48 Dose: 650 mg Documented by: Calamine/Phenol (Menthol/Lanolin/Calamine/Znox 113 Gm Tube) 1 applic TOPICAL BID [facility]; Protocol Last Admin: 06/30/20 09:56 Dose: 1 applicatio Documented by: Dexamethasone Sodium Phosphate (Dexamethasone 4 Mg/Ml Vial) 6 mg IV DAILY [facility] Stop: 07/05/20 10:01 Last Admin: 06/30/20 09:50 Dose: 6 mg Documented by: Dextrose (Dextrose 50%-Water 25 Gm/50 Ml Disp.Syrin) 0 gm IV X1 PRN; Protocol PRN Reason: Hypoglycemia Enoxaparin Sodium (Enoxaparin 40 Mg/0.4 Ml Syringe) 40 mg SC BID REPLACED BY [facility] Last Admin: 06/30/20 09:54 Dose: 40 mg Documented by: Glucagon (Glucagon 1 Mg/Ml Syringe) 1 mg IM .X1 PRN PRN Reason: Hypoglycemia Cefepime HCl 2 gm/ Sodium (Chloride) 100 mls @ 200 mls/hr IV Q12 REPLACED BY [facility] Last Infusion: 06/30/20 11:18 Dose: Infused Documented by: Insulin Glargine (Insulin Glargine 100 Units/Ml Pen) 30 units SC BID REPLACED BY [facility] Last Admin: 06/30/20 09:56 Dose: Not Given Documented by: Insulin Human Lispro (Insulin Lispro 100 Unit/Ml Insuln.Pen) 0 unit SC Q4 REPLACED BY [facility]; Protocol Last Admin: 06/30/20 14:18 Dose: 6 u Documented by: Ondansetron HCl (Ondansetron 4 Mg/2 Ml Vial) 4 mg IV Q8H PRN PRN PRN Reason: NAUSEA/VOMITING Rivastigmine (Rivastigmine 9.5mg Patch) 1 patch TD DAILY REPLACED BY [facility] Last Admin: 06/30/20 09:55 Dose: 1 patch Documented by: Sodium Chloride (0.9% Saline Lock 10 Ml Syringe) 10 - 40 ml IV UD PRN PRN Reason: SALINE FLUSH Last Admin: 06/29/20 05:25 Dose: 20 ml Documented by: STROKE Vital Signs/Narrative: Vital Signs Temp Pulse Resp BP Pulse Ox 06/30/20 15:00 83 25 H 92 06/30/20 14:14 97.7 F L 76 26 H 123/61 H 92 06/30/20 13:00 96.5 F L 75 28 H 116/63 96 Medical Necessity - Tobacco Use Smoking Status: Never smoker Assessment/Plan All Active Problems SARS (severe acute respiratory syndrome) (Acute) Sepsis (Acute) This is a 70 years old female patient presented to the emergency room because of fever, shortness of breath and change in mental status, found to have acute bilateral COVID-19 pneumonia, acute cystitis with sepsis complicated by acute hypoxic respiratory failure, found to have acute cystitis and acute kidney injury as well as encephalopathy. #1 acute bilateral COVID-19 pneumonia/sepsis: PCT was 4. ID consult reviewed. ID stop vancomycin. On dexamethasone, remdesivir and Lovenox. Continue cefepime. D-dimer 2.48. CT angiogram chest shows dense consolidation in the left lower lobe but no evidence of pulmonary embolism. Urine culture showed no growth. 06/30: Continue treatment. Patient on cefepime. Seen by poacher operator. #2 acute hypoxic respiratory failure with 19 bilateral pneumonia. Currently, she is on airvo FiO2 of 90 %. she has been requiring more oxygen. Mild fever T-max 99.5 Fahrenheit. 06/30: Discussed with the respiratory therapist. On 87% FiO2 to maintain pulse ox 92%. #3 acute kidney injury/mild hypernatremia: Due to dehydration and poor oral intake. K resolved. BUN 33, creatinine 0.59. Continue IV fluid as she had IV contrast to prevent LETA. 06/30: IV fluid discontinued. #4 acute encephalopathy on baseline MRDD and cognitive impairment/mild dementia. Patient is incomprehensible. Apparently, she is confused, incoherent at baseline which may be worsened by acute infection with COVID-19. #5 type 2 diabetes mellitus: Blood sugar has been under fair control. She is on Lantus and sliding scale. 16: Glucose is controlled #6 MRDD/cognitive impairment/dementia: Continue Exelon patch, supportive treatment. #7 bipolar disorder/depression: Depakote, Effexor and Zoloft because of encephalopathy. #8 CODE STATUS: DNR CCA, no intubation. #9 DVT prophylaxis: Subcu Lovenox twice daily. Clinical Impression(s) from Imaging Studies Chest X-Ray 06/26/20 01:00 IMPRESSION: There is compressive atelectasis in the left lung base. Ill-defined subpleural groundglass opacities are seen more prominent in the lung bases , may represent atypical pneumonia or viral pneumonia (COVID-19 ?). There is a small left pleural effusion. Chest CTA 06/29/20 10:05 IMPRESSION: Dense consolidation of the left lower lobe. There is no evidence of pulmonary embolism. Mild increased markings at the right lung base. Electronically Signed: Barrett Liu, at 11:17 EST , Service support , Inpatient E&M: [id number] Subs Hosp L2
--- NOTE | 2020-06-30 16:16 | PCM.PN.ID ---
Patient Problems: Active and Suspected Problems SARS (severe acute respiratory syndrome) (Acute) Sepsis (Acute) Subjective: Confused, unintelligible speech - Physical Exam Vitals/I&O's: Vital Signs Temp Pulse Resp BP Pulse Ox 97.7 F L 83 25 H 123/61 H 92 06/30/20 14:14 06/30/20 15:00 06/30/20 15:00 06/30/20 14:14 06/30/20 15:00 Oxygen Flow Rate (L/min) 60 Oxygen Delivery Method Airvo Weight: 61.689 kg Body Mass Index (BMI) 21.6 Finger Stick Blood Glucose 178 Intake and Output for Last 24 Hours 06/28/20 06/29/20 06/30/20 23:59 23:59 23:59 Intake Total 975 / 975 690 / 690 914.17 / 914.17 Output Total 1100 / 1250 800 / 800 975 / 975 Balance -125 / -275 -110 / -110 -60.83 / -60.83 General: No apparent distress, Confused Lungs: Diminished Cardiovascular: Regular rate, Regular Rhythm Abdomen: Soft, Non Tender, Non-Distended Skin: No rashes Microbiology Past 72 Hours 06/26/20 00:30 Urine Catheter - Catheter Urine Culture - Final Culture exhibits no growth. 06/26/20 00:25 Blood Culture (Wb) - Right Forearm Blood Culture - Preliminary No growth in 48 hours. 06/26/20 00:05 Blood Culture (Wb) - Left Forearm Blood Culture - Preliminary No growth in 48 hours. Laboratory Results 06/29/20 17:50: POC Glucose 251 H 06/29/20 22:48: POC Glucose 174 H 06/30/20 01:27: POC Glucose 154 H 06/30/20 05:48: WBC 10.8, RBC 2.95 L, Hgb 9.0 L, Hct 30.8 L, MCV 104.4 H, MCH 30.5, MCHC 29.2 L, RDW Std Deviation 58.2 H, RDW Coeff of Kim 15.2 H, Plt Count 334, MPV 10.7 06/30/20 05:48: Sodium 155 H, Potassium 3.5, Chloride 125 H, Carbon Dioxide 23.0, Anion Gap 7, BUN 26 H, Creatinine 0.53 L, Estim Creat Clear Calc 50.41, Est GFR (MDRD) Af Amer 147, Est GFR (MDRD) Non-Af 121, BUN/Creatinine Ratio 48.9 H, Glucose 161 H, Calcium 7.8 L, Total Bilirubin 0.50, AST 60 H, ALT 43, Alkaline Phosphatase 73, Total Protein 5.7 L, Albumin 1.8 L, Globulin 3.9, Albumin/Globulin Ratio 0.5 L 06/30/20 06:25: POC Glucose 166 H 06/30/20 09:53: POC Glucose 169 H Current Medications Acetaminophen (Acetaminophen 650 Mg Suppository) 650 mg RECTAL Q4H PRN PRN PRN Reason: Pain Score 1-10/Temp > 100.7 F Last Admin: 06/27/20 12:48 Dose: 650 mg Documented by: Calamine/Phenol (Menthol/Lanolin/Calamine/Znox 113 Gm Tube) 1 applic TOPICAL BID [facility]; Protocol Last Admin: 06/30/20 09:56 Dose: 1 applicatio Documented by: Dexamethasone Sodium Phosphate (Dexamethasone 4 Mg/Ml Vial) 6 mg IV DAILY [facility] Stop: 07/05/20 10:01 Last Admin: 06/30/20 09:50 Dose: 6 mg Documented by: Dextrose (Dextrose 50%-Water 25 Gm/50 Ml Disp.Syrin) 0 gm IV X1 PRN; Protocol PRN Reason: Hypoglycemia Enoxaparin Sodium (Enoxaparin 40 Mg/0.4 Ml Syringe) 40 mg SC BID [facility] Last Admin: 06/30/20 09:54 Dose: 40 mg Documented by: Glucagon (Glucagon 1 Mg/Ml Syringe) 1 mg IM .X1 PRN PRN Reason: Hypoglycemia Cefepime HCl 2 gm/ Sodium (Chloride) 100 mls @ 200 mls/hr IV Q12 [facility] Last Infusion: 06/30/20 11:18 Dose: Infused Documented by: Insulin Glargine (Insulin Glargine 100 Units/Ml Pen) 30 units SC BID [facility] Last Admin: 06/30/20 09:56 Dose: Not Given Documented by: Insulin Human Lispro (Insulin Lispro 100 Unit/Ml Insuln.Pen) 0 unit SC Q4 [facility]; Protocol Last Admin: 06/30/20 14:18 Dose: 6 u Documented by: Ondansetron HCl (Ondansetron 4 Mg/2 Ml Vial) 4 mg IV Q8H PRN PRN PRN Reason: NAUSEA/VOMITING Rivastigmine (Rivastigmine 9.5mg Patch) 1 patch TD DAILY [facility] Last Admin: 06/30/20 09:55 Dose: 1 patch Documented by: Sodium Chloride (0.9% Saline Lock 10 Ml Syringe) 10 - 40 ml IV UD PRN PRN Reason: SALINE FLUSH Last Admin: 06/29/20 05:25 Dose: 20 ml Documented by: Medical Necessity - Tobacco Use Smoking Status: Never smoker Route of nutrition/ use of supplements: [] Nutritional Intake: [] IV Site: [] Culp Catheter: [] - Assessment/Plan Antibiotics: [] Assessment/Plan: [] Active and Suspected Problems SARS (severe acute respiratory syndrome) (Acute) Sepsis (Acute) covid with hypoxia, encephalopathy, persistent fever - on empiric cefepime. Cxs neg so far, PCT was 4. On dex, lovenox 30mg bid. Completed remdesivir. CTA showed no PE but dense infiltrate. On airvo. Will check trop, BNP, PCT. Will follow
[2020-06-30 17:00] LABS: Bedside Glucose 272 mg/dL (70-110)
[2020-06-30 20:40] LABS: Bedside Glucose 276 mg/dL (70-110)
[2020-06-30 22:36] LABS: Bedside Glucose 167 mg/dL (70-110)
[2020-07-01] VITALS (19 sets, daily range): BP systolic 107–135; BP diastolic 65–74; PULSE 77–102; RESP 12–36; TEMP 36.2–36.8; O2SAT 92–98
[2020-07-01] MEDS: Insulin Lispro 100 UNIT/ML INSULN.PEN SC ×6 (02:20→22:12)
[2020-07-01 02:31] LABS: Bedside Glucose 164 mg/dL (70-110)
[2020-07-01 06:45] LABS: Bedside Glucose 183 mg/dL (70-110)
[2020-07-01 07:45] LABS: Hematocrit 32.1 % (37-47); Hemoglobin 9.6 g/dL (12.0-15.0); Mean Corp Hgb Conc 29.9 g/dL (32-36); Mean Corpuscular Hgb 30.4 pg (27.0-32.0); Mean Corpuscular Volume 101.6 fL (81-99); Mean Platelet Vol. 10.7 fl (6.2-12.0); Platelet Count 343 K/mm3 (150-450); RBC Distribution Width CV 15.1 % (11.6-14.6); RBC Distribution Width SD 56.3 fl (35.1-43.9); Red Blood Count 3.16 M/mm3 (4.2-5.4); White Blood Count 12.5 K/mm3 (4.4-11.0)
[2020-07-01 08:20] LABS: ALB/GLOB Ratio 0.6 RATIO (0.9-2.4); AST(SGOT) 53 U/L (15-37); Alanine Aminotransfer ALT/SGPT 41 U/L (13-56); Albumin, Serum 2.1 g/dL (3.2-5.0); Alkaline Phosphatase 79 U/L (45-117); Anion Gap 11 (5-15); BUN 32 mg/dL (7-18); BUN/Creat Ratio 51.8 RATIO (10-20); Calcium,Total 7.8 mg/dL (8.5-10.1); Chloride 116 mmol/L (98-107); Creatinine, Serum 0.62 mg/dL (0.55-1.02); EST Glomerular Filtration Rate 102 mL/min (>60); Est Glom Filt Rate - Afr Amer 124 mL/min (>60); Estimated Creatinine Clearance 50.41 ml/min; Globulin 3.4 g/dL (2.2-4.2); Glucose 188 mg/dL (74-106); Potassium 3.7 mmol/L (3.5-5.1); Protein, Total 5.5 g/dL (6.4-8.2); Sodium Level 152 mmol/L (136-145)
[2020-07-01 08:26] LABS: BNP,B-Type NATRIURETIC PEPTIDE 47.1 pg/mL (0-100)
[2020-07-01 08:33] LABS: Procalcitonin 0.16 ng/mL (0.00-0.09)
[2020-07-01] MEDS: Menthol/Lanolin/Calamine/Znox 113 GM Tube 1 APPLIC TOPICAL ×2 (09:50→20:19)
[2020-07-01] MEDS: Rivastigmine 9.5mg Patch 1 PATCH TD (09:51)
[2020-07-01] MEDS: dexAMETHasone 4 MG/ML Vial 6 MG IV (09:54)
[2020-07-01] MEDS: Enoxaparin 40 MG/0.4 ML Syringe SC ×2 (09:56→20:20)
[2020-07-01 10:30] LABS: Bedside Glucose 209 mg/dL (70-110)
[2020-07-01] MEDS: Acetylcysteine 800 MG/4 ML VIAL.NEB. INHALATION ×2 (10:59→20:04)
[2020-07-01] MEDS: Ipratropium/Albuterol Sulfate 3 ML AMPUL.NEB INHALATION ×2 (10:59→20:04)
[2020-07-01] MEDS: Furosemide 40 MG/4 ML Vial IV (12:25)
[2020-07-01] MEDS: 0.9% Saline Lock 10 ML Syringe IV ×3 (12:26→22:11)
[2020-07-01 14:51] LABS: Bedside Glucose 276 mg/dL (70-110)
--- NOTE | 2020-07-01 15:24 | CASEMGMT ---
Updated clinicals faxed to [place]. Jesika HINOJOSA WASH HOUSE SUPERVISOR
--- NOTE | 2020-07-01 16:08 | PN_ITS ---
Patient Problems: Active and Suspected Problems SARS (severe acute respiratory syndrome) (Acute) Sepsis (Acute) Objective: Patient was found in respiratory distress in the morning. Patient was desaturating pulse ox 82% on maximal airflow and therefore put on BiPAP. Patient was tachypneic respiratory rate 24-36/min. DuoNeb was given. Discussed with respiratory therapist Physical exam General: In respiratory distress. Patient is noncommunicative, hardly reaches few words. HEENT: Atraumatic, PERRLA, EOMI, Normocephalic Oral: No Gingival or Mucosal Lesions/ Ulcerations Neck: Supple, No JVD, Negative Carotid Bruits Lungs: Air entry diminished in bilateral lung bases. Bilateral coarse crepitation and rhonchi. Tachypneic and hypoxic. Cardiovascular: Regular rate, Regular Rhythm, Normal S1, Normal S2, No murmurs Abdomen: Bowel Sounds Present, Soft, Non Tender, Non-Distended : No renal angle tenderness. No suprapubic tenderness. Extremities: No edema, Capillary Refill Less than 3 Seconds Skin: No rashes, No breakdown Musculoskeletal: No Tenderness to Palpation of Joints or Extremities Neurological: Cranial nerves II-XII grossly intact, Deep Tendon Reflexes 2+/4 and Symmetrical, Neuro grossly intact Psych/Mental Status: Cognitive deficit/dementia, MRDD. Vitals/I&O's: Vital Signs Temp Pulse Resp BP Pulse Ox 98.2 F 86 22 H 124/74 H 95 07/01/20 14:45 07/01/20 15:00 07/01/20 14:45 07/01/20 14:45 07/01/20 14:45 Oxygen Flow Rate (L/min) 60 Oxygen Delivery Method Bi-pap Weight: 136 lb 0.015 oz Body Mass Index (BMI) 21.6 Finger Stick Blood Glucose 178 Intake and Output for Last 24 Hours 06/29/20 06/30/20 07/01/20 23:59 23:59 23:59 Intake Total 690 / 690 1178.34 / 1178.34 100 / 100 Output Total 800 / 800 2675 / 2875 325 / 325 Balance -110 / -110 -1496.66 / -1696.66 -225 / -225 Microbiology Past 72 Hours 06/26/20 00:05 Blood Culture (Wb) - Left Forearm Blood Culture - Final No growth in 5 days. 06/26/20 00:25 Blood Culture (Wb) - Right Forearm Blood Culture - Final No growth in 5 days. 06/26/20 00:30 Urine Catheter - Catheter Urine Culture - Final Culture exhibits no growth. Laboratory Results 06/30/20 14:18: POC Glucose 272 H 06/30/20 18:05: POC Glucose 276 H 06/30/20 22:16: POC Glucose 167 H 07/01/20 02:20: POC Glucose 164 H 07/01/20 05:48: POC Glucose 183 H 07/01/20 07:20: WBC 12.5 H, RBC 3.16 L, Hgb 9.6 L, Hct 32.1 L, MCV 101.6 H, MCH 30.4, MCHC 29.9 L, RDW Std Deviation 56.3 H, RDW Coeff of Kim 15.1 H, Plt Count 343, MPV 10.7 07/01/20 07:20: Sodium 152 H, Potassium 3.7, Chloride 116 H, Carbon Dioxide 25.0, Anion Gap 11, BUN 32 H, Creatinine 0.62, Estim Creat Clear Calc 50.41, Est GFR (MDRD) Af Amer 124, Est GFR (MDRD) Non-Af 102, BUN/Creatinine Ratio 51.8 H, Glucose 188 H, Calcium 7.8 L, Total Bilirubin 0.50, AST 53 H, ALT 41, Alkaline Phosphatase 79, Troponin I < 0.015, Total Protein 5.5 L, Albumin 2.1 L, Globulin 3.4, Albumin/Globulin Ratio 0.6 L 07/01/20 07:20: B-Natriuretic Peptide 47.1 07/01/20 07:20: Procalcitonin 0.16 H 07/01/20 09:48: POC Glucose 209 H 07/01/20 14:38: POC Glucose 276 H Current Medications Acetaminophen (Acetaminophen 650 Mg Suppository) 650 mg RECTAL Q4H PRN PRN PRN Reason: Pain Score 1-10/Temp > 100.7 F Last Admin: 06/27/20 12:48 Dose: 650 mg Documented by: Acetylcysteine (Acetylcysteine 800 Mg/4 Ml Vial.Neb.) 800 mg INHALATION Q6H.RT [facility] Last Admin: 07/01/20 10:59 Dose: 800 mg Documented by: Albuterol/Ipratropium (Ipratropium/Albuterol Sulfate 3 Ml Ampul.Neb) 3 ml INHALATION Q6H.RT [facility] Last Admin: 07/01/20 10:59 Dose: 3 ml Documented by: Calamine/Phenol (Menthol/Lanolin/Calamine/Znox 113 Gm Tube) 1 applic TOPICAL BID [facility]; Protocol Last Admin: 07/01/20 09:50 Dose: 1 applicatio Documented by: Dexamethasone Sodium Phosphate (Dexamethasone 4 Mg/Ml Vial) 6 mg IV DAILY [facility] Stop: 07/05/20 10:01 Last Admin: 07/01/20 09:54 Dose: 6 mg Documented by: Dextrose (Dextrose 50%-Water 25 Gm/50 Ml Disp.Syrin) 0 gm IV X1 PRN; Protocol PRN Reason: Hypoglycemia Enoxaparin Sodium (Enoxaparin 40 Mg/0.4 Ml Syringe) 40 mg SC BID [facility] Last Admin: 07/01/20 09:56 Dose: 40 mg Documented by: Glucagon (Glucagon 1 Mg/Ml Syringe) 1 mg IM .X1 PRN PRN Reason: Hypoglycemia Cefepime HCl 2 gm/ Sodium (Chloride) 100 mls @ 200 mls/hr IV Q12 [facility] Last Infusion: 07/01/20 10:27 Dose: Infused Documented by: Insulin Glargine (Insulin Glargine 100 Units/Ml Pen) 30 units SC BID [facility] Last Admin: 07/01/20 09:57 Dose: Not Given Documented by: Insulin Human Lispro (Insulin Lispro 100 Unit/Ml Insuln.Pen) 0 unit SC Q4 [facility]; Protocol Last Admin: 07/01/20 14:41 Dose: 6 u Documented by: Ondansetron HCl (Ondansetron 4 Mg/2 Ml Vial) 4 mg IV Q8H PRN PRN PRN Reason: NAUSEA/VOMITING Rivastigmine (Rivastigmine 9.5mg Patch) 1 patch TD DAILY [facility] Last Admin: 07/01/20 09:51 Dose: 1 patch Documented by: Sodium Chloride (0.9% Saline Lock 10 Ml Syringe) 10 - 40 ml IV UD PRN PRN Reason: SALINE FLUSH Last Admin: 07/01/20 12:26 Dose: 10 ml Documented by: STROKE Vital Signs/Narrative: Vital Signs Temp Pulse Resp BP Pulse Ox 07/01/20 15:00 86 07/01/20 14:45 98.2 F 95 22 H 124/74 H 95 07/01/20 14:42 102 H 23 H 98 Medical Necessity - Tobacco Use Smoking Status: Never smoker Assessment/Plan All Active Problems SARS (severe acute respiratory syndrome) (Acute) Sepsis (Acute) This is a 70 years old female patient presented to the emergency room because of fever, shortness of breath and change in mental status, found to have acute bilateral COVID-19 pneumonia, acute cystitis with sepsis complicated by acute hypoxic respiratory failure, found to have acute cystitis and acute kidney injury as well as encephalopathy. #1 acute bilateral COVID-19 pneumonia/sepsis: PCT was 4. ID consult reviewed. ID stop vancomycin. On dexamethasone, remdesivir and Lovenox. Continue cefepime. D-dimer 2.48. CT angiogram chest shows dense consolidation in the left lower lobe but no evidence of pulmonary embolism. Urine culture showed no growth. 06/30: Continue treatment. Patient on cefepime. Seen by assembler fluorescent lights. 07/01: Continue above treatment. #2 acute hypoxic respiratory failure with 19 bilateral pneumonia. Currently, she is on airvo FiO2 of 90 %. she has been requiring more oxygen. Mild fever T-max 99.5 Fahrenheit. 06/30: Discussed with the respiratory therapist. On 87% FiO2 to maintain pulse ox 92%. 07/01: Started on BiPAP. DuoNeb with Mucomyst inhalation. Lasix 40 mg IV 1 dose given. #3 acute kidney injury/mild hypernatremia: Due to dehydration and poor oral intake. K resolved. BUN 33, creatinine 0.59. Continue IV fluid as she had IV contrast to prevent LETA. 06/30: IV fluid discontinued. #4 acute encephalopathy on baseline MRDD and cognitive impairment/mild dementia. Patient is incomprehensible. Apparently, she is confused, incoherent at baseline which may be worsened by acute infection with COVID-19. #5 type 2 diabetes mellitus: Blood sugar has been under fair control. She is on Lantus and sliding scale. 07/01: Glucose is elevated. Currently patient is n.p.o. Accu-Cheks with sliding scale. #6 MRDD/cognitive impairment/dementia: Continue Exelon patch, supportive treatment. #7 bipolar disorder/depression: Depakote, Effexor and Zoloft because of encephalopathy. #8 CODE STATUS: DNR CCA, no intubation. #9 DVT prophylaxis: Subcu Lovenox twice daily. Clinical Impression(s) from Imaging Studies Chest X-Ray 06/26/20 01:00 IMPRESSION: There is compressive atelectasis in the left lung base. Ill-defined subpleural groundglass opacities are seen more prominent in the lung bases , may represent atypical pneumonia or viral pneumonia (COVID-19 ?). There is a small left pleural effusion. Chest CTA 06/29/20 10:05 IMPRESSION: Dense consolidation of the left lower lobe. There is no evidence of pulmonary embolism. Mild increased markings at the right lung base. Electronically Signed: Barrett Liu, at 11:17 EST , Service support , Inpatient E&M: [id number] Subs Hosp L2
[2020-07-01 19:21] LABS: Bedside Glucose 266 mg/dL (70-110)
[2020-07-01 22:20] LABS: Bedside Glucose 214 mg/dL (70-110)
[2020-07-02] VITALS (20 sets, daily range): BP systolic 101–122; BP diastolic 63–79; PULSE 102–115; RESP 12–33; TEMP 36.2–39.1; O2SAT 90–99
[2020-07-02] MEDS: Acetaminophen 650 MG Suppository RECTAL ×2 (00:59→21:39)
[2020-07-02] MEDS: Insulin Lispro 100 UNIT/ML INSULN.PEN SC ×6 (02:04→21:48)
[2020-07-02 03:25] LABS: Bedside Glucose 184 mg/dL (70-110)
[2020-07-02 05:50] LABS: Bedside Glucose 232 mg/dL (70-110)
[2020-07-02] MEDS: Ipratropium/Albuterol Sulfate 3 ML AMPUL.NEB INHALATION ×3 (07:27→21:09)
[2020-07-02 08:14] LABS: Absolute Lymphocyte Count 1.88 X10^3/uL (0.83-4.51); Absolute Neutrophil Count 10.9 X10^3/uL (2.0-7.7); Basophil# 0.03 X10^3/uL; Basophil% 0.2 % (0-1); Eosinophil# 0.01 X10^3/uL; Eosinophils% 0.1 % (0-5); Hematocrit 34.2 % (37-47); Hemoglobin 10.2 g/dL (12.0-15.0); Lymphocyte # 1.88 X10^3/ul (4.0); Lymphocyte % 13.9 % (19-41); Mean Corp Hgb Conc 29.8 g/dL (32-36); Mean Corpuscular Hgb 30.6 pg (27.0-32.0); Mean Corpuscular Volume 102.7 fL (81-99); Monocyte# 0.53 X10^3/uL; Monocyte% 3.9 % (0-10); NRBC Flagged by Analyzer 0.1 % (0-5); Neutrophil # 10.94 X10^3/uL (2.7-7.7); Neutrophil % 80.9 % (47-70); Platelet Count 418 K/mm3 (150-450); RBC Distribution Width CV 15.3 % (11.6-14.6); RBC Distribution Width SD 57.2 fl (35.1-43.9); Red Blood Count 3.33 M/mm3 (4.2-5.4); White Blood Count 13.5 K/mm3 (4.4-11.0)
[2020-07-02 08:35] LABS: ALB/GLOB Ratio 0.6 RATIO (0.9-2.4); AST(SGOT) 57 U/L (15-37); Alanine Aminotransfer ALT/SGPT 46 U/L (13-56); Albumin, Serum 2.3 g/dL (3.2-5.0); Alkaline Phosphatase 86 U/L (45-117); Anion Gap 6 (5-15); BUN 43 mg/dL (7-18); BUN/Creat Ratio 58.4 RATIO (10-20); Calcium,Total 8.5 mg/dL (8.5-10.1); Chloride 120 mmol/L (98-107); Creatinine, Serum 0.74 mg/dL (0.55-1.02); EST Glomerular Filtration Rate 83 mL/min (>60); Est Glom Filt Rate - Afr Amer 101 mL/min (>60); Estimated Creatinine Clearance 50.41 ml/min; Globulin 3.6 g/dL (2.2-4.2); Glucose 213 mg/dL (74-106); Potassium 3.6 mmol/L (3.5-5.1); Protein, Total 5.9 g/dL (6.4-8.2); Sodium Level 153 mmol/L (136-145)
--- NOTE | 2020-07-02 09:24 | PCM.PN.PUL ---
Patient Problems: Active and Suspected Problems SARS (severe acute respiratory syndrome) (Acute) Sepsis (Acute) Subjective: The patient was seen and examined at the bedside this morning. Events from the last 24 hours have been reviewed. The patient is currently afebrile, hemodynamically stable and maintaining appropriate oxygen saturations on Airvo heated high flow with an FiO2 requirement of 55% and flow rate of 55 L/min. The patient has already completed a treatment course of remdesivir and remains on Decadron. Objective: The patient's most recent lab work, culture data and imaging studies have all been personally reviewed. - Physical Exam Vitals/I&O's: Vital Signs Temp Pulse Resp BP Pulse Ox 97.1 F L 108 H 33 H 111/68 95 07/02/20 05:41 07/02/20 07:27 07/02/20 07:27 07/02/20 05:41 07/02/20 07:27 Oxygen Flow Rate (L/min) 55 Oxygen Delivery Method Airvo Weight: 136 lb 0.015 oz Body Mass Index (BMI) 21.6 Finger Stick Blood Glucose 178 Intake and Output for Last 24 Hours 06/30/20 07/01/20 07/02/20 23:59 23:59 23:59 Intake Total 1178.34 / 1178.34 200 / 200 Output Total 2675 / 2875 1375 / 1375 425 / 425 Balance -1496.66 / -1696.66 -1175 / -1175 -425 / -425 General: Alert, No apparent distress, Confused HEENT: Atraumatic, Normocephalic Oral: No Gingival or Mucosal Lesions/ Ulcerations Neck: Supple Lungs: Diminished, Tachypneic Cardiovascular: Normal S1, Normal S2, Tachycardic Abdomen: Bowel Sounds Present, Soft, Non Tender Extremities: No clubbing, No cyanosis, No edema Skin: No breakdown Musculoskeletal: No Tenderness to Palpation of Joints or Extremities Lymphatic: No Cervical, Supraclavicular, or Inguinal Adenopathy Neurological: Cranial nerves II-XII grossly intact Labs (Last 48 Hours) 06/30/20 06/30/20 06/30/20 09:53 14:18 18:05 WBC RBC Hgb Hct MCV MCH MCHC RDW Std Deviation RDW Coeff of Kim Plt Count MPV Immature Gran % (Auto) Neut % (Auto) Lymph % (Auto) [place] % (Auto) Eos % (Auto) Baso % (Auto) Absolute Neuts (auto) Absolute Lymphs (auto) Nucleated RBC % Sodium Potassium Chloride Carbon Dioxide Anion Gap BUN Creatinine Estim Creat Clear Calc Est GFR (MDRD) Af Amer Est GFR (MDRD) Non-Af BUN/Creatinine Ratio Glucose Calcium Total Bilirubin AST ALT Alkaline Phosphatase Troponin I B-Natriuretic Peptide Total Protein Albumin Globulin Albumin/Globulin Ratio Procalcitonin POC Glucose 169 H 272 H 276 H 06/30/20 07/01/20 07/01/20 22:16 02:20 05:48 WBC RBC Hgb Hct MCV MCH MCHC RDW Std Deviation RDW Coeff of Kim Plt Count MPV Immature Gran % (Auto) Neut % (Auto) Lymph % (Auto) [place] % (Auto) Eos % (Auto) Baso % (Auto) Absolute Neuts (auto) Absolute Lymphs (auto) Nucleated RBC % Sodium Potassium Chloride Carbon Dioxide Anion Gap BUN Creatinine Estim Creat Clear Calc Est GFR (MDRD) Af Amer Est GFR (MDRD) Non-Af BUN/Creatinine Ratio Glucose Calcium Total Bilirubin AST ALT Alkaline Phosphatase Troponin I B-Natriuretic Peptide Total Protein Albumin Globulin Albumin/Globulin Ratio Procalcitonin POC Glucose 167 H 164 H 183 H 07/01/20 07/01/20 07/01/20 07:20 07:20 07:20 WBC 12.5 H RBC 3.16 L Hgb 9.6 L Hct 32.1 L MCV 101.6 H MCH 30.4 MCHC 29.9 L RDW Std Deviation 56.3 H RDW Coeff of Kim 15.1 H Plt Count 343 MPV 10.7 Immature Gran % (Auto) Neut % (Auto) Lymph % (Auto) [place] % (Auto) Eos % (Auto) Baso % (Auto) Absolute Neuts (auto) Absolute Lymphs (auto) Nucleated RBC % Sodium 152 H Potassium 3.7 Chloride 116 H Carbon Dioxide 25.0 Anion Gap 11 BUN 32 H Creatinine 0.62 Estim Creat Clear Calc 50.41 Est GFR (MDRD) Af Amer 124 Est GFR (MDRD) Non-Af 102 BUN/Creatinine Ratio 51.8 H Glucose 188 H Calcium 7.8 L Total Bilirubin 0.50 AST 53 H ALT 41 Alkaline Phosphatase 79 Troponin I < 0.015 B-Natriuretic Peptide 47.1 Total Protein 5.5 L Albumin 2.1 L Globulin 3.4 Albumin/Globulin Ratio 0.6 L Procalcitonin POC Glucose 07/01/20 07/01/20 07/01/20 07:20 09:48 14:38 WBC RBC Hgb Hct MCV MCH MCHC RDW Std Deviation RDW Coeff of Kim Plt Count MPV Immature Gran % (Auto) Neut % (Auto) Lymph % (Auto) [place] % (Auto) Eos % (Auto) Baso % (Auto) Absolute Neuts (auto) Absolute Lymphs (auto) Nucleated RBC % Sodium Potassium Chloride Carbon Dioxide Anion Gap BUN Creatinine Estim Creat Clear Calc Est GFR (MDRD) Af Amer Est GFR (MDRD) Non-Af BUN/Creatinine Ratio Glucose Calcium Total Bilirubin AST ALT Alkaline Phosphatase Troponin I B-Natriuretic Peptide Total Protein Albumin Globulin Albumin/Globulin Ratio Procalcitonin 0.16 H POC Glucose 209 H 276 H 07/01/20 07/01/20 07/02/20 17:26 22:09 02:03 WBC RBC Hgb Hct MCV MCH MCHC RDW Std Deviation RDW Coeff of Kim Plt Count MPV Immature Gran % (Auto) Neut % (Auto) Lymph % (Auto) [place] % (Auto) Eos % (Auto) Baso % (Auto) Absolute Neuts (auto) Absolute Lymphs (auto) Nucleated RBC % Sodium Potassium Chloride Carbon Dioxide Anion Gap BUN Creatinine Estim Creat Clear Calc Est GFR (MDRD) Af Amer Est GFR (MDRD) Non-Af BUN/Creatinine Ratio Glucose Calcium Total Bilirubin AST ALT Alkaline Phosphatase Troponin I B-Natriuretic Peptide Total Protein Albumin Globulin Albumin/Globulin Ratio Procalcitonin POC Glucose 266 H 214 H 184 H 07/02/20 07/02/20 07/02/20 05:35 07:50 07:50 WBC 13.5 H RBC 3.33 L Hgb 10.2 L Hct 34.2 L MCV 102.7 H MCH 30.6 MCHC 29.8 L RDW Std Deviation 57.2 H RDW Coeff of Kim 15.3 H Plt Count 418 MPV 11.0 Immature Gran % (Auto) 1.000 H Neut % (Auto) 80.9 H Lymph % (Auto) 13.9 L [place] % (Auto) 3.9 Eos % (Auto) 0.1 Baso % (Auto) 0.2 Absolute Neuts (auto) 10.9 H Absolute Lymphs (auto) 1.88 Nucleated RBC % 0.1 Sodium 153 H Potassium 3.6 Chloride 120 H Carbon Dioxide 27.0 Anion Gap 6 BUN 43 H Creatinine 0.74 Estim Creat Clear Calc 50.41 Est GFR (MDRD) Af Amer 101 Est GFR (MDRD) Non-Af 83 BUN/Creatinine Ratio 58.4 H Glucose 213 H Calcium 8.5 Total Bilirubin 0.60 AST 57 H ALT 46 Alkaline Phosphatase 86 Troponin I B-Natriuretic Peptide Total Protein 5.9 L Albumin 2.3 L Globulin 3.6 Albumin/Globulin Ratio 0.6 L Procalcitonin POC Glucose 232 H Microbiology 06/26/20 00:05 Blood Culture (Wb) - Left Forearm Blood Culture - Final No growth in 5 days. 06/26/20 00:25 Blood Culture (Wb) - Right Forearm Blood Culture - Final No growth in 5 days. Clinical Impression(s) from Imaging Studies Chest X-Ray 06/26/20 01:00 IMPRESSION: There is compressive atelectasis in the left lung base. Ill-defined subpleural groundglass opacities are seen more prominent in the lung bases , may represent atypical pneumonia or viral pneumonia (COVID-19 ?). There is a small left pleural effusion. Electronically Signed: Naa Collins, at 1:31 EST Tel , Service support , Chest CTA 06/29/20 10:05 IMPRESSION: Dense consolidation of the left lower lobe. There is no evidence of pulmonary embolism. Mild increased markings at the right lung base. Electronically Signed: Barrett Liu, at 11:17 EST , Service support , Current Medications Acetaminophen (Acetaminophen 650 Mg Suppository) 650 mg RECTAL Q4H PRN PRN PRN Reason: Pain Score 1-10/Temp > 100.7 F Last Admin: 07/02/20 00:59 Dose: 650 mg Documented by: Acetylcysteine (Acetylcysteine 800 Mg/4 Ml Vial.Neb.) 800 mg INHALATION Q6H.RT LYN Last Admin: 07/01/20 20:04 Dose: 800 mg Documented by: Albuterol/Ipratropium (Ipratropium/Albuterol Sulfate 3 Ml Ampul.Neb) 3 ml INHALATION Q6H.RT [facility] Last Admin: 07/02/20 07:27 Dose: 3 ml Documented by: Calamine/Phenol (Menthol/Lanolin/Calamine/Znox 113 Gm Tube) 1 applic TOPICAL BID [facility]; Protocol Last Admin: 07/01/20 20:19 Dose: 1 applicatio Documented by: Dexamethasone Sodium Phosphate (Dexamethasone 4 Mg/Ml Vial) 6 mg IV DAILY [facility] Stop: 07/05/20 10:01 Last Admin: 07/01/20 09:54 Dose: 6 mg Documented by: Dextrose (Dextrose 50%-Water 25 Gm/50 Ml Disp.Syrin) 0 gm IV X1 PRN; Protocol PRN Reason: Hypoglycemia Enoxaparin Sodium (Enoxaparin 40 Mg/0.4 Ml Syringe) 40 mg SC BID [facility] Last Admin: 07/01/20 20:20 Dose: 40 mg Documented by: Glucagon (Glucagon 1 Mg/Ml Syringe) 1 mg IM .X1 PRN PRN Reason: Hypoglycemia Cefepime HCl 2 gm/ Sodium (Chloride) 100 mls @ 200 mls/hr IV Q12 [facility] Last Infusion: 07/01/20 21:07 Dose: Infused Documented by: Insulin Glargine (Insulin Glargine 100 Units/Ml Pen) 30 units SC BID [facility] Last Admin: 07/01/20 20:35 Dose: Not Given Documented by: Insulin Human Lispro (Insulin Lispro 100 Unit/Ml Insuln.Pen) 0 unit SC Q4 [facility]; Protocol Last Admin: 07/02/20 05:36 Dose: 4 u Documented by: Ondansetron HCl (Ondansetron 4 Mg/2 Ml Vial) 4 mg IV Q8H PRN PRN PRN Reason: NAUSEA/VOMITING Rivastigmine (Rivastigmine 9.5mg Patch) 1 patch TD DAILY [facility] Last Admin: 07/01/20 09:51 Dose: 1 patch Documented by: Sodium Chloride (0.9% Saline Lock 10 Ml Syringe) 10 - 40 ml IV UD PRN PRN Reason: SALINE FLUSH Last Admin: 07/01/20 22:11 Dose: 10 ml Documented by: Medical Necessity - Tobacco Use Smoking Status: Never smoker Assessment/Plan All Active Problems SARS (severe acute respiratory syndrome) (Acute) Sepsis (Acute) RECOMMENDATIONS: 1. Continue to wean FiO2 to maintain oxygen saturations at or above 90%. 2. Continue antimicrobials per ID recommendations. 3. Continue Lovenox as ordered. 4. Continue Decadron to complete treatment course. 5. Encourage incentive spirometer use. 6. Continue attempts at diuresis as tolerated by hemodynamics and renal function. IMPRESSIONS: 1. Acute hypoxemic respiratory failure secondary to COVID-19 pneumonia The patient continues to have significant oxygen requirements. She has completed her treatment courses of remdesivir and remains on Decadron. Antimicrobials are being managed by infectious diseases. Continue to wean supplemental oxygen as tolerated to maintain saturations at or above 90%. Continue attempts at diuresis as tolerated by renal function and hemodynamics. 2. Diabetes mellitus/baseline MRDD/hyperlipidemia Complicates care, management, recovery and prognosis. Continue Lantus and sliding scale insulin coverage. This note was generated with [employer] dictation software. It may contain incorrect words, spelling, and punctuation that were not noted in checking the note before signing. Inpatient E&M: 02895 Subs Hosp L2
[2020-07-02] MEDS: Enoxaparin 40 MG/0.4 ML Syringe SC (09:25)
[2020-07-02] MEDS: Rivastigmine 9.5mg Patch 1 PATCH TD (09:26)
[2020-07-02] MEDS: dexAMETHasone 4 MG/ML Vial 6 MG IV (09:26)
[2020-07-02] MEDS: Menthol/Lanolin/Calamine/Znox 113 GM Tube 1 APPLIC TOPICAL ×2 (09:27→21:49)
[2020-07-02] MEDS: Furosemide 40 MG/4 ML Vial IV (09:39)
[2020-07-02 09:45] LABS: Bedside Glucose 201 mg/dL (70-110)
[2020-07-02] MEDS: Acetylcysteine 800 MG/4 ML VIAL.NEB. INHALATION ×2 (13:44→21:09)
[2020-07-02 13:50] LABS: Bedside Glucose 274 mg/dL (70-110)
--- NOTE | 2020-07-02 16:07 | PN_ITS ---
Patient Problems: Active and Suspected Problems SARS (severe acute respiratory syndrome) (Acute) Sepsis (Acute) Objective: T-max 102.4 about midnight. Shortness of breath seems better. Patient looks more awake and said she feels hungry. On high flow oxygen. Physical exam General: Awake. Speaks few words. HEENT: Atraumatic, PERRLA, EOMI, Normocephalic Oral: No Gingival or Mucosal Lesions/ Ulcerations Neck: Supple, No JVD, Negative Carotid Bruits Lungs: Air entry diminished in bilateral lung bases. Bilateral coarse rhonchi. Tachypnea and hypoxia. Cardiovascular: Regular rate, Regular Rhythm, Normal S1, Normal S2, No murmurs Abdomen: Bowel Sounds Present, Soft, Non Tender, Non-Distended : No renal angle tenderness. No suprapubic tenderness. Extremities: No edema, Capillary Refill Less than 3 Seconds Skin: No rashes, No breakdown Musculoskeletal: No Tenderness to Palpation of Joints or Extremities. Range of motion is limited at knees and hip joints. Neurological: Cranial nerves II-XII grossly intact, DTR 2+/4. Detailed neuro exam unobtainable. Psych/Mental Status: Cognitive deficit, MRDD. Vitals/I&O's: Vital Signs Temp Pulse Resp BP Pulse Ox 98.0 F 105 H 30 H 122/79 H 92 07/02/20 12:53 07/02/20 14:59 07/02/20 13:48 07/02/20 12:53 07/02/20 13:48 Oxygen Flow Rate (L/min) 55 Oxygen Delivery Method Airvo Weight: 136 lb 0.015 oz Body Mass Index (BMI) 21.6 Finger Stick Blood Glucose 178 Intake and Output for Last 24 Hours 06/30/20 07/01/20 07/02/20 23:59 23:59 23:59 Intake Total 1178.34 / 1178.34 200 / 200 100 / 100 Output Total 2675 / 2875 1375 / 1375 825 / 825 Balance -1496.66 / -1696.66 -1175 / -1175 -725 / -725 Microbiology Past 72 Hours 06/26/20 00:05 Blood Culture (Wb) - Left Forearm Blood Culture - Final No growth in 5 days. 06/26/20 00:25 Blood Culture (Wb) - Right Forearm Blood Culture - Final No growth in 5 days. Laboratory Results 07/01/20 17:26: POC Glucose 266 H 07/01/20 22:09: POC Glucose 214 H 07/02/20 02:03: POC Glucose 184 H 07/02/20 05:35: POC Glucose 232 H 07/02/20 07:50: WBC 13.5 H, RBC 3.33 L, Hgb 10.2 L, Hct 34.2 L, MCV 102.7 H, MCH 30.6, MCHC 29.8 L, RDW Std Deviation 57.2 H, RDW Coeff of Kim 15.3 H, Plt Count 418, MPV 11.0, Immature Gran % (Auto) 1.000 H, Neut % (Auto) 80.9 H, Lymph % (Auto) 13.9 L, [place] % (Auto) 3.9, Eos % (Auto) 0.1, Baso % (Auto) 0.2, Absolute Neuts (auto) 10.9 H, Absolute Lymphs (auto) 1.88, Nucleated RBC % 0.1 07/02/20 07:50: Sodium 153 H, Potassium 3.6, Chloride 120 H, Carbon Dioxide 27.0, Anion Gap 6, BUN 43 H, Creatinine 0.74, Estim Creat Clear Calc 50.41, Est GFR (MDRD) Af Amer 101, Est GFR (MDRD) Non-Af 83, BUN/Creatinine Ratio 58.4 H, Glucose 213 H, Calcium 8.5, Total Bilirubin 0.60, AST 57 H, ALT 46, Alkaline Phosphatase 86, Total Protein 5.9 L, Albumin 2.3 L, Globulin 3.6, Albumin/Globulin Ratio 0.6 L 07/02/20 09:34: POC Glucose 201 H 07/02/20 13:43: POC Glucose 274 H Current Medications Acetaminophen (Acetaminophen 650 Mg Suppository) 650 mg RECTAL Q4H PRN PRN PRN Reason: Pain Score 1-10/Temp > 100.7 F Last Admin: 07/02/20 00:59 Dose: 650 mg Documented by: Acetylcysteine (Acetylcysteine 800 Mg/4 Ml Vial.Neb.) 800 mg INHALATION Q6H.RT LYN Last Admin: 07/02/20 13:44 Dose: 800 mg Documented by: Albuterol/Ipratropium (Ipratropium/Albuterol Sulfate 3 Ml Ampul.Neb) 3 ml INHALATION Q6H.RT [facility] Last Admin: 07/02/20 13:44 Dose: 3 ml Documented by: Calamine/Phenol (Menthol/Lanolin/Calamine/Znox 113 Gm Tube) 1 applic TOPICAL BID [facility]; Protocol Last Admin: 07/02/20 09:27 Dose: 1 applicatio Documented by: Dexamethasone Sodium Phosphate (Dexamethasone 4 Mg/Ml Vial) 6 mg IV DAILY [facility] Stop: 07/05/20 10:01 Last Admin: 07/02/20 09:26 Dose: 6 mg Documented by: Dextrose (Dextrose 50%-Water 25 Gm/50 Ml Disp.Syrin) 0 gm IV X1 PRN; Protocol PRN Reason: Hypoglycemia Enoxaparin Sodium (Enoxaparin 40 Mg/0.4 Ml Syringe) 40 mg SC BID [facility] Last Admin: 07/02/20 09:25 Dose: 40 mg Documented by: Glucagon (Glucagon 1 Mg/Ml Syringe) 1 mg IM .X1 PRN PRN Reason: Hypoglycemia Cefepime HCl 2 gm/ Sodium (Chloride) 100 mls @ 200 mls/hr IV Q12 [facility] Last Infusion: 07/02/20 09:56 Dose: Infused Documented by: Insulin Glargine (Insulin Glargine 100 Units/Ml Pen) 30 units SC BID [facility] Last Admin: 07/02/20 09:36 Dose: Not Given Documented by: Insulin Human Lispro (Insulin Lispro 100 Unit/Ml Insuln.Pen) 0 unit SC Q4 [facility]; Protocol Last Admin: 07/02/20 13:44 Dose: 6 u Documented by: Ondansetron HCl (Ondansetron 4 Mg/2 Ml Vial) 4 mg IV Q8H PRN PRN PRN Reason: NAUSEA/VOMITING Rivastigmine (Rivastigmine 9.5mg Patch) 1 patch TD DAILY [facility] Last Admin: 07/02/20 09:26 Dose: 1 patch Documented by: Sodium Chloride (0.9% Saline Lock 10 Ml Syringe) 10 - 40 ml IV UD PRN PRN Reason: SALINE FLUSH Last Admin: 07/01/20 22:11 Dose: 10 ml Documented by: STROKE Vital Signs/Narrative: Vital Signs Temp Pulse Resp BP Pulse Ox 07/02/20 14:59 105 H 07/02/20 13:48 107 H 30 H 92 07/02/20 12:53 98.0 F 108 H 20 H 122/79 H 94 Medical Necessity - Tobacco Use Smoking Status: Never smoker Assessment/Plan All Active Problems SARS (severe acute respiratory syndrome) (Acute) Sepsis (Acute) This is a 70 years old female patient presented to the emergency room because of fever, shortness of breath and change in mental status, found to have acute bilateral COVID-19 pneumonia, acute cystitis with sepsis complicated by acute hypoxic respiratory failure, found to have acute cystitis and acute kidney injury as well as encephalopathy. #1 acute bilateral COVID-19 pneumonia/sepsis: PCT was 4. ID consult reviewed. ID stop vancomycin. On dexamethasone, remdesivir and Lovenox. Continue cefepime. D-dimer 2.48. CT angiogram chest shows dense consolidation in the left lower lobe but no evidence of pulmonary embolism. Urine culture showed no growth. 06/30: Continue treatment. Patient on cefepime. Seen by transcribing operators supervisor. 07/01: Continue above treatment. 07/02: On 6-day of IV antibiotic. 1 more day tomorrow. Leukocytosis with lymphopenia #2 acute hypoxic respiratory failure with 19 bilateral pneumonia. Currently, she is on airvo FiO2 of 90 %. she has been requiring more oxygen. Mild fever T-max 99.5 Fahrenheit. 06/30: Discussed with the respiratory therapist. On 87% FiO2 to maintain pulse ox 92%. 07/01: Started on BiPAP. DuoNeb with Mucomyst inhalation. Lasix 40 mg IV 1 dose given. 07/02: On intermittent Lasix. #3 acute kidney injury/mild hypernatremia: Due to dehydration and poor oral intake. K resolved. BUN 33, creatinine 0.59. Continue IV fluid as she had IV contrast to prevent LETA. 06/30: IV fluid discontinued. #4 acute encephalopathy on baseline MRDD and cognitive impairment/mild dementia. Patient is incomprehensible. Apparently, she is confused, incoherent at baseline which may be worsened by acute infection with COVID-19. #5 type 2 diabetes mellitus: Blood sugar has been under fair control. She is on Lantus and sliding scale. 07/01: Glucose is elevated. Currently patient is n.p.o. Accu-Cheks with sliding scale. #6 MRDD/cognitive impairment/dementia: Continue Exelon patch, supportive treatment. #7 bipolar disorder/depression: Depakote, Effexor and Zoloft because of encephalopathy. #8 CODE STATUS: DNR CCA, no intubation. #9 DVT prophylaxis: Subcu Lovenox twice daily. Clinical Impression(s) from Imaging Studies Chest X-Ray 06/26/20 01:00 IMPRESSION: There is compressive atelectasis in the left lung base. Ill-defined subpleural groundglass opacities are seen more prominent in the lung bases , may represent atypical pneumonia or viral pneumonia (COVID-19 ?). There is a small left pleural effusion. Chest CTA 06/29/20 10:05 IMPRESSION: Dense consolidation of the left lower lobe. There is no evidence of pulmonary embolism. Mild increased markings at the right lung base. Electronically Signed: Barrett Liu, at 11:17 EST , Service support , Microbiology Past 72 Hours 06/26/20 00:05 Blood Culture (Wb) - Left Forearm Blood Culture - Final No growth in 5 days. 06/26/20 00:25 Blood Culture (Wb) - Right Forearm Blood Culture - Final No growth in 5 days. Laboratory Results 07/01/20 17:26: POC Glucose 266 H 07/01/20 22:09: POC Glucose 214 H 07/02/20 02:03: POC Glucose 184 H 07/02/20 05:35: POC Glucose 232 H 07/02/20 07:50: WBC 13.5 H, RBC 3.33 L, Hgb 10.2 L, Hct 34.2 L, MCV 102.7 H, MCH 30.6, MCHC 29.8 L, RDW Std Deviation 57.2 H, RDW Coeff of Kim 15.3 H, Plt Count 418, MPV 11.0, Immature Gran % (Auto) 1.000 H, Neut % (Auto) 80.9 H, Lymph % (Auto) 13.9 L, [place] % (Auto) 3.9, Eos % (Auto) 0.1, Baso % (Auto) 0.2, Absolute Neuts (auto) 10.9 H, Absolute Lymphs (auto) 1.88, Nucleated RBC % 0.1 12/18/20 07:50: Sodium 153 H, Potassium 3.6, Chloride 120 H, Carbon Dioxide 27.0, Anion Gap 6, BUN 43 H, Creatinine 0.74, Estim Creat Clear Calc 50.41, Est GFR (MDRD) Af Amer 101, Est GFR (MDRD) Non-Af 83, BUN/Creatinine Ratio 58.4 H, Glucose 213 H, Calcium 8.5, Total Bilirubin 0.60, AST 57 H, ALT 46, Alkaline Phosphatase 86, Total Protein 5.9 L, Albumin 2.3 L, Globulin 3.6, Albumin/Globulin Ratio 0.6 L 07/02/20 09:34: POC Glucose 201 H 07/02/20 13:43: POC Glucose 274 H Inpatient E&M: 13900 Subs Hosp L2
--- NOTE | 2020-07-02 16:28 | PN.ID_ITS ---
Patient Problems: Active and Suspected Problems SARS (severe acute respiratory syndrome) (Acute) Sepsis (Acute) Subjective: One time fever overnight, no other events - Physical Exam Vitals/I&O's: Vital Signs Temp Pulse Resp BP Pulse Ox 98.0 F 105 H 30 H 122/79 H 92 07/02/20 12:53 07/02/20 14:59 07/02/20 13:48 07/02/20 12:53 07/02/20 13:48 Oxygen Flow Rate (L/min) 55 Oxygen Delivery Method Airvo Weight: 61.689 kg Body Mass Index (BMI) 21.6 Finger Stick Blood Glucose 178 Intake and Output for Last 24 Hours 06/30/20 07/01/20 07/02/20 23:59 23:59 23:59 Intake Total 1178.34 / 1178.34 200 / 200 100 / 100 Output Total 2675 / 2875 1375 / 1375 825 / 825 Balance -1496.66 / -1696.66 -1175 / -1175 -725 / -725 General: Cooperative, No apparent distress Lungs: Diminished Cardiovascular: Regular rate, Regular Rhythm Abdomen: Soft, Non Tender, Non-Distended Skin: No rashes Microbiology Past 72 Hours 06/26/20 00:05 Blood Culture (Wb) - Left Forearm Blood Culture - Final No growth in 5 days. 06/26/20 00:25 Blood Culture (Wb) - Right Forearm Blood Culture - Final No growth in 5 days. Laboratory Results 07/01/20 17:26: POC Glucose 266 H 07/01/20 22:09: POC Glucose 214 H 07/02/20 02:03: POC Glucose 184 H 07/02/20 05:35: POC Glucose 232 H 07/02/20 07:50: WBC 13.5 H, RBC 3.33 L, Hgb 10.2 L, Hct 34.2 L, MCV 102.7 H, MCH 30.6, MCHC 29.8 L, RDW Std Deviation 57.2 H, RDW Coeff of Kim 15.3 H, Plt Count 418, MPV 11.0, Immature Gran % (Auto) 1.000 H, Neut % (Auto) 80.9 H, Lymph % (Auto) 13.9 L, [place] % (Auto) 3.9, Eos % (Auto) 0.1, Baso % (Auto) 0.2, Absolute Neuts (auto) 10.9 H, Absolute Lymphs (auto) 1.88, Nucleated RBC % 0.1 07/02/20 07:50: Sodium 153 H, Potassium 3.6, Chloride 120 H, Carbon Dioxide 27.0, Anion Gap 6, BUN 43 H, Creatinine 0.74, Estim Creat Clear Calc 50.41, Est GFR (MDRD) Af Amer 101, Est GFR (MDRD) Non-Af 83, BUN/Creatinine Ratio 58.4 H, Glucose 213 H, Calcium 8.5, Total Bilirubin 0.60, AST 57 H, ALT 46, Alkaline Phosphatase 86, Total Protein 5.9 L, Albumin 2.3 L, Globulin 3.6, Albumin/Globulin Ratio 0.6 L 07/02/20 09:34: POC Glucose 201 H 07/02/20 13:43: POC Glucose 274 H Current Medications Acetaminophen (Acetaminophen 650 Mg Suppository) 650 mg RECTAL Q4H PRN PRN PRN Reason: Pain Score 1-10/Temp > 100.7 F Last Admin: 07/02/20 00:59 Dose: 650 mg Documented by: Acetylcysteine (Acetylcysteine 800 Mg/4 Ml Vial.Neb.) 800 mg INHALATION Q6H.RT [facility] Last Admin: 07/02/20 13:44 Dose: 800 mg Documented by: Albuterol/Ipratropium (Ipratropium/Albuterol Sulfate 3 Ml Ampul.Neb) 3 ml INHALATION Q6H.RT [facility] Last Admin: 07/02/20 13:44 Dose: 3 ml Documented by: Calamine/Phenol (Menthol/Lanolin/Calamine/Znox 113 Gm Tube) 1 applic TOPICAL BID [facility]; Protocol Last Admin: 07/02/20 09:27 Dose: 1 applicatio Documented by: Dexamethasone Sodium Phosphate (Dexamethasone 4 Mg/Ml Vial) 6 mg IV DAILY [facility] Stop: 07/05/20 10:01 Last Admin: 07/02/20 09:26 Dose: 6 mg Documented by: Dextrose (Dextrose 50%-Water 25 Gm/50 Ml Disp.Syrin) 0 gm IV X1 PRN; Protocol PRN Reason: Hypoglycemia Enoxaparin Sodium (Enoxaparin 40 Mg/0.4 Ml Syringe) 40 mg SC BID [facility] Last Admin: 07/02/20 09:25 Dose: 40 mg Documented by: Glucagon (Glucagon 1 Mg/Ml Syringe) 1 mg IM .X1 PRN PRN Reason: Hypoglycemia Insulin Glargine (Insulin Glargine 100 Units/Ml Pen) 30 units SC BID [facility] Last Admin: 07/02/20 09:36 Dose: Not Given Documented by: Insulin Human Lispro (Insulin Lispro 100 Unit/Ml Insuln.Pen) 0 unit SC Q4 [facility]; Protocol Last Admin: 07/02/20 13:44 Dose: 6 u Documented by: Ondansetron HCl (Ondansetron 4 Mg/2 Ml Vial) 4 mg IV Q8H PRN PRN PRN Reason: NAUSEA/VOMITING Rivastigmine (Rivastigmine 9.5mg Patch) 1 patch TD DAILY [facility] Last Admin: 07/02/20 09:26 Dose: 1 patch Documented by: Sodium Chloride (0.9% Saline Lock 10 Ml Syringe) 10 - 40 ml IV UD PRN PRN Reason: SALINE FLUSH Last Admin: 07/01/20 22:11 Dose: 10 ml Documented by: Medical Necessity - Tobacco Use Smoking Status: Never smoker Route of nutrition/ use of supplements: [] Nutritional Intake: [] IV Site: [] Culp Catheter: [] - Assessment/Plan Antibiotics: [] Assessment/Plan: [] Active and Suspected Problems SARS (severe acute respiratory syndrome) (Acute) Sepsis (Acute) covid with hypoxia, encephalopathy, persistent fever - on empiric cefepime. Cxs neg so far, PCT was 4. On dex, lovenox 30mg bid. Completed remdesivir. CTA showed no PE but dense infiltrate. O2 much improved. One time fever overnight but otherwise afebrile for several days. Will stop cefepime today (day 7). Will follow
[2020-07-02 17:51] LABS: Bedside Glucose 287 mg/dL (70-110)
[2020-07-02 23:16] LABS: Bedside Glucose 188 mg/dL (70-110)
[2020-07-03] VITALS (23 sets, daily range): BP systolic 103–120; BP diastolic 62–75; PULSE 91–119; RESP 18–30; TEMP 36.2–37.2; O2SAT 92–98
[2020-07-03] MEDS: Enoxaparin 40 MG/0.4 ML Syringe SC ×3 (00:04→22:00)
[2020-07-03] MEDS: Insulin Lispro 100 UNIT/ML INSULN.PEN SC ×6 (02:09→22:06)
[2020-07-03 02:21] LABS: Bedside Glucose 191 mg/dL (70-110)
[2020-07-03 07:06] LABS: Bedside Glucose 210 mg/dL (70-110)
[2020-07-03 07:07] LABS: Absolute Lymphocyte Count 2.44 X10^3/uL (0.83-4.51); Absolute Neutrophil Count 10.2 X10^3/uL (2.0-7.7); Basophil# 0.01 X10^3/uL; Basophil% 0.1 % (0-1); Eosinophil# 0.02 X10^3/uL; Eosinophils% 0.2 % (0-5); Hematocrit 36.3 % (37-47); Hemoglobin 10.4 g/dL (12.0-15.0); Lymphocyte # 2.44 X10^3/ul (4.0); Lymphocyte % 18.3 % (19-41); Mean Corp Hgb Conc 28.7 g/dL (32-36); Mean Corpuscular Hgb 30.1 pg (27.0-32.0); Mean Corpuscular Volume 105.2 fL (81-99); Mean Platelet Vol. 11.2 fl (6.2-12.0); Monocyte# 0.56 X10^3/uL; Monocyte% 4.2 % (0-10); NRBC Flagged by Analyzer 0.2 % (0-5); Neutrophil # 10.17 X10^3/uL (2.7-7.7); Neutrophil % 76.4 % (47-70); Platelet Count 372 K/mm3 (150-450); RBC Distribution Width CV 15.4 % (11.6-14.6); RBC Distribution Width SD 60.2 fl (35.1-43.9); Red Blood Count 3.45 M/mm3 (4.2-5.4); White Blood Count 13.3 K/mm3 (4.4-11.0)
[2020-07-03] MEDS: Ipratropium/Albuterol Sulfate 3 ML AMPUL.NEB INHALATION ×3 (07:14→19:38)
[2020-07-03] MEDS: Acetylcysteine 800 MG/4 ML VIAL.NEB. INHALATION ×3 (07:14→19:38)
[2020-07-03 07:32] LABS: ALB/GLOB Ratio 0.5 RATIO (0.9-2.4); AST(SGOT) 64 U/L (15-37); Alanine Aminotransfer ALT/SGPT 50 U/L (13-56); Albumin, Serum 2.4 g/dL (3.2-5.0); Alkaline Phosphatase 91 U/L (45-117); Anion Gap 6 (5-15); BUN 54 mg/dL (7-18); BUN/Creat Ratio 54.7 RATIO (10-20); Chloride 117 mmol/L (98-107); Creatinine, Serum 0.99 mg/dL (0.55-1.02); EST Glomerular Filtration Rate 59 mL/min (>60); Est Glom Filt Rate - Afr Amer 72 mL/min (>60); Estimated Creatinine Clearance 50.91 ml/min; Globulin 4.5 g/dL (2.2-4.2); Glucose 230 mg/dL (74-106); Potassium 3.4 mmol/L (3.5-5.1); Protein, Total 6.9 g/dL (6.4-8.2); Sodium Level 152 mmol/L (136-145)
[2020-07-03] MEDS: Rivastigmine 9.5mg Patch 1 PATCH TD (09:47)
[2020-07-03] MEDS: dexAMETHasone 4 MG/ML Vial 6 MG IV (09:49)
[2020-07-03] MEDS: 0.9% Saline Lock 10 ML Syringe IV ×3 (09:52→22:07)
[2020-07-03] MEDS: Menthol/Lanolin/Calamine/Znox 113 GM Tube 1 APPLIC TOPICAL ×2 (09:54→21:59)
[2020-07-03 10:31] LABS: Bedside Glucose 229 mg/dL (70-110)
[2020-07-03 14:51] LABS: Bedside Glucose 259 mg/dL (70-110)
--- NOTE | 2020-07-03 15:11 | PN_ITS ---
Patient Problems: Active and Suspected Problems SARS (severe acute respiratory syndrome) (Acute) Sepsis (Acute) Objective: No fever for last 24 hours. Patient shortness of breath and respiratory status looks better. She states he is hungry. She cannot tell more about shortness of breath, cough or other symptoms. On high flow humidified oxygen. Respiratory rate 24 to 26/min Physical exam General: Awake. Speaks few words or phrases. HEENT: Atraumatic, PERRLA, EOMI, Normocephalic Oral: No Gingival or Mucosal Lesions/ Ulcerations Neck: Supple, No JVD, Negative Carotid Bruits Lungs: Air entry diminished in bilateral lung bases. Bilateral coarse rhonchi. Cardiovascular: Regular rate, Regular Rhythm, Normal S1, Normal S2, No murmurs Abdomen: Bowel Sounds Present, Soft, Non Tender, Non-Distended : No renal angle tenderness. No suprapubic tenderness. Extremities: No edema, Capillary Refill Less than 3 Seconds Skin: No rashes, No breakdown Musculoskeletal: No Tenderness to Palpation of Joints or Extremities. Range of motion is limited at knees and hip joints. Neurological: Cranial nerves II-XII grossly intact, DTR 2+/4. Detailed neuro exam unobtainable. Psych/Mental Status: Cognitive deficit, MRDD. Vitals/I&O's: Vital Signs Temp Pulse Resp BP Pulse Ox 99 F 98 24 H 120/67 95 07/03/20 14:38 07/03/20 14:38 07/03/20 14:38 07/03/20 14:38 07/03/20 14:38 Oxygen Flow Rate (L/min) 55 Oxygen Delivery Method Airvo Weight: 136 lb 0.015 oz Body Mass Index (BMI) 21.6 Finger Stick Blood Glucose 178 Intake and Output for Last 24 Hours 07/01/20 07/02/20 07/03/20 23:59 23:59 23:59 Intake Total 200 / 200 100 / 100 0 / 0 Output Total 1375 / 1375 1175 / 1175 225 / 225 Balance -1175 / -1175 -1075 / -1075 -225 / -225 Microbiology Past 72 Hours 06/26/20 00:05 Blood Culture (Wb) - Left Forearm Blood Culture - Final No growth in 5 days. 06/26/20 00:25 Blood Culture (Wb) - Right Forearm Blood Culture - Final No growth in 5 days. Laboratory Results 07/02/20 17:39: POC Glucose 287 H 07/02/20 21:46: POC Glucose 188 H 07/03/20 02:06: POC Glucose 191 H 07/03/20 06:27: WBC 13.3 H, RBC 3.45 L, Hgb 10.4 L, Hct 36.3 L, MCV 105.2 H, MCH 30.1, MCHC 28.7 L, RDW Std Deviation 60.2 H, RDW Coeff of Kim 15.4 H, Plt Count 372, MPV 11.2, Immature Gran % (Auto) 0.800, Neut % (Auto) 76.4 H, Lymph % (Auto) 18.3 L, [place] % (Auto) 4.2, Eos % (Auto) 0.2, Baso % (Auto) 0.1, Absolute Neuts (auto) 10.2 H, Absolute Lymphs (auto) 2.44, Nucleated RBC % 0.2 07/03/20 06:27: Sodium 152 H, Potassium 3.4 L, Chloride 117 H, Carbon Dioxide 29.0, Anion Gap 6, BUN 54 H, Creatinine 0.99, Estim Creat Clear Calc 50.91, Est GFR (MDRD) Af Amer 72, Est GFR (MDRD) Non-Af 59 L, BUN/Creatinine Ratio 54.7 H, Glucose 230 H, Calcium 9.0, Total Bilirubin 0.50, AST 64 H, ALT 50, Alkaline Phosphatase 91, Total Protein 6.9, Albumin 2.4 L, Globulin 4.5 H, Albumin/Globulin Ratio 0.5 L 07/03/20 06:49: POC Glucose 210 H 07/03/20 06:50: Sodium Cancelled, Potassium Cancelled, Chloride Cancelled, Carbon Dioxide Cancelled, Anion Gap Cancelled, BUN Cancelled, Creatinine Cancelled, Estim Creat Clear Calc Cancelled, Est GFR (MDRD) Af Amer Cancelled, Est GFR (MDRD) Non-Af Cancelled, BUN/Creatinine Ratio Cancelled, Glucose Cancelled, Calcium Cancelled 07/03/20 09:51: POC Glucose 229 H 07/03/20 14:36: POC Glucose 259 H Current Medications Acetaminophen (Acetaminophen 650 Mg Suppository) 650 mg RECTAL Q4H PRN PRN PRN Reason: Pain Score 1-10/Temp > 100.7 F Last Admin: 07/02/20 21:39 Dose: 650 mg Documented by: Acetylcysteine (Acetylcysteine 800 Mg/4 Ml Vial.Neb.) 800 mg INHALATION Q6H.RT [facility] Last Admin: 07/03/20 13:29 Dose: 800 mg Documented by: Albuterol/Ipratropium (Ipratropium/Albuterol Sulfate 3 Ml Ampul.Neb) 3 ml INH ALATION Q6H.RT [facility] Last Admin: 07/03/20 13:29 Dose: 3 ml Documented by: Calamine/Phenol (Menthol/Lanolin/Calamine/Znox 113 Gm Tube) 1 applic TOPICAL BID [facility]; Protocol Last Admin: 07/03/20 09:54 Dose: 1 applicatio Documented by: Dexamethasone Sodium Phosphate (Dexamethasone 4 Mg/Ml Vial) 6 mg IV DAILY [facility] Stop: 07/05/20 10:01 Last Admin: 07/03/20 09:49 Dose: 6 mg Documented by: Dextrose (Dextrose 50%-Water 25 Gm/50 Ml Disp.Syrin) 0 gm IV X1 PRN; Protocol PRN Reason: Hypoglycemia Enoxaparin Sodium (Enoxaparin 40 Mg/0.4 Ml Syringe) 40 mg SC BID [facility] Last Admin: 07/03/20 09:51 Dose: 40 mg Documented by: Glucagon (Glucagon 1 Mg/Ml Syringe) 1 mg IM .X1 PRN PRN Reason: Hypoglycemia Insulin Glargine (Insulin Glargine 100 Units/Ml Pen) 30 units SC BID [facility] Last Admin: 07/03/20 11:46 Dose: Not Given Documented by: Insulin Human Lispro (Insulin Lispro 100 Unit/Ml Insuln.Pen) 0 unit SC Q4 [facility]; Protocol Last Admin: 07/03/20 14:41 Dose: 4 u Documented by: Ondansetron HCl (Ondansetron 4 Mg/2 Ml Vial) 4 mg IV Q8H PRN PRN PRN Reason: NAUSEA/VOMITING Rivastigmine (Rivastigmine 9.5mg Patch) 1 patch TD DAILY [facility] Last Admin: 07/03/20 09:47 Dose: 1 patch Documented by: Sodium Chloride (0.9% Saline Lock 10 Ml Syringe) 10 - 40 ml IV UD PRN PRN Reason: SALINE FLUSH Last Admin: 07/03/20 09:52 Dose: 10 ml Documented by: STROKE Vital Signs/Narrative: Vital Signs Temp Pulse Resp BP Pulse Ox 07/03/20 14:38 99 F 98 24 H 120/67 95 07/03/20 13:30 106 H 25 H 07/03/20 11:58 105 H 07/03/20 11:45 101 H 24 H 97 Medical Necessity - Tobacco Use Smoking Status: Never smoker Assessment/Plan All Active Problems SARS (severe acute respiratory syndrome) (Acute) Sepsis (Acute) This is a 70 years old female patient presented to the emergency room because of fever, shortness of breath and change in mental status, found to have acute bilateral COVID-19 pneumonia, acute cystitis with sepsis complicated by acute hypoxic respiratory failure, found to have acute cystitis and acute kidney injury as well as encephalopathy. #1 acute bilateral COVID-19 pneumonia/sepsis: PCT was 4. ID consult reviewed. ID stop vancomycin. On dexamethasone, remdesivir and Lovenox. Continue cefe pime. D-dimer 2.48. CT angiogram chest shows dense consolidation in the left lower lobe but no evidence of pulmonary embolism. Urine culture showed no growth. 06/30: Continue treatment. Patient on cefepime. Seen by desk top publisher. 07/01: Continue above treatment. 07/02: On 6-day of IV antibiotic. 1 more day tomorrow. Leukocytosis with lymphopenia 07/03: Mild leukocytosis. Respiratory status is improving. Lung auscultation few coarse crepitations. #2 acute hypoxic respiratory failure with 19 bilateral pneumonia. Currently, she is on airvo FiO2 of 90 %. she has been requiring more oxygen. Mild fever T-max 99.5 Fahrenheit. 06/30: Discussed with the respiratory therapist. On 87% FiO2 to maintain pulse ox 92%. 07/01: Started on BiPAP. DuoNeb with Mucomyst inhalation. Lasix 40 mg IV 1 dose given. Patient can be started on dysphagia diet as found appropriate by speech therapist #3 acute kidney injury/mild hypernatremia: Due to dehydration and poor oral intake. K resolved. BUN 33, creatinine 0.59. Continue IV fluid as she had IV contrast to prevent LETA. 06/30: IV fluid discontinued. 07/03: Sodium 152, K3.4. Seems patient is well diuresed. #4 acute encephalopathy on baseline MRDD and cognitive impairment/mild dementia. Patient is incomprehensible. Apparently, she is confused, incoherent at baseline which may be worsened by acute infection with COVID-19. #5 type 2 diabetes mellitus: Blood sugar has been under fair control. She is on Lantus and sliding scale. 07/01: Glucose is elevated. Currently patient is n.p.o. Accu-Cheks with sliding scale. #6 MRDD/cognitive impairment/dementia: Continue Exelon patch, supportive treatment. #7 bipolar disorder/depression: Depakote, Effexor and Zoloft because of encephalopathy. #8 CODE STATUS: DNR CCA, no intubation. #9 DVT prophylaxis: Subcu Lovenox twice daily. Clinical Impression(s) from Imaging Studies Chest X-Ray 06/26/20 01:00 IMPRESSION: There is compressive atelectasis in the left lung base. Ill-defined subpleural groundglass opacities are seen more prominent in the lung bases , may represent atypical pneumonia or viral pneumonia (COVID-19 ?). There is a small left pleural effusion. Chest CTA 06/29/20 10:05 IMPRESSION: Dense consolidation of the left lower lobe. There is no evidence of pulmonary embolism. Mild increased markings at the right lung base. Electronically Signed: Barrett Liu, at 11:17 EST , Service support , Microbiology Past 72 Hours 06/26/20 00:05 Blood Culture (Wb) - Left Forearm Blood Culture - Final No growth in 5 days. 06/26/20 00:25 Blood Culture (Wb) - Right Forearm Blood Culture - Final No growth in 5 days. Laboratory Results 07/02/20 17:39: POC Glucose 287 H 07/02/20 21:46: POC Glucose 188 H 07/03/20 02:06: POC Glucose 191 H 07/03/20 06:27: WBC 13.3 H, RBC 3.45 L, Hgb 10.4 L, Hct 36.3 L, MCV 105.2 H, MCH 30.1, MCHC 28.7 L, RDW Std Deviation 60.2 H, RDW Coeff of Kim 15.4 H, Plt Count 372, MPV 11.2, Immature Gran % (Auto) 0.800, Neut % (Auto) 76.4 H, Lymph % (Auto) 18.3 L, [place] % (Auto) 4.2, Eos % (Auto) 0.2, Baso % (Auto) 0.1, Absolute Neuts (auto) 10.2 H, Absolute Lymphs (auto) 2.44, Nucleated RBC % 0.2 07/03/20 06:27: Sodium 152 H, Potassium 3.4 L, Chloride 117 H, Carbon Dioxide 29.0, Anion Gap 6, BUN 54 H, Creatinine 0.99, Estim Creat Clear Calc 50.91, Est GFR (MDRD) Af Amer 72, Est GFR (MDRD) Non-Af 59 L, BUN/Creatinine Ratio 54.7 H, Glucose 230 H, Calcium 9.0, Total Bilirubin 0.50, AST 64 H, ALT 50, Alkaline Phosphatase 91, Total Protein 6.9, Albumin 2.4 L, Globulin 4.5 H, Albumin/Globulin Ratio 0.5 L 07/03/20 06:49: POC Glucose 210 H 07/03/20 06:50: Sodium Cancelled, Potassium Cancelled, Chloride Cancelled, Carbon Dioxide Cancelled, Anion Gap Cancelled, BUN Cancelled, Creatinine Cancelled, Estim Creat Clear Calc Cancelled, Est GFR (MDRD) Af Amer Cancelled, Est GFR (MDRD) Non-Af Cancelled, BUN/Creatinine Ratio Cancelled, Glucose Cancelled, Calcium Cancelled 07/03/20 09:51: POC Glucose 229 H 07/03/20 14:36: POC Glucose 259 H Inpatient E&M: 70447 Subs Hosp L2
[2020-07-03 19:21] LABS: Bedside Glucose 291 mg/dL (70-110)
[2020-07-03 22:55] LABS: Bedside Glucose 381 mg/dL (70-110)
[2020-07-04] VITALS (20 sets, daily range): BP systolic 95–112; BP diastolic 56–66; PULSE 101–130; RESP 18–36; TEMP 36.5–38.6; O2SAT 69–99
[2020-07-04] MEDS: Acetylcysteine 800 MG/4 ML VIAL.NEB. INHALATION ×2 (01:33→08:22)
[2020-07-04] MEDS: Ipratropium/Albuterol Sulfate 3 ML AMPUL.NEB INHALATION ×4 (01:33→21:30)
[2020-07-04] MEDS: Insulin Lispro 100 UNIT/ML INSULN.PEN SC ×4 (02:20→22:04)
[2020-07-04 02:31] LABS: Bedside Glucose 218 mg/dL (70-110)
[2020-07-04 07:06] LABS: Bedside Glucose 134 mg/dL (70-110)
--- NOTE | 2020-07-04 07:31 | PCM.PN.HOSP ---
Patient Problems: Active and Suspected Problems SARS (severe acute respiratory syndrome) (Acute) Sepsis (Acute) Reason for Visit: Follow-up for acute hypoxic respiratory failure secondary to COVID-19 pneumonia and MRDD/dementia patient Objective: Heart rate, sinus tachycardia in the 110s. Patient is still tachypneic and mild short of breath. Started on diet yesterday. Patient has +2 L fluid balance. Vitals/I&O's: Vital Signs Temp Pulse Resp BP Pulse Ox 97.7 F L 116 H 34 H 102/63 95 07/04/20 06:31 07/04/20 06:37 07/04/20 06:31 07/04/20 06:31 07/04/20 06:31 Oxygen Flow Rate (L/min) 55 Oxygen Delivery Method Airvo Weight: 136 lb 0.015 oz Body Mass Index (BMI) 21.6 Finger Stick Blood Glucose 178 Intake and Output for Last 24 Hours 07/02/20 07/03/20 07/04/20 23:59 23:59 23:59 Intake Total 100 / 100 380 / 380 Output Total 1175 / 1175 425 / 425 250 / 250 Balance -1075 / -1075 -45 / -45 -250 / -250 Microbiology Past 72 Hours 06/26/20 00:05 Blood Culture (Wb) - Left Forearm Blood Culture - Final No growth in 5 days. 06/26/20 00:25 Blood Culture (Wb) - Right Forearm Blood Culture - Final No growth in 5 days. Laboratory Results 07/03/20 06:27: Sodium 152 H, Potassium 3.4 L, Chloride 117 H, Carbon Dioxide 29.0, Anion Gap 6, BUN 54 H, Creatinine 0.99, Estim Creat Clear Calc 50.91, Est GFR (MDRD) Af Amer 72, Est GFR (MDRD) Non-Af 59 L, BUN/Creatinine Ratio 54.7 H, Glucose 230 H, Calcium 9.0, Total Bilirubin 0.50, AST 64 H, ALT 50, Alkaline Phosphatase 91, Total Protein 6.9, Albumin 2.4 L, Globulin 4.5 H, Albumin/Globulin Ratio 0.5 L 07/03/20 06:50: Sodium Cancelled, Potassium Cancelled, Chloride Cancelled, Carbon Dioxide Cancelled, Anion Gap Cancelled, BUN Cancelled, Creatinine Cancelled, Estim Creat Clear Calc Cancelled, Est GFR (MDRD) Af Amer Cancelled, Est GFR (MDRD) Non-Af Cancelled, BUN/Creatinine Ratio Cancelled, Glucose Cancelled, Calcium Cancelled 07/03/20 09:51: POC Glucose 229 H 07/03/20 14:36: POC Glucose 259 H 07/03/20 19:09: POC Glucose 291 H 07/03/20 22:04: POC Glucose 381 H 07/04/20 02:17: POC Glucose 218 H 07/04/20 06:29: POC Glucose 134 H Current Medications Acetaminophen (Acetaminophen 650 Mg Suppository) 650 mg RECTAL Q4H PRN PRN PRN Reason: Pain Score 1-10/Temp > 100.7 F Last Admin: 07/02/20 21:39 Dose: 650 mg Documented by: Acetylcysteine (Acetylcysteine 800 Mg/4 Ml Vial.Neb.) 800 mg INHALATION Q6H.RT [facility] Last Admin: 07/04/20 01:33 Dose: 800 mg Documented by: Albuterol/Ipratropium (Ipratropium/Albuterol Sulfate 3 Ml Ampul.Neb) 3 ml INHALATION Q6H.RT [facility] Last Admin: 07/04/20 01:33 Dose: 3 ml Documented by: Calamine/Phenol (Menthol/Lanolin/Calamine/Znox 113 Gm Tube) 1 applic TOPICAL BID [facility]; Protocol Last Admin: 07/03/20 21:59 Dose: 1 applicatio Documented by: Dexamethasone Sodium Phosphate (Dexamethasone 4 Mg/Ml Vial) 6 mg IV DAILY [facility] Stop: 07/05/20 10:01 Last Admin: 07/03/20 09:49 Dose: 6 mg Documented by: Dextrose (Dextrose 50%-Water 25 Gm/50 Ml Disp.Syrin) 0 gm IV X1 PRN; Protocol PRN Reason: Hypoglycemia Enoxaparin Sodium (Enoxaparin 40 Mg/0.4 Ml Syringe) 40 mg SC BID [facility] Last Admin: 07/03/20 22:00 Dose: 40 mg Documented by: Glucagon (Glucagon 1 Mg/Ml Syringe) 1 mg IM .X1 PRN PRN Reason: Hypoglycemia Insulin Glargine (Insulin Glargine 100 Units/Ml Pen) 30 units SC BID [facility] Last Admin: 07/03/20 22:05 Dose: 30 u Documented by: Insulin Human Lispro (Insulin Lispro 100 Unit/Ml Insuln.Pen) 0 unit SC [facility]; Protocol Ondansetron HCl (Ondansetron 4 Mg/2 Ml Vial) 4 mg IV Q8H PRN PRN PRN Reason: NAUSEA/VOMITING Rivastigmine (Rivastigmine 9.5mg Patch) 1 patch TD DAILY [facility] Last Admin: 07/03/20 09:47 Dose: 1 patch Documented by: Sodium Chloride (0.9% Saline Lock 10 Ml Syringe) 10 - 40 ml IV UD PRN PRN Reason: SALINE FLUSH Last Admin: 07/03/20 22:07 Dose: 10 ml Documented by: STROKE Vital Signs/Narrative: Vital Signs Temp Pulse Resp BP Pulse Ox 07/04/20 06:37 116 H 07/04/20 06:31 97.7 F L 115 H 34 H 102/63 95 07/04/20 04:15 30 H 95 Medical Necessity - Tobacco Use Smoking Status: Never smoker Assessment/Plan All Active Problems SARS (severe acute respiratory syndrome) (Acute) Sepsis (Acute) This is a 70 years old female patient presented to the emergency room because of fever, shortness of breath and change in mental status, found to have acute bilateral COVID-19 pneumonia, acute cystitis with sepsis complicated by acute hypoxic respiratory failure, found to have acute cystitis and acute kidney injury as well as encephalopathy. #1 acute bilateral COVID-19 pneumonia/sepsis: PCT was 4. ID consult reviewed. ID stop vancomycin. On dexamethasone, remdesivir and Lovenox. Continue cefepime. D-dimer 2.48. CT angiogram chest shows dense consolidation in the left lower lobe but no evidence of pulmonary embolism. Urine culture showed no growth. 06/30: Continue treatment. Patient on cefepime. Seen by elementary librarian. 07/01: Continue above treatment. 07/02: On 6-day of IV antibiotic. 1 more day tomorrow. Leukocytosis with lymphopenia 07/03: Mild leukocytosis. Respiratory status is improving. Lung auscultation few coarse crepitations. 07/04: Patient completed antibiotic. #2 acute hypoxic respiratory failure with 19 bilateral pneumonia. Currently, she is on airvo FiO2 of 90 %. she has been requiring more oxygen. Mild fever T-max 99.5 Fahrenheit. 06/30: Discussed with the respiratory therapist. On 87% FiO2 to maintain pulse ox 92%. 07/01: Started on BiPAP. DuoNeb with Mucomyst inhalation. Lasix 40 mg IV 1 dose given. Patient can be started on dysphagia diet as found appropriate by speech therapist 07/03: Continue high flow oxygen, Airvo SUPPORT. Patient is on dysphagia supervised diet. #3 acute kidney injury/mild hypernatremia: Due to dehydration and poor oral intake. K resolved. BUN 33, creatinine 0.59. Continue IV fluid as she had IV contrast to prevent LETA. 06/30: IV fluid discontinued. 07/03: Sodium 152, K3.4. Seems patient is well diuresed. 07/04: Patient sodium 159 and chloride 124 suggestive of intravascular volume contraction. Even though patient is +2 L fluid balance, will hold off further diuretic. Monitor kidney function and CBC. #4 acute encephalopathy on baseline MRDD and cognitive impairment/mild dementia. Patient is incomprehensible. Apparently, she is confused, incoherent at baseline which may be worsened by acute infection with COVID-19. 07/04: Patient is more awake and alert and responds with few words like hungry. #5 type 2 diabetes mellitus: Blood sugar has been under fair control. She is on Lantus and sliding scale. 07/01: Glucose is elevated. Currently patient is n.p.o. Accu-Cheks with sliding scale. #6 MRDD/cognitive impairment/dementia: Continue Exelon patch, supportive treatment. #7 bipolar disorder/depression: Depakote, Effexor and Zoloft because of encephalopathy. #8 CODE STATUS: DNR CCA, no intubation. #9 DVT prophylaxis: Subcu Lovenox twice daily. Clinical Impression(s) from Imaging Studies Chest X-Ray 06/26/20 01:00 IMPRESSION: There is compressive atelectasis in the left lung base. Ill-defined subpleural groundglass opacities are seen more prominent in the lung bases , may represent atypical pneumonia or viral pneumonia (COVID-19 ?). There is a small left pleural effusion. Chest CTA 06/29/20 10:05 IMPRESSION: Dense consolidation of the left lower lobe. There is no evidence of pulmonary embolism. Mild increased markings at the right lung base. Microbiology Past 72 Hours 06/26/20 00:05 Blood Culture (Wb) - Left Forearm Blood Culture - Final No growth in 5 days. 06/26/20 00:25 Blood Culture (Wb) - Right Forearm Blood Culture - Final No growth in 5 days. Laboratory Results 07/03/20 14:36: POC Glucose 259 H 07/03/20 19:09: POC Glucose 291 H 07/03/20 22:04: POC Glucose 381 H 07/04/20 02:17: POC Glucose 218 H 07/04/20 06:29: POC Glucose 134 H 07/04/20 09:14: Sodium 159 H, Potassium 3.5, Chloride 124 H, Carbon Dioxide 28.0, Anion Gap 7, BUN 52 H, Creatinine 0.90, Estim Creat Clear Calc 56.01, Est GFR (MDRD) Af Amer 80, Est GFR (MDRD) Non-Af 66, BUN/Creatinine Ratio 57.6 H, Glucose 173 H, Calcium 9.0 Inpatient E&M: 44893 Subs Hosp L2
--- NOTE | 2020-07-04 07:47 | PN_ITS ---
Patient Problems: Active and Suspected Problems SARS (severe acute respiratory syndrome) (Acute) Sepsis (Acute) Subjective: The patient was seen and examined at the bedside this morning. Events from the last 24 hours have been reviewed. The patient is currently afebrile, hemodynamically stable and maintaining appropriate oxygen saturations on Airvo with an FiO2 requirement of 60%. Morning lab work is pending. The patient is currently documented to be overall net -2 L for the hospital admission. Objective: The patient's most recent lab work, culture data and imaging studies have all been personally reviewed. - Physical Exam Vitals/I&O's: Vital Signs Temp Pulse Resp BP Pulse Ox 97.7 F L 116 H 34 H 102/63 95 07/04/20 06:31 07/04/20 06:37 07/04/20 06:31 07/04/20 06:31 07/04/20 06:31 Oxygen Flow Rate (L/min) 55 Oxygen Delivery Method Airvo Weight: 136 lb 0.015 oz Body Mass Index (BMI) 21.6 Finger Stick Blood Glucose 178 Intake and Output for Last 24 Hours 07/02/20 07/03/20 07/04/20 23:59 23:59 23:59 Intake Total 100 / 100 380 / 380 Output Total 1175 / 1175 425 / 425 250 / 250 Balance -1075 / -1075 -45 / -45 -250 / -250 General: Alert, Cooperative, Confused, - - Fatigued in appearance HEENT: Atraumatic, Normocephalic Oral: Dry Mucosa Neck: Supple, No Nodes, Trachea Midline Lungs: Diminished, Tachypneic Cardiovascular: Normal S1, Normal S2, No murmurs, Tachycardic Abdomen: Bowel Sounds Present, Soft, Non Tender Extremities: No clubbing, No cyanosis, No edema Skin: - - No significant change from previous Musculoskeletal: No Tenderness to Palpation of Joints or Extremities Lymphatic: No Cervical, Supraclavicular, or Inguinal Adenopathy Neurological: - - No focal neurological deficits. Psych/Mental Status: Flat Affect Labs (Last 48 Hours) 07/02/20 07/02/20 07/02/20 07:50 07:50 09:34 WBC 13.5 H RBC 3.33 L Hgb 10.2 L Hct 34.2 L MCV 102.7 H MCH 30.6 MCHC 29.8 L RDW Std Deviation 57.2 H RDW Coeff of Kim 15.3 H Plt Count 418 MPV 11.0 Immature Gran % (Auto) 1.000 H Neut % (Auto) 80.9 H Lymph % (Auto) 13.9 L [place] % (Auto) 3.9 Eos % (Auto) 0.1 Baso % (Auto) 0.2 Absolute Neuts (auto) 10.9 H Absolute Lymphs (auto) 1.88 Nucleated RBC % 0.1 Sodium 153 H Potassium 3.6 Chloride 120 H Carbon Dioxide 27.0 Anion Gap 6 BUN 43 H Creatinine 0.74 Estim Creat Clear Calc 50.41 Est GFR (MDRD) Af Amer 101 Est GFR (MDRD) Non-Af 83 BUN/Creatinine Ratio 58.4 H Glucose 213 H Calcium 8.5 Total Bilirubin 0.60 AST 57 H ALT 46 Alkaline Phosphatase 86 Total Protein 5.9 L Albumin 2.3 L Globulin 3.6 Albumin/Globulin Ratio 0.6 L POC Glucose 201 H 07/02/20 07/02/20 07/02/20 13:43 17:39 21:46 WBC RBC Hgb Hct MCV MCH MCHC RDW Std Deviation RDW Coeff of Kim Plt Count MPV Immature Gran % (Auto) Neut % (Auto) Lymph % (Auto) [place] % (Auto) Eos % (Auto) Baso % (Auto) Absolute Neuts (auto) Absolute Lymphs (auto) Nucleated RBC % Sodium Potassium Chloride Carbon Dioxide Anion Gap BUN Creatinine Estim Creat Clear Calc Est GFR (MDRD) Af Amer Est GFR (MDRD) Non-Af BUN/Creatinine Ratio Glucose Calcium Total Bilirubin AST ALT Alkaline Phosphatase Total Protein Albumin Globulin Albumin/Globulin Ratio POC Glucose 274 H 287 H 188 H 07/03/20 07/03/20 07/03/20 02:06 06:27 06:27 WBC 13.3 H RBC 3.45 L Hgb 10.4 L Hct 36.3 L MCV 105.2 H MCH 30.1 MCHC 28.7 L RDW Std Deviation 60.2 H RDW Coeff of Kim 15.4 H Plt Count 372 MPV 11.2 Immature Gran % (Auto) 0.800 Neut % (Auto) 76.4 H Lymph % (Auto) 18.3 L [place] % (Auto) 4.2 Eos % (Auto) 0.2 Baso % (Auto) 0.1 Absolute Neuts (auto) 10.2 H Absolute Lymphs (auto) 2.44 Nucleated RBC % 0.2 Sodium 152 H Potassium 3.4 L Chloride 117 H Carbon Dioxide 29.0 Anion Gap 6 BUN 54 H Creatinine 0.99 Estim Creat Clear Calc 50.91 Est GFR (MDRD) Af Amer 72 Est GFR (MDRD) Non-Af 59 L BUN/Creatinine Ratio 54.7 H Glucose 230 H Calcium 9.0 Total Bilirubin 0.50 AST 64 H ALT 50 Alkaline Phosphatase 91 Total Protein 6.9 Albumin 2.4 L Globulin 4.5 H Albumin/Globulin Ratio 0.5 L POC Glucose 191 H 07/03/20 07/03/20 07/03/20 06:49 06:50 09:51 WBC RBC Hgb Hct MCV MCH MCHC RDW Std Deviation RDW Coeff of Kim Plt Count MPV Immature Gran % (Auto) Neut % (Auto) Lymph % (Auto) [place] % (Auto) Eos % (Auto) Baso % (Auto) Absolute Neuts (auto) Absolute Lymphs (auto) Nucleated RBC % Sodium Cancelled Potassium Cancelled Chloride Cancelled Carbon Dioxide Cancelled Anion Gap Cancelled BUN Cancelled Creatinine Cancelled Estim Creat Clear Calc Cancelled Est GFR (MDRD) Af Amer Cancelled Est GFR (MDRD) Non-Af Cancelled BUN/Creatinine Ratio Cancelled Glucose Cancelled Calcium Cancelled Total Bilirubin AST ALT Alkaline Phosphatase Total Protein Albumin Globulin Albumin/Globulin Ratio POC Glucose 210 H 229 H 07/03/20 07/03/20 07/03/20 14:36 19:09 22:04 WBC RBC Hgb Hct MCV MCH MCHC RDW Std Deviation RDW Coeff of Kim Plt Count MPV Immature Gran % (Auto) Neut % (Auto) Lymph % (Auto) [place] % (Auto) Eos % (Auto) Baso % (Auto) Absolute Neuts (auto) Absolute Lymphs (auto) Nucleated RBC % Sodium Potassium Chloride Carbon Dioxide Anion Gap BUN Creatinine Estim Creat Clear Calc Est GFR (MDRD) Af Amer Est GFR (MDRD) Non-Af BUN/Creatinine Ratio Glucose Calcium Total Bilirubin AST ALT Alkaline Phosphatase Total Protein Albumin Globulin Albumin/Globulin Ratio POC Glucose 259 H 291 H 381 H 07/04/20 07/04/20 02:17 06:29 WBC RBC Hgb Hct MCV MCH MCHC RDW Std Deviation RDW Coeff of Kim Plt Count MPV Immature Gran % (Auto) Neut % (Auto) Lymph % (Auto) [place] % (Auto) Eos % (Auto) Baso % (Auto) Absolute Neuts (auto) Absolute Lymphs (auto) Nucleated RBC % Sodium Potassium Chloride Carbon Dioxide Anion Gap BUN Creatinine Estim Creat Clear Calc Est GFR (MDRD) Af Amer Est GFR (MDRD) Non-Af BUN/Creatinine Ratio Glucose Calcium Total Bilirubin AST ALT Alkaline Phosphatase Total Protein Albumin Globulin Albumin/Globulin Ratio POC Glucose 218 H 134 H Clinical Impression(s) from Imaging Studies Chest X-Ray 06/26/20 01:00 IMPRESSION: There is compressive atelectasis in the left lung base. Ill-defined subpleural groundglass opacities are seen more prominent in the lung bases , may represent atypical pneumonia or viral pneumonia (COVID-19 ?). There is a small left pleural effusion. Electronically Signed: Naa Collins, at 1:31 EST Tel , Service support , Chest CTA 06/29/20 10:05 IMPRESSION: Dense consolidation of the left lower lobe. There is no evidence of pulmonary embolism. Mild increased markings at the right lung base. Electronically Signed: Barrett Liu, at 11:17 EST , Service support , Current Medications Acetaminophen (Acetaminophen 650 Mg Suppository) 650 mg RECTAL Q4H PRN PRN PRN Reason: Pain Score 1-10/Temp > 100.7 F Last Admin: 07/02/20 21:39 Dose: 650 mg Documented by: Acetylcysteine (Acetylcysteine 800 Mg/4 Ml Vial.Neb.) 800 mg INHALATION Q6H.RT LYN Last Admin: 07/04/20 01:33 Dose: 800 mg Documented by: Albuterol/Ipratropium (Ipratropium/Albuterol Sulfate 3 Ml Ampul.Neb) 3 ml INHALATION Q6H.RT LYN Last Admin: 07/04/20 01:33 Dose: 3 ml Documented by: Calamine/Phenol (Menthol/Lanolin/Calamine/Znox 113 Gm Tube) 1 applic TOPICAL BID [facility]; Protocol Last Admin: 07/03/20 21:59 Dose: 1 applicatio Documented by: Dexamethasone Sodium Phosphate (Dexamethasone 4 Mg/Ml Vial) 6 mg IV DAILY [facility] Stop: 07/05/20 10:01 Last Admin: 07/03/20 09:49 Dose: 6 mg Documented by: Dextrose (Dextrose 50%-Water 25 Gm/50 Ml Disp.Syrin) 0 gm IV X1 PRN; Protocol PRN Reason: Hypoglycemia Enoxaparin Sodium (Enoxaparin 40 Mg/0.4 Ml Syringe) 40 mg SC BID [facility] Last Admin: 07/03/20 22:00 Dose: 40 mg Documented by: Glucagon (Glucagon 1 Mg/Ml Syringe) 1 mg IM .X1 PRN PRN Reason: Hypoglycemia Insulin Glargine (Insulin Glargine 100 Units/Ml Pen) 30 units SC BID [facility] Last Admin: 07/03/20 22:05 Dose: 30 u Documented by: Insulin Human Lispro (Insulin Lispro 100 Unit/Ml Insuln.Pen) 0 unit SC [facility]; Protocol Ondansetron HCl (Ondansetron 4 Mg/2 Ml Vial) 4 mg IV Q8H PRN PRN PRN Reason: NAUSEA/VOMITING Rivastigmine (Rivastigmine 9.5mg Patch) 1 patch TD DAILY [facility] Last Admin: 07/03/20 09:47 Dose: 1 patch Documented by: Sodium Chloride (0.9% Saline Lock 10 Ml Syringe) 10 - 40 ml IV UD PRN PRN Reason: SALINE FLUSH Last Admin: 07/03/20 22:07 Dose: 10 ml Documented by: Medical Necessity - Tobacco Use Smoking Status: Never smoker Assessment/Plan All Active Problems SARS (severe acute respiratory syndrome) (Acute) Sepsis (Acute) RECOMMENDATIONS: 1. Continue to wean FiO2 to maintain oxygen saturations at or above 90%. 2. Continue Lovenox as ordered. 3. Continue Decadron to complete treatment course. 4. Encourage incentive spirometer use. 5. Recommend diuretic challenge as tolerated by hemodynamics and renal function. IMPRESSIONS: 1. Acute hypoxemic respiratory failure secondary to COVID-19 pneumonia The patient continues to have significant oxygen requirements. She has completed her treatment courses of remdesivir and remains on Decadron. Continue to wean supplemental oxygen as tolerated to maintain saturations at or above 90%. Recommend continued attempts at diuresis as tolerated by hemodynamics and renal function. 2. Diabetes mellitus/baseline MRDD/hyperlipidemia Complicates care, management, recovery and prognosis. Continue Lantus and sliding scale insulin coverage. This note was generated with [employer] software. It may contain incorrect words, spelling, and punctuation that were not noted in checking the note before signing. Inpatient E&M: 60227 Subs Hosp L2
[2020-07-04] MEDS: 0.9% Saline Lock 10 ML Syringe IV (07:59)
[2020-07-04] MEDS: Furosemide 40 MG/4 ML Vial IV (07:59)
[2020-07-04] MEDS: dexAMETHasone 4 MG/ML Vial 6 MG IV (08:00)
[2020-07-04] MEDS: Enoxaparin 40 MG/0.4 ML Syringe SC ×2 (08:01→21:56)
[2020-07-04] MEDS: Rivastigmine 9.5mg Patch 1 PATCH TD (08:04)
[2020-07-04] MEDS: Menthol/Lanolin/Calamine/Znox 113 GM Tube 1 APPLIC TOPICAL ×2 (08:06→22:04)
[2020-07-04 10:14] LABS: Anion Gap 7 (5-15); BUN 52 mg/dL (7-18); BUN/Creat Ratio 57.6 RATIO (10-20); Chloride 124 mmol/L (98-107); EST Glomerular Filtration Rate 66 mL/min (>60); Est Glom Filt Rate - Afr Amer 80 mL/min (>60); Estimated Creatinine Clearance 56.01 ml/min; Glucose 173 mg/dL (74-106); Potassium 3.5 mmol/L (3.5-5.1); Sodium Level 159 mmol/L (136-145)
[2020-07-04 12:36] LABS: Bedside Glucose 441 mg/dL (70-110)
[2020-07-04 17:05] LABS: Bedside Glucose 389 mg/dL (70-110)
[2020-07-04] MEDS: Acetaminophen 650 MG Suppository RECTAL (21:55)
[2020-07-04 22:20] LABS: Bedside Glucose 336 mg/dL (70-110)
[2020-07-05] VITALS (24 sets, daily range): BP systolic 95–113; BP diastolic 57–71; PULSE 105–134; RESP 16–36; TEMP 36.6–38.4; O2SAT 92–98
[2020-07-05] MEDS: Acetaminophen 650 MG Suppository RECTAL (02:24)
--- NOTE | 2020-07-05 02:54 | NURSING ---
RECTAL SUPP GIVEN, WHEN INSERTING IT WAS FOUND THAT THE PT HAS A LOT OF STOOL NEAR THE RECTUM, DIGITAL REMOVAL OF STOOL DONE AND SUPP GIVEN.
[2020-07-05] MEDS: Acetaminophen 500 MG Tablet 1000 MG PO (04:36)
[2020-07-05 06:03] LABS: Absolute Lymphocyte Count 2.91 X10^3/uL (0.83-4.51); Absolute Neutrophil Count 11.7 X10^3/uL (2.0-7.7); Basophil# 0.02 X10^3/uL; Basophil% 0.1 % (0-1); Hematocrit 34.6 % (37-47); Lymphocyte # 2.91 X10^3/ul (4.0); Mean Corp Hgb Conc 28.9 g/dL (32-36); Mean Corpuscular Hgb 30.7 pg (27.0-32.0); Mean Corpuscular Volume 106.1 fL (81-99); Mean Platelet Vol. 11.4 fl (6.2-12.0); Monocyte# 0.59 X10^3/uL; Monocyte% 3.8 % (0-10); NRBC Flagged by Analyzer 0.1 % (0-5); Neutrophil # 11.71 X10^3/uL (2.7-7.7); Neutrophil % 76.4 % (47-70); Platelet Count 322 K/mm3 (150-450); RBC Distribution Width CV 15.7 % (11.6-14.6); Red Blood Count 3.26 M/mm3 (4.2-5.4); White Blood Count 15.3 K/mm3 (4.4-11.0)
[2020-07-05 06:40] LABS: ALB/GLOB Ratio 0.5 RATIO (0.9-2.4); AST(SGOT) 43 U/L (15-37); Alanine Aminotransfer ALT/SGPT 38 U/L (13-56); Albumin, Serum 2.3 g/dL (3.2-5.0); Alkaline Phosphatase 81 U/L (45-117); Anion Gap 9 (5-15); BUN 64 mg/dL (7-18); Calcium,Total 9.2 mg/dL (8.5-10.1); Chloride 122 mmol/L (98-107); Creatinine, Serum 1.39 mg/dL (0.55-1.02); EST Glomerular Filtration Rate 40 mL/min (>60); Est Glom Filt Rate - Afr Amer 48 mL/min (>60); Estimated Creatinine Clearance 36.26 ml/min; Globulin 4.2 g/dL (2.2-4.2); Glucose 279 mg/dL (74-106); Magnesium 2.3 mg/dL (1.6-2.6); Potassium 3.4 mmol/L (3.5-5.1); Protein, Total 6.5 g/dL (6.4-8.2); Sodium Level 156 mmol/L (136-145)
[2020-07-05] MEDS: Insulin Lispro 100 UNIT/ML INSULN.PEN SC ×2 (07:00→17:29)
[2020-07-05] MEDS: Ipratropium/Albuterol Sulfate 3 ML AMPUL.NEB INHALATION ×3 (07:05→20:27)
[2020-07-05 07:16] LABS: Bedside Glucose 264 mg/dL (70-110)
[2020-07-05] MEDS: Enoxaparin 40 MG/0.4 ML Syringe SC ×2 (09:17→22:20)
[2020-07-05] MEDS: Menthol/Lanolin/Calamine/Znox 113 GM Tube 1 APPLIC TOPICAL ×2 (09:17→22:18)
[2020-07-05] MEDS: Rivastigmine 9.5mg Patch 1 PATCH TD (09:17)
[2020-07-05] MEDS: dexAMETHasone 4 MG/ML Vial 6 MG IV (09:17)
--- NOTE | 2020-07-05 10:12 | CASEMGMT ---
VIRGINIE faxed updates to [place] letting them know she is still not ready for discharge. Jesika HINOJOSA LINEMAN
[2020-07-05 12:55] LABS: Bedside Glucose 161 mg/dL (70-110)
--- NOTE | 2020-07-05 15:58 | PN_ITS ---
Patient Problems: Active and Suspected Problems SARS (severe acute respiratory syndrome) (Acute) Sepsis (Acute) Subjective: Patient did okay overnight. Patient remains on Airvo to maintain appropriate saturations. Patient is not very interactive and did not answer any my questions. Patient did readily open her eyes and track. - Physical Exam Vitals/I&O's: Vital Signs Temp Pulse Resp BP Pulse Ox 37.7 C H 120 H 30 H 105/63 92 07/05/20 14:51 07/05/20 14:51 07/05/20 14:51 07/05/20 14:51 07/05/20 14:51 Oxygen Flow Rate (L/min) 50 Oxygen Delivery Method Airvo Weight: 61.689 kg Body Mass Index (BMI) 21.6 Finger Stick Blood Glucose 178 Intake and Output for Last 24 Hours 07/03/20 07/04/20 07/05/20 23:59 23:59 23:59 Intake Total 380 / 380 480 / 480 Output Total 425 / 425 875 / 875 275 / 275 Balance -45 / -45 -395 / -395 -275 / -275 General: Alert, Non-Cooperative, - - Resting comfortably HEENT: Atraumatic, PERRLA, EOMI, Normocephalic Oral: Moist Mucosa, No Gingival or Mucosal Lesions/ Ulcerations Neck: Supple, No JVD, No Nodes, Trachea Midline Lungs: No rhonchi, No wheeze, No rales, Diminished, Tachypneic, - - Shallow respirations Cardiovascular: Normal S1, Normal S2, No murmurs, No rub noted, No Gallop, Tachycardic Abdomen: Bowel Sounds Present, Soft, Non Tender, Non-Distended Extremities: No clubbing, No cyanosis, No edema Skin: No rashes Musculoskeletal: No Tenderness to Palpation of Joints or Extremities Lymphatic: No Cervical, Supraclavicular, or Inguinal Adenopathy Neurological: - - No focal neurologic deficit. Appears stable from previous evaluation Psych/Mental Status: Flat Affect Laboratory Results 07/04/20 16:47: POC Glucose 389 H 07/04/20 22:01: POC Glucose 336 H 07/05/20 05:56: WBC 15.3 H, RBC 3.26 L, Hgb 10.0 L, Hct 34.6 L, MCV 106.1 H, MCH 30.7, MCHC 28.9 L, RDW Std Deviation 61.0 H, RDW Coeff of Kim 15.7 H, Plt Count 322, MPV 11.4, Immature Gran % (Auto) 0.700, Neut % (Auto) 76.4 H, Lymph % (Auto) 19.0, [place] % (Auto) 3.8, Eos % (Auto) 0.0, Baso % (Auto) 0.1, Absolute Neuts (auto) 11.7 H, Absolute Lymphs (auto) 2.91, Nucleated RBC % 0.1 07/05/20 05:56: Sodium 156 H, Potassium 3.4 L, Chloride 122 H, Carbon Dioxide 25.0, Anion Gap 9, BUN 64 H, Creatinine 1.39 H, Estim Creat Clear Calc 36.26, Est GFR (MDRD) Af Amer 48 L, Est GFR (MDRD) Non-Af 40 L, BUN/Creatinine Ratio 46.0 H, Glucose 279 H, Calcium 9.2, Magnesium 2.3, Total Bilirubin 0.30, AST 43 H, ALT 38, Alkaline Phosphatase 81, Total Protein 6.5, Albumin 2.3 L, Globulin 4.2, Albumin/Globulin Ratio 0.5 L 07/05/20 06:58: POC Glucose 264 H 07/05/20 11:24: POC Glucose 161 H Current Medications Acetaminophen (Acetaminophen 650 Mg Suppository) 650 mg RECTAL Q4H PRN PRN PRN Reason: Pain Score 1-10/Temp > 100.7 F Last Admin: 07/05/20 02:24 Dose: 650 mg Documented by: Albuterol/Ipratropium (Ipratropium/Albuterol Sulfate 3 Ml Ampul.Neb) 3 ml INHALATION Q6H.RT LYN Last Admin: 07/05/20 13:52 Dose: 3 ml Documented by: Calamine/Phenol (Menthol/Lanolin/Calamine/Znox 113 Gm Tube) 1 applic TOPICAL BID [facility]; Protocol Last Admin: 07/05/20 09:17 Dose: 1 applicatio Documented by: Dextrose (Dextrose 50%-Water 25 Gm/50 Ml Disp.Syrin) 0 gm IV X1 PRN; Protocol PRN Reason: Hypoglycemia Enoxaparin Sodium (Enoxaparin 40 Mg/0.4 Ml Syringe) 40 mg SC BID [facility] Last Admin: 07/05/20 09:17 Dose: 40 mg Documented by: Glucagon (Glucagon 1 Mg/Ml Syringe) 1 mg IM .X1 PRN PRN Reason: Hypoglycemia Insulin Glargine (Insulin Glargine 100 Units/Ml Pen) 30 units SC BID [facility] Last Admin: 07/05/20 09:20 Dose: 30 u Documented by: Insulin Human Lispro (Insulin Lispro 100 Unit/Ml Insuln.Pen) 0 unit SC ACHS [facility]; Protocol Last Admin: 07/05/20 11:29 Dose: Not Given Documented by: Ondansetron HCl (Ondansetron 4 Mg/2 Ml Vial) 4 mg IV Q8H PRN PRN PRN Reason: NAUSEA/VOMITING Rivastigmine (Rivastigmine 9.5mg Patch) 1 patch TD DAILY [facility] Last Admin: 07/05/20 09:17 Dose: 1 patch Documented by: Sodium Chloride (0.9% Saline Lock 10 Ml Syringe) 10 - 40 ml IV UD PRN PRN Reason: SALINE FLUSH Last Admin: 07/04/20 07:59 Dose: 30 ml Documented by: Medical Necessity - Tobacco Use Smoking Status: Never smoker Assessment/Plan All Active Problems SARS (severe acute respiratory syndrome) (Acute) Sepsis (Acute) RECOMMENDATIONS: 1. Continue to wean FiO2 to maintain oxygen saturations at or above 90%. 2. Continue Lovenox as ordered. 3. Out of bed as tolerated 4. Encourage incentive spirometer use. 5. Recommend diuretic challenge as tolerated by hemodynamics and renal function. IMPRESSIONS: 1. Acute hypoxemic respiratory failure secondary to COVID-19 pneumonia The patient continues to have significant oxygen requirements. She has completed her treatment courses of remdesivir and Decadron. Continue to wean supplemental oxygen as tolerated to maintain saturations at or above 90%. Recommend continued attempts at diuresis as tolerated by hemodynamics and renal function. Recovery limited secondary to body habitus, mental status and patient participation. Hold on diuresis secondary to hypernatremia and hyperchloremia 2. Diabetes mellitus/baseline MRDD/hyperlipidemia Complicates care, management, recovery and prognosis. Continue Lantus and sliding scale insulin coverage. Inpatient E&M: 58331 [facility] Hosp L2
--- NOTE | 2020-07-05 16:08 | PN.ID_ITS ---
Patient Problems: Active and Suspected Problems SARS (severe acute respiratory syndrome) (Acute) Sepsis (Acute) Subjective: Opens eyes to stim, did have fever overnight - Physical Exam Vitals/I&O's: Vital Signs Temp Pulse Resp BP Pulse Ox 99.9 F H 120 H 30 H 105/63 92 07/05/20 14:51 07/05/20 14:51 07/05/20 14:51 07/05/20 14:51 07/05/20 14:51 Oxygen Flow Rate (L/min) 50 Oxygen Delivery Method Airvo Weight: 61.689 kg Body Mass Index (BMI) 21.6 Finger Stick Blood Glucose 178 Intake and Output for Last 24 Hours 07/03/20 07/04/20 07/05/20 23:59 23:59 23:59 Intake Total 380 / 380 480 / 480 Output Total 425 / 425 875 / 875 275 / 275 Balance -45 / -45 -395 / -395 -275 / -275 General: No apparent distress, Non-Cooperative Lungs: Diminished Cardiovascular: Regular rate, Regular Rhythm Abdomen: Soft, Non Tender, Non-Distended Skin: No rashes Laboratory Results 07/04/20 16:47: POC Glucose 389 H 07/04/20 22:01: POC Glucose 336 H 07/05/20 05:56: WBC 15.3 H, RBC 3.26 L, Hgb 10.0 L, Hct 34.6 L, MCV 106.1 H, MCH 30.7, MCHC 28.9 L, RDW Std Deviation 61.0 H, RDW Coeff of Kim 15.7 H, Plt Count 322, MPV 11.4, Immature Gran % (Auto) 0.700, Neut % (Auto) 76.4 H, Lymph % (Auto) 19.0, [place] % (Auto) 3.8, Eos % (Auto) 0.0, Baso % (Auto) 0.1, Absolute Neuts (auto) 11.7 H, Absolute Lymphs (auto) 2.91, Nucleated RBC % 0.1 07/05/20 05:56: Sodium 156 H, Potassium 3.4 L, Chloride 122 H, Carbon Dioxide 25.0, Anion Gap 9, BUN 64 H, Creatinine 1.39 H, Estim Creat Clear Calc 36.26, Est GFR (MDRD) Af Amer 48 L, Est GFR (MDRD) Non-Af 40 L, BUN/Creatinine Ratio 46.0 H, Glucose 279 H, Calcium 9.2, Magnesium 2.3, Total Bilirubin 0.30, AST 43 H, ALT 38, Alkaline Phosphatase 81, Total Protein 6.5, Albumin 2.3 L, Globulin 4.2, Albumin/Globulin Ratio 0.5 L 07/05/20 06:58: POC Glucose 264 H 07/05/20 11:24: POC Glucose 161 H Current Medications Acetaminophen (Acetaminophen 650 Mg Suppository) 650 mg RECTAL Q4H PRN PRN PRN Reason: Pain Score 1-10/Temp > 100.7 F Last Admin: 07/05/20 02:24 Dose: 650 mg Documented by: Albuterol/Ipratropium (Ipratropium/Albuterol Sulfate 3 Ml Ampul.Neb) 3 ml INHALATION Q6H.RT [facility] Last Admin: 07/05/20 13:52 Dose: 3 ml Documented by: Calamine/Phenol (Menthol/Lanolin/Calamine/Znox 113 Gm Tube) 1 applic TOPICAL BID [facility]; Protocol Last Admin: 07/05/20 09:17 Dose: 1 applicatio Documented by: Dextrose (Dextrose 50%-Water 25 Gm/50 Ml Disp.Syrin) 0 gm IV X1 PRN; Protocol PRN Reason: Hypoglycemia Enoxaparin Sodium (Enoxaparin 40 Mg/0.4 Ml Syringe) 40 mg SC BID [facility] Last Admin: 07/05/20 09:17 Dose: 40 mg Documented by: Glucagon (Glucagon 1 Mg/Ml Syringe) 1 mg IM .X1 PRN PRN Reason: Hypoglycemia Insulin Glargine (Insulin Glargine 100 Units/Ml Pen) 30 units SC BID [facility] Last Admin: 07/05/20 09:20 Dose: 30 u Documented by: Insulin Human Lispro (Insulin Lispro 100 Unit/Ml Insuln.Pen) 0 unit SC ACHS [facility]; Protocol Last Admin: 07/05/20 11:29 Dose: Not Given Documented by: Ondansetron HCl (Ondansetron 4 Mg/2 Ml Vial) 4 mg IV Q8H PRN PRN PRN Reason: NAUSEA/VOMITING Rivastigmine (Rivastigmine 9.5mg Patch) 1 patch TD DAILY [facility] Last Admin: 07/05/20 09:17 Dose: 1 patch Documented by: Sodium Chloride (0.9% Saline Lock 10 Ml Syringe) 10 - 40 ml IV UD PRN PRN Reason: SALINE FLUSH Last Admin: 07/04/20 07:59 Dose: 30 ml Documented by: Medical Necessity - Tobacco Use Smoking Status: Never smoker Route of nutrition/ use of supplements: [] Nutritional Intake: [] IV Site: [] Culp Catheter: [] - Assessment/Plan Antibiotics: [] Assessment/Plan: [] Active and Suspected Problems SARS (severe acute respiratory syndrome) (Acute) Sepsis (Acute) covid with hypoxia, encephalopathy, persistent fever - on empiric cefepime. Cxs neg so far, PCT was 4. Comleted dex, on lovenox 30mg bid. Completed remdesivir. CTA showed no PE but dense infiltrate. Still with high O2 reqs. Fever last night. Off cefepime. Will follow
[2020-07-05 17:37] LABS: Bedside Glucose 218 mg/dL (70-110)
--- NOTE | 2020-07-05 18:43 | PCM.PROGNOTE ---
Patient Problems: Active and Suspected Problems SARS (severe acute respiratory syndrome) (Acute) Sepsis (Acute) Subjective: Patient was seen and examined today, she does not appear to any distress, she does not respond to verbal stimuli, there is some response to painful stimuli noted. Patient remains on high flow oxygen at this time (Airvo) - Physical Exam Vitals/I&O's: Vital Signs Temp Pulse Resp BP Pulse Ox 99.8 F H 119 H 30 H 102/63 96 07/05/20 17:26 07/05/20 17:26 07/05/20 17:26 07/05/20 17:26 07/05/20 17:26 Oxygen Flow Rate (L/min) 50 Oxygen Delivery Method Airvo Weight: 61.689 kg Body Mass Index (BMI) 21.6 Finger Stick Blood Glucose 178 Intake and Output for Last 24 Hours 07/03/20 07/04/20 07/05/20 23:59 23:59 23:59 Intake Total 380 / 380 480 / 480 Output Total 425 / 425 875 / 875 425 / 425 Balance -45 / -45 -395 / -395 -425 / -425 General: No apparent distress, Well developed, Lethargic HEENT: Atraumatic, PERRLA, EOMI, Normocephalic Oral: Moist Mucosa Neck: Supple, No JVD, Trachea Midline, Thyroid Normal Size and Texture Lungs: Clear to auscultation, No rhonchi, No wheeze, Diminished Cardiovascular: Regular rate, Regular Rhythm, Normal S1, Normal S2, No murmurs, PMI Normal Abdomen: Bowel Sounds Present, Soft, Non Tender, Non-Distended Extremities: No clubbing, No cyanosis, No edema, Capillary Refill Less than 3 Seconds Skin: No rashes, No breakdown Musculoskeletal: No Tenderness to Palpation of Joints or Extremities Neurological: Cranial nerves II-XII grossly intact, Neuro grossly intact Psych/Mental Status: - - Somnolent and lethargic Laboratory Results 07/04/20 22:01: POC Glucose 336 H 07/05/20 05:56: WBC 15.3 H, RBC 3.26 L, Hgb 10.0 L, Hct 34.6 L, MCV 106.1 H, MCH 30.7, MCHC 28.9 L, RDW Std Deviation 61.0 H, RDW Coeff of Kim 15.7 H, Plt Count 322, MPV 11.4, Immature Gran % (Auto) 0.700, Neut % (Auto) 76.4 H, Lymph % (Auto) 19.0, Mcdowell % (Auto) 3.8, Eos % (Auto) 0.0, Baso % (Auto) 0.1, Absolute Neuts (auto) 11.7 H, Absolute Lymphs (auto) 2.91, Nucleated RBC % 0.1 07/05/20 05:56: Sodium 156 H, Potassium 3.4 L, Chloride 122 H, Carbon Dioxide 25.0, Anion Gap 9, BUN 64 H, Creatinine 1.39 H, Estim Creat Clear Calc 36.26, Est GFR (MDRD) Af Amer 48 L, Est GFR (MDRD) Non-Af 40 L, BUN/Creatinine Ratio 46.0 H, Glucose 279 H, Calcium 9.2, Magnesium 2.3, Total Bilirubin 0.30, AST 43 H, ALT 38, Alkaline Phosphatase 81, Total Protein 6.5, Albumin 2.3 L, Globulin 4.2, Albumin/Globulin Ratio 0.5 L 07/05/20 06:58: POC Glucose 264 H 07/05/20 11:24: POC Glucose 161 H 07/05/20 17:24: POC Glucose 218 H Current Medications Acetaminophen (Acetaminophen 650 Mg Suppository) 650 mg RECTAL Q4H PRN PRN PRN Reason: Pain Score 1-10/Temp > 100.7 F Last Admin: 07/05/20 02:24 Dose: 650 mg Documented by: Albuterol/Ipratropium (Ipratropium/Albuterol Sulfate 3 Ml Ampul.Neb) 3 ml INHALATION Q6H.RT [facility] Last Admin: 07/05/20 13:52 Dose: 3 ml Documented by: Calamine/Phenol (Menthol/Lanolin/Calamine/Znox 113 Gm Tube) 1 applic TOPICAL BID [facility]; Protocol Last Admin: 07/05/20 09:17 Dose: 1 applicatio Documented by: Dextrose (Dextrose 50%-Water 25 Gm/50 Ml Disp.Syrin) 0 gm IV X1 PRN; Protocol PRN Reason: Hypoglycemia Enoxaparin Sodium (Enoxaparin 40 Mg/0.4 Ml Syringe) 40 mg SC BID [facility] Last Admin: 07/05/20 09:17 Dose: 40 mg Documented by: Glucagon (Glucagon 1 Mg/Ml Syringe) 1 mg IM .X1 PRN PRN Reason: Hypoglycemia Insulin Glargine (Insulin Glargine 100 Units/Ml Pen) 30 units SC BID [facility] Last Admin: 07/05/20 09:20 Dose: 30 u Documented by: Insulin Human Lispro (Insulin Lispro 100 Unit/Ml Insuln.Pen) 0 unit SC ACHS [facility]; Protocol Last Admin: 07/05/20 17:29 Dose: 4 units Documented by: Ondansetron HCl (Ondansetron 4 Mg/2 Ml Vial) 4 mg IV Q8H PRN PRN PRN Reason: NAUSEA/VOMITING Rivastigmine (Rivastigmine 9.5mg Patch) 1 patch TD DAILY [facility] Last Admin: 07/05/20 09:17 Dose: 1 patch Documented by: Sodium Chloride (0.9% Saline Lock 10 Ml Syringe) 10 - 40 ml IV UD PRN PRN Reason: SALINE FLUSH Last Admin: 07/04/20 07:59 Dose: 30 ml Documented by: Medical Necessity - Tobacco Use Smoking Status: Never smoker Assessment/Plan All Active Problems SARS (severe acute respiratory syndrome) (Acute) Sepsis (Acute) #1 acute hypoxic respiratory failure secondary to COVID-19 pneumonia-prognosis overall remains poor due to the patient's multiple medical problems. I will obtain a repeat chest x-ray tomorrow morning. #2 chronic cognitive impairment/MRDD #3 bilateral COVID-19 pneumonia #4 type 2 diabetes-blood sugars will be monitored, patient will be administered sliding scale insulin as needed #5 sepsis secondary to acute COVID-19 infection Inpatient E&M: 76187 [facility] Hosp L2
[2020-07-05 23:21] LABS: Bedside Glucose 128 mg/dL (70-110)
[2020-07-06] VITALS (23 sets, daily range): BP systolic 92–107; BP diastolic 55–71; PULSE 100–129; RESP 20–36; TEMP 36.6–37.1; O2SAT 91–98
[2020-07-06] MEDS: Ipratropium/Albuterol Sulfate 3 ML AMPUL.NEB INHALATION ×3 (01:20→20:31)
--- NOTE | 2020-07-06 05:55 | RAD_ITS ---
STUDY: X-RAY CHEST REASON FOR EXAM: Female, 70 years old. Pneumonia -- covid+ TECHNIQUE: Single AP portable view of the chest. COMPARISON: Comparison is made with prior study dated 06/26/2020. FINDINGS: EKG electrodes are seen. Since prior study, there has been a moderate degree of improved aeration at the left lung base. Mild residual pleural-parenchymal changes persist at the left lung base. Normal size heart. Normal mediastinum and mariely. Normal visualized pulmonary arteries. Normal visualized aortic arch and descending thoracic aorta. There are diffuse degenerative changes of the visualized thoracic spine. There is degenerative osteoarthritis of the bilateral shoulders. There is no demonstrated abnormality of the visualized soft tissue structures of the upper abdomen. RAD/Chest 1 View (Portable) IMPRESSION: Mild residual pleural-parenchymal changes at the left lung base. Electronically Signed: Barrett Liu, at 9:03 EST , Service support ,
[2020-07-06 06:41] LABS: Bedside Glucose 125 mg/dL (70-110)
[2020-07-06] MEDS: Rivastigmine 9.5mg Patch 1 PATCH TD (08:23)
[2020-07-06] MEDS: Enoxaparin 40 MG/0.4 ML Syringe SC ×2 (08:24→21:28)
[2020-07-06] MEDS: Menthol/Lanolin/Calamine/Znox 113 GM Tube 1 APPLIC TOPICAL ×2 (08:25→20:15)
--- NOTE | 2020-07-06 15:40 | PN_ITS ---
Patient Problems: Active and Suspected Problems SARS (severe acute respiratory syndrome) (Acute) Sepsis (Acute) Subjective: Patient did okay overnight. Patient not very interactive on my evaluation. Patient did deny pain, but unable to get her to answer any other questions Objective: Chest x-ray was personally reviewed and shows no significant change compared to previous. - Physical Exam Vitals/I&O's: Vital Signs Temp Pulse Resp BP Pulse Ox 37.1 C 107 H 32 H 94/71 95 07/06/20 14:11 07/06/20 14:11 07/06/20 14:11 07/06/20 14:11 07/06/20 14:11 Oxygen Flow Rate (L/min) 50 Oxygen Delivery Method Airvo Weight: 55.5 kg Body Mass Index (BMI) 21.6 Finger Stick Blood Glucose 178 Intake and Output for Last 24 Hours 07/04/20 07/05/20 07/06/20 23:59 23:59 23:59 Intake Total 480 / 480 0 / 0 50 / 50 Output Total 875 / 875 525 / 525 325 / 325 Balance -395 / -395 -525 / -525 -275 / -275 General: - - Resting comfortably. Not really following commands. HEENT: Atraumatic, PERRLA, EOMI, - - Slight scleral injection Oral: Moist Mucosa, No Gingival or Mucosal Lesions/ Ulcerations Neck: Supple, No JVD, No Nodes, Trachea Midline Lungs: No rhonchi, No wheeze, No rales, Diminished, - - Fair effort Cardiovascular: Normal S1, Normal S2, No murmurs, No rub noted, No Gallop, Tachycardic Abdomen: Bowel Sounds Present, Soft, Non Tender, Non-Distended Extremities: No clubbing, No cyanosis, No edema, Capillary Refill Less than 3 Seconds Skin: - - No change compared to previous Musculoskeletal: No Tenderness to Palpation of Joints or Extremities Lymphatic: No Cervical, Supraclavicular, or Inguinal Adenopathy Neurological: Cranial nerves II-XII grossly intact, Neuro grossly intact - No change from previous. Psych/Mental Status: Flat Affect Laboratory Results 07/05/20 17:24: POC Glucose 218 H 07/05/20 21:50: POC Glucose 128 H 07/06/20 06:18: POC Glucose 125 H Current Medications Acetaminophen (Acetaminophen 650 Mg Suppository) 650 mg RECTAL Q4H PRN PRN PRN Reason: Pain Score 1-10/Temp > 100.7 F Last Admin: 07/05/20 02:24 Dose: 650 mg Documented by: Albuterol/Ipratropium (Ipratropium/Albuterol Sulfate 3 Ml Ampul.Neb) 3 ml INHALATION Q6H.RT [facility] Last Admin: 07/06/20 07:14 Dose: 3 ml Documented by: Calamine/Phenol (Menthol/Lanolin/Calamine/Znox 113 Gm Tube) 1 applic TOPICAL BID [facility]; Protocol Last Admin: 07/06/20 08:25 Dose: 1 applicatio Documented by: Dextrose (Dextrose 50%-Water 25 Gm/50 Ml Disp.Syrin) 0 gm IV X1 PRN; Protocol PRN Reason: Hypoglycemia Enoxaparin Sodium (Enoxaparin 40 Mg/0.4 Ml Syringe) 40 mg SC BID [facility] Last Admin: 07/06/20 08:24 Dose: 40 mg Documented by: Glucagon (Glucagon 1 Mg/Ml Syringe) 1 mg IM .X1 PRN PRN Reason: Hypoglycemia Insulin Glargine (Insulin Glargine 100 Units/Ml Pen) 30 units SC BID [facility] Last Admin: 07/06/20 08:24 Dose: Not Given Documented by: Insulin Human Lispro (Insulin Lispro 100 Unit/Ml Insuln.Pen) 0 unit SC ACHS [facility]; Protocol Last Admin: 07/06/20 11:13 Dose: Not Given Documented by: Ondansetron HCl (Ondansetron 4 Mg/2 Ml Vial) 4 mg IV Q8H PRN PRN PRN Reason: NAUSEA/VOMITING Rivastigmine (Rivastigmine 9.5mg Patch) 1 patch TD DAILY [facility] Last Admin: 07/06/20 08:23 Dose: 1 patch Documented by: Sodium Chloride (0.9% Saline Lock 10 Ml Syringe) 10 - 40 ml IV UD PRN PRN Reason: SALINE FLUSH Last Admin: 07/04/20 07:59 Dose: 30 ml Documented by: Clinical Impression(s) from Imaging Studies Chest X-Ray 07/06/20 05:55 IMPRESSION: Mild residual pleural-parenchymal changes at the left lung base. Electronically Signed: Barrett Liu, at 9:03 EST , Service support , Medical Necessity - Tobacco Use Smoking Status: Never smoker Assessment/Plan All Active Problems SARS (severe acute respiratory syndrome) (Acute) Sepsis (Acute) RECOMMENDATIONS: 1. Continue to wean FiO2 to maintain oxygen saturations at or above 90%. 2. Continue Lovenox as ordered. 3. Out of bed as tolerated 4. Encourage incentive spirometer use. 5. Repeat chemistries tomorrow morning with possible diuresis. IMPRESSIONS: 1. Acute hypoxemic respiratory failure secondary to COVID-19 pneumonia The patient continues to have significant oxygen requirements. She has completed her treatment courses of remdesivir and Decadron. Continue to wean supplemental oxygen as tolerated to maintain saturations at or above 90%. Recommend continued attempts at diuresis as tolerated by hemodynamics and renal function. Recovery limited secondary to body habitus, mental status and patient participation. Hold on diuresis secondary to hypernatremia and hyperchloremia 2. Diabetes mellitus/baseline MRDD/hyperlipidemia Complicates care, management, recovery and prognosis. Continue Lantus and sliding scale insulin coverage. Inpatient E&M: 16111 [facility] Hosp L2
[2020-07-06 16:10] LABS: Bedside Glucose 151 mg/dL (70-110)
[2020-07-06] MEDS: Insulin Lispro 100 UNIT/ML INSULN.PEN SC ×2 (17:42→21:30)
[2020-07-06 17:45] LABS: Bedside Glucose 230 mg/dL (70-110)
--- NOTE | 2020-07-06 19:15 | PN_ITS ---
Patient Problems: Active and Suspected Problems SARS (severe acute respiratory syndrome) (Acute) Sepsis (Acute) Subjective: Patient was seen and examined today, she still remains on high flow oxygen, she was able to little bit of applesauce but she still remains with lethargic. Because of the patient's long protracted hospital course and her multiple comorbidities, I talked at length with the patient's sister, it is my opinion that the patient will not recover from this Covid infection, she has not had adequate nutrition intake, patient's sister told me that in earlier years the patient signed paperwork stating that she did not want to be put on a ventilator or have a feeding tube inserted. I asked the patient's sister and her family to consider making the patient comfort care, decreasing her oxygen and medicating the patient so that the patient would pass peacefully. I told the patient's sister that I did not feel hospice would be of any benefit because the hospice inpatient facility would likely not take the patient and that I was comfortable with providing medications to keep the patient comfortable in turning her oxygen down. The patient's sister stated that she would contact me tomorrow with her final answer, for now, she is agreed that I do not start fluids on the patient-I do not think this would be of any benefit overall as the patient's nutritional status is poor. - Physical Exam Vitals/I&O's: Vital Signs Temp Pulse Resp BP Pulse Ox 98.7 F 123 H 36 H 98/56 L 91 07/06/20 19:04 07/06/20 19:04 07/06/20 19:04 07/06/20 19:04 07/06/20 19:04 Oxygen Flow Rate (L/min) 50 Oxygen Delivery Method Airvo Weight: 55.5 kg Body Mass Index (BMI) 21.6 Finger Stick Blood Glucose 178 Intake and Output for Last 24 Hours 07/04/20 07/05/20 07/06/20 23:59 23:59 23:59 Intake Total 480 / 480 0 / 0 50 / 50 Output Total 875 / 875 525 / 525 450 / 450 Balance -395 / -395 -525 / -525 -400 / -400 General: Lethargic, - - Patient is alert at times during my examination but is lethargic and somnolent, she is not verbal HEENT: Atraumatic, PERRLA, EOMI, Normocephalic Oral: Moist Mucosa Neck: Supple, No JVD, Trachea Midline, Thyroid Normal Size and Texture Lungs: Clear to auscultation, Normal air movement, No rhonchi, No wheeze, No rales Cardiovascular: Regular rate, Regular Rhythm, Normal S1, Normal S2, No murmurs, PMI Normal, No rub noted, No Gallop Abdomen: Bowel Sounds Present, Soft, Non Tender, Non-Distended Extremities: No clubbing, No cyanosis, No edema, Capillary Refill Less than 3 Seconds Skin: No rashes, No breakdown Neurological: Cranial nerves II-XII grossly intact, Neuro grossly intact Psych/Mental Status: - - She is lethargic and somnolent, she is nonverbal Laboratory Results 07/05/20 21:50: POC Glucose 128 H 07/06/20 06:18: POC Glucose 125 H 07/06/20 11:13: POC Glucose 151 H 07/06/20 17:35: POC Glucose 230 H Current Medications Acetaminophen (Acetaminophen 650 Mg Suppository) 650 mg RECTAL Q4H PRN PRN PRN Reason: Pain Score 1-10/Temp > 100.7 F Last Admin: 07/05/20 02:24 Dose: 650 mg Documented by: Albuterol/Ipratropium (Ipratropium/Albuterol Sulfate 3 Ml Ampul.Neb) 3 ml INHALATION Q6H.RT [facility] Last Admin: 07/06/20 07:14 Dose: 3 ml Documented by: Calamine/Phenol (Menthol/Lanolin/Calamine/Znox 113 Gm Tube) 1 applic TOPICAL BID [facility]; Protocol Last Admin: 07/06/20 08:25 Dose: 1 applicatio Documented by: Dextrose (Dextrose 50%-Water 25 Gm/50 Ml Disp.Syrin) 0 gm IV X1 PRN; Protocol PRN Reason: Hypoglycemia Enoxaparin Sodium (Enoxaparin 40 Mg/0.4 Ml Syringe) 40 mg SC BID [facility] Last Admin: 07/06/20 08:24 Dose: 40 mg Documented by: Glucagon (Glucagon 1 Mg/Ml Syringe) 1 mg IM .X1 PRN PRN Reason: Hypoglycemia Insulin Glargine (Insulin Glargine 100 Units/Ml Pen) 30 units SC BID [facility] Last Admin: 07/06/20 08:24 Dose: Not Given Documented by: Insulin Human Lispro (Insulin Lispro 100 Unit/Ml Insuln.Pen) 0 unit SC ACHS [facility]; Protocol Last Admin: 07/06/20 17:42 Dose: 4 units Documented by: Ondansetron HCl (Ondansetron 4 Mg/2 Ml Vial) 4 mg IV Q8H PRN PRN PRN Reason: NAUSEA/VOMITING Rivastigmine (Rivastigmine 9.5mg Patch) 1 patch TD DAILY [facility] Last Admin: 07/06/20 08:23 Dose: 1 patch Documented by: Sodium Chloride (0.9% Saline Lock 10 Ml Syringe) 10 - 40 ml IV UD PRN PRN Reason: SALINE FLUSH Last Admin: 07/04/20 07:59 Dose: 30 ml Documented by: Medical Necessity - Tobacco Use Smoking Status: Never smoker Assessment/Plan All Active Problems SARS (severe acute respiratory syndrome) (Acute) Sepsis (Acute) #1 acute hypoxic respiratory failure secondary to COVID-19 pneumonia-prognosis overall remains poor due to the patient's multiple medical problems which includes dementia and MRDD. Patient's chest x-ray today showed mild residual pleural-parenchymal changes at the left lung base. Again, patient's family will contact me with their wishes regarding further supportive care versus withdrawing treatment and allowing the patient to . #2 chronic cognitive impairment/MRDD/dementia-this makes the prognosis overall very poor #3 bilateral COVID-19 pneumonia #4 type 2 diabetes-blood sugars will be monitored, patient will be administered sliding scale insulin as needed #5 sepsis secondary to acute COVID-19 infection Inpatient E&M: [id number] [facility] Hosp L2
[2020-07-06 21:41] LABS: Bedside Glucose 231 mg/dL (70-110)
[2020-07-07] VITALS (26 sets, daily range): BP systolic 80–105; BP diastolic 46–64; PULSE 115–128; RESP 16–39; TEMP 36.3–37.4; O2SAT 88–96
[2020-07-07 05:38] LABS: Absolute Lymphocyte Count 2.04 X10^3/uL (0.83-4.51); Absolute Neutrophil Count 8.7 X10^3/uL (2.0-7.7); Basophil# 0.02 X10^3/uL; Basophil% 0.2 % (0-1); Hematocrit 35.6 % (37-47); Hemoglobin 10.3 g/dL (12.0-15.0); Lymphocyte # 2.04 X10^3/ul (4.0); Lymphocyte % 18.4 % (19-41); Mean Corp Hgb Conc 28.9 g/dL (32-36); Mean Corpuscular Hgb 30.7 pg (27.0-32.0); Mean Platelet Vol. 12.5 fl (6.2-12.0); Monocyte# 0.28 X10^3/uL; Monocyte% 2.5 % (0-10); NRBC Flagged by Analyzer 0.5 % (0-5); Neutrophil # 8.66 X10^3/uL (2.7-7.7); Neutrophil % 78.4 % (47-70); POSITIVE MORPHOLOGY YES; Platelet Count 280 K/mm3 (150-450); RBC Distribution Width SD 61.1 fl (35.1-43.9); Red Blood Count 3.36 M/mm3 (4.2-5.4); White Blood Count 11.1 K/mm3 (4.4-11.0)
[2020-07-07 05:58] LABS: Differential Indicated SCAN CRITERIA MET
[2020-07-07 06:21] LABS: ALB/GLOB Ratio 0.7 RATIO (0.9-2.4); AST(SGOT) 51 U/L (15-37); Alanine Aminotransfer ALT/SGPT 36 U/L (13-56); Albumin, Serum 2.4 g/dL (3.2-5.0); Alkaline Phosphatase 87 U/L (45-117); Anion Gap 10 (5-15); BUN 70 mg/dL (7-18); BUN/Creat Ratio 59.8 RATIO (10-20); Calcium,Total 8.1 mg/dL (8.5-10.1); Chloride 126 mmol/L (98-107); Creatinine, Serum 1.17 mg/dL (0.55-1.02); EST Glomerular Filtration Rate 49 mL/min (>60); Est Glom Filt Rate - Afr Amer 59 mL/min (>60); Estimated Creatinine Clearance 40.32 ml/min; Globulin 3.6 g/dL (2.2-4.2); Glucose 229 mg/dL (74-106); Magnesium 2.6 mg/dL (1.6-2.6); Potassium 3.4 mmol/L (3.5-5.1); Sodium Level 161 mmol/L (136-145)
[2020-07-07] MEDS: Ipratropium/Albuterol Sulfate 3 ML AMPUL.NEB INHALATION ×2 (07:33→13:29)
[2020-07-07] MEDS: Insulin Lispro 100 UNIT/ML INSULN.PEN SC ×2 (07:41→11:08)
[2020-07-07] MEDS: 0.9% Saline Lock 10 ML Syringe IV ×4 (07:46→21:17)
[2020-07-07 08:01] LABS: Bedside Glucose 299 mg/dL (70-110)
[2020-07-07] MEDS: Rivastigmine 9.5mg Patch 1 PATCH TD (09:10)
[2020-07-07] MEDS: Menthol/Lanolin/Calamine/Znox 113 GM Tube 1 APPLIC TOPICAL ×2 (09:10→21:19)
[2020-07-07] MEDS: Enoxaparin 40 MG/0.4 ML Syringe SC (09:12)
[2020-07-07 11:21] LABS: Bedside Glucose 341 mg/dL (70-110)
[2020-07-07] MEDS: Morphine 4 MG/ML Syringe 6 MG IV (16:26)
[2020-07-07 16:41] LABS: Bedside Glucose > 500 mg/dL (70-110)
--- NOTE | 2020-07-07 17:31 | CHAPLAIN ---
Type of Pastoral Visit ___ Initial Visit ___ Follow-up Visit ___ On-call Visit ___ General Patient Visit ___ Spiritual Assessment ___ Family Conference ___ Bereavement ___ Rapid Response ___ Code Blue _x__ Other (describe below) Pastoral Care Referral From ___ Patient _x__ Family ___ Nurse ___ Physician ___ Annealing Operator ___ Developing Machine Tender ___ Other (describe below) Sacrament/Intervention ___ Active listening ___ Anointing ___ Judaism ___ Bereavement ___ Communion ___ Diamond exploration ___ ___ Life review _x__ Prayer ___ Reconciliation ___ Sacrament of Sick _x__ Supportive presence ___ Wedding ___ Other (describe below) Pastoral Comments family requested spiritual care and support for patient; called into this isolation room where RICE MILLING SUPERVISOR assisted pt with phone; talked, prayed, and sang song to patient; pt did not give verbal response but hope was that she heard and understood; called family of patient later to offer support
[2020-07-07] MEDS: morphine 10 MG/ML Syringe 6 MG IV ×2 (20:06→21:14)
--- NOTE | 2020-07-07 21:31 | PCM.PROGNOTE ---
Patient Problems: Active and Suspected Problems SARS (severe acute respiratory syndrome) (Acute) Sepsis (Acute) Subjective: Patient was seen and examined today, she stated that she had pain to this examiner but was not able to elaborate it. I talked at length with patient's sister today, the patient's sister who is the POA has discussed the patient's care with her family and has decided to allow me to make a decision on behalf of the patient whether to continue present treatment or provide comfort measures, I talked briefly with pulmonary medicine today and it was their opinion that comfort measures would be appropriate for this patient and I agree. Today I reduce the patient's oxygen to nasal cannula oxygen and medicated the patient for comfort with morphine for any respiratory distress. Patient's sister was adamant about the patient being comfortable and not suffering at all. Patient was taken out of Covid precautions because her first positive Covid test was June 15, 2020-I confirmed this with the shelter at which she resides. I change the patient's CODE STATUS to comfort care. At the time of this dictation, patient appears comfortable and have further reduced her oxygen. - Physical Exam Vitals/I&O's: Vital Signs Temp Pulse Resp BP Pulse Ox 98.9 F 117 H 20 H 95/54 L 92 07/07/20 21:03 07/07/20 21:03 07/07/20 21:03 07/07/20 21:03 07/07/20 21:03 Oxygen Flow Rate (L/min) 3 Oxygen Delivery Method Nasal Cannula Weight: 54.544 kg Body Mass Index (BMI) 21.6 Finger Stick Blood Glucose 178 Intake and Output for Last 24 Hours 07/05/20 07/06/20 07/07/20 23:59 23:59 23:59 Intake Total 0 / 0 170 / 170 550 / 550 Output Total 525 / 525 550 / 550 200 / 200 Balance -525 / -525 -380 / -380 350 / 350 General: Well developed, Lethargic HEENT: Atraumatic, PERRLA, EOMI, Normocephalic Neck: Supple, No JVD, Trachea Midline, Thyroid Normal Size and Texture Lungs: Clear to auscultation, Normal air movement, No rhonchi, No wheeze, No rales Cardiovascular: Regular rate, Regular Rhythm, Normal S1, Normal S2, No murmurs, PMI Normal, No rub noted, No Gallop Abdomen: Bowel Sounds Present, Soft, Non Tender, Non-Distended Extremities: No clubbing, No cyanosis, No edema, Capillary Refill Less than 3 Seconds Skin: No rashes, No breakdown Neurological: Cranial nerves II-XII grossly intact, Neuro grossly intact Psych/Mental Status: - - Patient shows signs of cognitive impairment, she is confused and unable to verbalize Laboratory Results 07/06/20 21:20: POC Glucose 231 H 07/07/20 04:20: WBC 11.1 H, RBC 3.36 L, Hgb 10.3 L, Hct 35.6 L, MCV 106.0 H, MCH 30.7, MCHC 28.9 L, RDW Std Deviation 61.1 H, RDW Coeff of Kim 16.0 H, Plt Count 280, MPV 12.5 H, Immature Gran % (Auto) 0.500, Neut % (Auto) 78.4 H, Lymph % (Auto) 18.4 L, Simpson % (Auto) 2.5, Eos % (Auto) 0.0, Baso % (Auto) 0.2, Absolute Neuts (auto) 8.7 H, Absolute Lymphs (auto) 2.04, Nucleated RBC % 0.5 07/07/20 04:20: Sodium 161 H*, Potassium 3.4 L, Chloride 126 H, Carbon Dioxide 25.0, Anion Gap 10, BUN 70 H, Creatinine 1.17 H, Estim Creat Clear Calc 40.32, Est GFR (MDRD) Af Amer 59 L, Est GFR (MDRD) Non-Af 49 L, BUN/Creatinine Ratio 59.8 H, Glucose 229 H, Calcium 8.1 L, Magnesium 2.6, Total Bilirubin 0.40, AST 51 H, ALT 36, Alkaline Phosphatase 87, Total Protein 6.0 L, Albumin 2.4 L, Globulin 3.6, Albumin/Globulin Ratio 0.7 L 07/07/20 07:39: POC Glucose 299 H 07/07/20 11:07: POC Glucose 341 H 07/07/20 16:32: POC Glucose > 500 H* Current Medications Acetaminophen (Acetaminophen 650 Mg Suppository) 650 mg RECTAL Q4H PRN PRN PRN Reason: Pain Score 1-10/Temp > 100.7 F Last Admin: 07/05/20 02:24 Dose: 650 mg Documented by: Albuterol/Ipratropium (Ipratropium/Albuterol Sulfate 3 Ml Ampul.Neb) 3 ml INHALATION Q6H.RT [facility] Last Admin: 07/07/20 13:29 Dose: 3 ml Documented by: Calamine/Phenol (Menthol/Lanolin/Calamine/Znox 113 Gm Tube) 1 applic TOPICAL BID [facility]; Protocol Last Admin: 07/07/20 21:19 Dose: 1 applicatio Documented by: Dextrose (Dextrose 50%-Water 25 Gm/50 Ml Disp.Syrin) 0 gm IV X1 PRN; Protocol PRN Reason: Hypoglycemia Enoxaparin Sodium (Enoxaparin 40 Mg/0.4 Ml Syringe) 40 mg SC BID [facility] Last Admin: 07/07/20 21:19 Dose: Not Given Documented by: Glucagon (Glucagon 1 Mg/Ml Syringe) 1 mg IM .X1 PRN PRN Reason: Hypoglycemia Insulin Glargine (Insulin Glargine 100 Units/Ml Pen) 30 units SC BID [facility] Last Admin: 07/07/20 21:18 Dose: Not Given Documented by: Insulin Human Lispro (Insulin Lispro 100 Unit/Ml Insuln.Pen) 0 unit SC ACHS [facility]; Protocol Last Admin: 07/07/20 21:17 Dose: Not Given Documented by: Morphine Sulfate (Morphine 10 Mg/Ml Syringe) 6 mg IV Q1H PRN PRN PRN Reason: Pain Score 1-10 Last Admin: 07/07/20 21:14 Dose: 6 mg Documented by: Ondansetron HCl (Ondansetron 4 Mg/2 Ml Vial) 4 mg IV Q8H PRN PRN PRN Reason: NAUSEA/VOMITING Rivastigmine (Rivastigmine 9.5mg Patch) 1 patch TD DAILY [facility] Last Admin: 07/07/20 09:10 Dose: 1 patch Documented by: Sodium Chloride (0.9% Saline Lock 10 Ml Syringe) 10 - 40 ml IV UD PRN PRN Reason: SALINE FLUSH Last Admin: 07/07/20 21:17 Dose: 10 ml Documented by: Medical Necessity - Tobacco Use Smoking Status: Never smoker Assessment/Plan All Active Problems SARS (severe acute respiratory syndrome) (Acute) Sepsis (Acute) #1 acute hypoxic respiratory failure secondary to COVID-19 pneumonia-patient status was changed to comfort care, I will continue to wean oxygen and provide comfort measures with IV morphine. I feel that the patient's is eminent, patient's family agrees with current treatment. #2 chronic cognitive impairment/MRDD/dementia #3 bilateral COVID-19 pneumonia #4 type 2 diabetes-blood sugars will not be monitored due to the patient's comfort care status #5 sepsis secondary to acute COVID-19 infection #6 severe malnutrition secondary to COVID-19 and effects of dementia and mental retardation. Inpatient E&M: 14615 Subs Hosp L2
[2020-07-08] VITALS (13 sets, daily range): BP systolic 68–85; BP diastolic 44–48; PULSE 120–129; RESP 15–27; TEMP 37.4–38.4; O2SAT 81–92
[2020-07-08] MEDS: morphine 10 MG/ML Syringe 6 MG IV ×3 (00:29→04:19)
[2020-07-08] MEDS: 0.9% Saline Lock 10 ML Syringe IV ×3 (00:33→04:19)
[2020-07-08] MEDS: Acetaminophen 650 MG Suppository RECTAL ×2 (04:55→21:58)
[2020-07-08] MEDS: Menthol/Lanolin/Calamine/Znox 113 GM Tube 1 APPLIC TOPICAL (10:26)
--- NOTE | 2020-07-08 17:42 | PCM.PROGNOTE ---
Patient Problems: Active and Suspected Problems SARS (severe acute respiratory syndrome) (Acute) Sepsis (Acute) Subjective: Patient was seen and examined today, she does not respond to any verbal or painful stimuli at this time, I removed her from oxygen today due to what I felt was her eminent , at the time of this dictation later in the afternoon, patient's heart rate is in the 120s and her pulse ox is around 65. She does not appear to be in any distress on examination. Patient has what appears to be blood in her urine draining into the Culp bag. - Physical Exam Vitals/I&O's: Vital Signs Temp Pulse Resp BP Pulse Ox 100.3 F H 126 H 19 H 80/45 L 81 07/08/20 14:07 07/08/20 15:00 07/08/20 14:07 07/08/20 14:07 07/08/20 14:07 Oxygen Flow Rate (L/min) 2 Oxygen Delivery Method Nasal Cannula Weight: 54.5 kg Body Mass Index (BMI) 21.6 Finger Stick Blood Glucose 178 Intake and Output for Last 24 Hours 07/06/20 07/07/20 07/08/20 23:59 23:59 23:59 Intake Total 170 / 170 550 / 550 0 / 0 Output Total 550 / 550 300 / 300 275 / 275 Balance -380 / -380 250 / 250 -275 / -275 General: No apparent distress, Lethargic HEENT: Atraumatic, PERRLA, EOMI, Normocephalic Oral: Dry Mucosa Neck: Supple, No JVD, Negative Carotid Bruits Lungs: Clear to auscultation, - - Shallow respirations are noted Cardiovascular: Regular rate, Regular Rhythm, No murmurs, Tachycardic Abdomen: Bowel Sounds Present, Soft, Non Tender, Non-Distended Extremities: No clubbing, No cyanosis, No edema, Capillary Refill Less than 3 Seconds Skin: No rashes, No breakdown Musculoskeletal: No Tenderness to Palpation of Joints or Extremities Neurological: - - Patient is somnolent and does not respond to verbal or painful stimuli Psych/Mental Status: - - Patient is comatose at this time Current Medications Acetaminophen (Acetaminophen 650 Mg Suppository) 650 mg RECTAL Q4H PRN PRN PRN Reason: Pain Score 1-10/Temp > 100.7 F Last Admin: 07/08/20 04:55 Dose: 650 mg Documented by: Calamine/Phenol (Menthol/Lanolin/Calamine/Znox 113 Gm Tube) 1 applic TOPICAL BID [facility]; Protocol Last Admin: 07/08/20 10:26 Dose: 1 applicatio Documented by: Dextrose (Dextrose 50%-Water 25 Gm/50 Ml Disp.Syrin) 0 gm IV X1 PRN; Protocol PRN Reason: Hypoglycemia Enoxaparin Sodium (Enoxaparin 40 Mg/0.4 Ml Syringe) 40 mg SC BID [facility] Last Admin: 07/08/20 10:12 Dose: Not Given Documented by: Glucagon (Glucagon 1 Mg/Ml Syringe) 1 mg IM .X1 PRN PRN Reason: Hypoglycemia Insulin Glargine (Insulin Glargine 100 Units/Ml Pen) 30 units SC BID [facility] Last Admin: 07/08/20 10:12 Dose: Not Given Documented by: Insulin Human Lispro (Insulin Lispro 100 Unit/Ml Insuln.Pen) 0 unit SC ACHS [facility]; Protocol Last Admin: 07/08/20 16:12 Dose: Not Given Documented by: Morphine Sulfate (Morphine 10 Mg/Ml Syringe) 6 mg IV Q1H PRN PRN PRN Reason: Pain Score 1-10 Last Admin: 07/08/20 04:19 Dose: 6 mg Documented by: Ondansetron HCl (Ondansetron 4 Mg/2 Ml Vial) 4 mg IV Q8H PRN PRN PRN Reason: NAUSEA/VOMITING Rivastigmine (Rivastigmine 9.5mg Patch) 1 patch TD DAILY [facility] Last Admin: 07/08/20 10:26 Dose: Not Given Documented by: Sodium Chloride (0.9% Saline Lock 10 Ml Syringe) 10 - 40 ml IV UD PRN PRN Reason: SALINE FLUSH Last Admin: 07/08/20 04:19 Dose: 10 ml Documented by: Medical Necessity - Tobacco Use Smoking Status: Never smoker Assessment/Plan All Active Problems SARS (severe acute respiratory syndrome) (Acute) Sepsis (Acute) #1 acute hypoxic respiratory failure secondary to COVID-19 pneumonia-I believe that the patient is still actively dying, her pulse ox is declining and she is tachycardic. I feel that is eminent within a few hours. #2 chronic cognitive impairment/MRDD/dementia #3 bilateral COVID-19 pneumonia #4 type 2 diabetes-blood sugars will not be monitored due to the patient's comfort care status #5 sepsis secondary to acute COVID-19 infection #6 severe malnutrition secondary to COVID-19 and effects of dementia and mental retardation. Inpatient E&M: [id number] Subs Hosp L2
[2020-07-09 02:47] VITALS: PULSE 122
[2020-07-09 02:57] VITALS: BP 66/37; PULSE 126; RESP 27; TEMP 38.2; O2SAT 78
[2020-07-09 07:00] VITALS: PULSE 120
[2020-07-09 07:16] LABS: Absolute Lymphocyte Count 1.98 X10^3/uL (0.83-4.51); Absolute Neutrophil Count 7.6 X10^3/uL (2.0-7.7); Basophil# 0.01 X10^3/uL; Basophil% 0.1 % (0-1); Hematocrit 30.5 % (37-47); Hemoglobin 8.7 g/dL (12.0-15.0); Lymphocyte # 1.98 X10^3/ul (4.0); Lymphocyte % 20.2 % (19-41); Mean Corp Hgb Conc 28.5 g/dL (32-36); Mean Corpuscular Hgb 30.3 pg (27.0-32.0); Mean Corpuscular Volume 106.3 fL (81-99); Mean Platelet Vol. 13.6 fl (6.2-12.0); Monocyte# 0.17 X10^3/uL; Monocyte% 1.7 % (0-10); NRBC Flagged by Analyzer 0.4 % (0-5); Neutrophil # 7.55 X10^3/uL (2.7-7.7); Neutrophil % 77.3 % (47-70); POSITIVE MORPHOLOGY YES; Platelet Count 157 K/mm3 (150-450); RBC Distribution Width CV 16.1 % (11.6-14.6); RBC Distribution Width SD 62.4 fl (35.1-43.9); Red Blood Count 2.87 M/mm3 (4.2-5.4); White Blood Count 9.8 K/mm3 (4.4-11.0)
[2020-07-09 07:17] LABS: Differential Indicated SCAN CRITERIA MET
[2020-07-09 07:31] VITALS: O2SAT 93
--- NOTE | 2020-07-09 07:33 | NURSING ---
SISTER JAMEEL CALLED AND UPDATED ABOUT PATIENT THROUGH THE NIGHT
[2020-07-09 07:37] LABS: Differential Comment SCANNED
[2020-07-09 07:52] LABS: ALB/GLOB Ratio 0.4 RATIO (0.9-2.4); AST(SGOT) 627 U/L (15-37); Alanine Aminotransfer ALT/SGPT 204 U/L (13-56); Albumin, Serum 1.8 g/dL (3.2-5.0); Alkaline Phosphatase 68 U/L (45-117); Anion Gap 16 (5-15); BUN 127 mg/dL (7-18); BUN/Creat Ratio 21.9 RATIO (10-20); Calcium,Total 7.5 mg/dL (8.5-10.1); Chloride 124 mmol/L (98-107); Creatinine, Serum 5.79 mg/dL (0.55-1.02); EST Glomerular Filtration Rate 8 mL/min (>60); Est Glom Filt Rate - Afr Amer 9 mL/min (>60); Globulin 4.6 g/dL (2.2-4.2); Glucose 506 mg/dL (74-106); Magnesium 2.8 mg/dL (1.6-2.6); Potassium 5.4 mmol/L (3.5-5.1); Protein, Total 6.4 g/dL (6.4-8.2); Sodium Level 157 mmol/L (136-145)
[2020-07-09 08:41] VITALS: BP 57/37; PULSE 119; RESP 25; TEMP 37.4; O2SAT 70
[2020-07-09] MEDS: morphine 10 MG/ML Syringe 6 MG IV ×2 (08:51→09:54)
--- NOTE | 2020-07-09 10:57 | NURSING ---
Patient pronounced by two RNs, Aleyda Hendricks and Magdy Pruett at [phone]. Next of kin notified, all IV sites and jolley catheter removed. Post mortem care provided and patient taken to [facility] [place] at [id number]
--- NOTE | 2020-07-10 16:41 | PCM.DEATH ---
Preliminary Cause of Hypoxia secondary to COVID-19 pneumonia Date of Admission: 06/26/20 Date of : 07/09/20 - Principle Diagnosis #1 acute hypoxic respiratory failure secondary to COVID-19 pneumonia #2 COVID-19 pneumonia #3 mental retardation developmental delay #4 type 2 diabetes #5 Alzheimer's dementia #6 severe malnutrition secondary to COVID-19 and effects of dementia and mental retardation #7 sepsis secondary to acute COVID-19 infection Problem List: Active and Suspected Problems SARS (severe acute respiratory syndrome) (Acute) Sepsis (Acute) Hospital Course This 70-year-old white female was admitted through the emergency room at [facility] with hypoxia secondary to COVID-19 pneumonia, this had been diagnosed at the [facility] facility which the patient resided on June 15, 2020. Patient's medical problems included Alzheimer's dementia, MRDD and type 2 diabetes. Patient was admitted to PCU, she was placed on remdesivir and dexamethasone, initially patient was also placed on IV antibiotics due to concerns of urosepsis. Patient was unable to take oral meds due to obtundation. Patient's medical status remained poor during her hospital course and she showed little improvement in her oxygenation for several days. POA made the patient a DNR CC arrest with no intubation at the time of admission. Patient was unable to eat and I had several discussions with her POA and we agreed that there was no point in a temporary feeding tube insertion. Patient was finally made a comfort care and was given morphine for respiratory distress, she on 07/09/2020 at 10:13 AM. Inpatient E&M: [id number] [facility]
== END 2020-07-09 10:13 | DRG 871 ==
LOC: ED 06-26 00:54 → PCU 06-26 03:22
PROVIDERS: Hospitalist; Internal Medicine; Internal Medicine Critical Care Medicine; Internal Medicine Infectious Disease; Admitting Provider Hospitalist; Emergency Provider Emergency Medicine; PCP Family Medicine; Visit Provider Internal Medicine
DX: A41.89 Other specified sepsis (principal); U07.1 COVID-19; J96.01 Acute respiratory failure with hypoxia; J12.89 Other viral pneumonia; E43 Unspecified severe protein-calorie malnutrition; N30.00 Acute cystitis without hematuria; N17.9 Acute kidney failure, unspecified; E87.0 Hyperosmolality and hypernatremia; G93.40 Encephalopathy, unspecified; R65.20 Severe sepsis without septic shock; G30.9 Alzheimer's disease, unspecified; F02.80 Dementia in other diseases classified elsewhere, unspecified severity, without behavioral disturbance, psychotic disturbance, mood disturbance, and anxiety; E86.0 Dehydration; E87.6 Hypokalemia; E87.8 Other disorders of electrolyte and fluid balance, not elsewhere classified; E11.65 Type 2 diabetes mellitus with hyperglycemia; E78.5 Hyperlipidemia, unspecified; F79 Unspecified intellectual disabilities; F31.9 Bipolar disorder, unspecified; Z66 Do not resuscitate; Z68.21 Body mass index [BMI] 21.0-21.9, adult; Z79.82 Long term (current) use of aspirin; Z79.01 Long term (current) use of anticoagulants; Z79.4 Long term (current) use of insulin; Z79.83 Long term (current) use of bisphosphonates; Z79.899 Other long term (current) drug therapy; Z51.5 Encounter for palliative care
CPT/HCPCS: 36415; 36600; 71045; 71275; 80048; 80053; 80164; 80202; 81001; 82803; 82962; 83605; 83735; 83880; 83930; 84145; 84484; 85025; 85027; 85379; 85610; 85730; 87040; 87086; 87426; 87635; 92507; 92526; 92610; 93005; 94002; 94003; 94640; 94660; 97110; 97162; 97166; 97530; 99285; J7030; J7040; J7050; Q9967; A4216; J1940; U0002